=== PATIENT | male | born 1925 | race Caucasian/White ===

== ENCOUNTER 2016-05-28 12:19 | Inpatient (IN) | payer OTHER, MEDICARE ==
[2016-05-28] VITALS (9 sets, daily range): BP systolic 147–188; BP diastolic 68–93; PULSE 79–112; RESP 18; TEMP 97.7–100.2; O2SAT 94–98
[~2016-05-28] VITALS: Ht 180.3 cm; Wt 78.4 kg
[2016-05-28] MEDS ORDERED: AMLO5TAB2 PO (12:24)
[2016-05-28] MEDS ORDERED: KETO2AER3 (12:24)
[2016-05-28] MEDS ORDERED: LORA-392 PO (12:24)
[2016-05-28] MEDS ORDERED: ATOR20TA15 PO (12:24)
[2016-05-28] MEDS ORDERED: ARIC5TAB PO (12:24)
[2016-05-28] MEDS ORDERED: FLOR250C PO (12:24)
[2016-05-28] MEDS ORDERED: SODIUM CHLORIDE 0.9% FLUSH 5 ML FLUSH IVF PRN (12:30)
[2016-05-28 12:56] LABS: AUTOMATED NEUTROPHIL # 5.1 TH/MM3 (1.8-7.7); BASOPHIL # 0.1 TH/MM3 (0-0.2); BASOPHIL % 1.3 % (0.0-2.0); EOSINOPHIL # 0.7 TH/MM3 (0-0.4); EOSINOPHIL % 8.2 % (0.0-4.0); HEMATOCRIT 32.7 % (39.0-51.0); HEMO FLAGS DIFF FINAL; LYMPH % 17.6 % (9.0-44.0); LYMPHOCYTE # 1.5 TH/MM3 (1.0-4.8); MEAN CELL VOLUME 94.8 FL (80.0-100.0); MEAN CORPUSCULAR HEMOGLOBIN 32.4 PG (27.0-34.0); MEAN CORPUSCULAR HGB CONC 34.2 % (32.0-36.0); MONO % 11.1 % (0.0-8.0); NEUT % 61.8 % (16.0-70.0); PLATELET COUNT 210 TH/MM3 (150-450); RED BLOOD COUNT 3.44 MIL/MM3 (4.50-5.90); RED CELL DISTRIBUTION WIDTH 13.4 % (11.6-17.2); WHITE BLOOD COUNT 8.3 TH/MM3 (4.0-11.0)
[2016-05-28 13:06] LABS: CHLORIDE 101 MEQ/L (98-107); POTASSIUM 4.8 MEQ/L (3.5-5.1); SODIUM (NA) 135 MEQ/L (136-145)
[2016-05-28 13:09] LABS: ANION GAP 7 MEQ/L (5-15); BICARBONATE 26.6 MEQ/L (21.0-32.0)
[2016-05-28 13:10] LABS: APTT (PATIENT) 22.6 SEC (24.3-30.1); BLOOD UREA NITROGEN 30 MG/DL (7-18); PROTHROMBIN TIME - PATIENT 10.9 SEC (9.8-11.6)
[2016-05-28 13:12] LABS: ALT (GPT) 27 U/L (12-78)
[2016-05-28 13:13] LABS: AST (GOT) 31 U/L (15-37); GLOMERULAR FILTRATION RATE 38 ML/MIN (>89)
[2016-05-28 13:14] LABS: TOTAL BILIRUBIN ADULT 0.4 MG/DL (0.2-1.0)
[2016-05-28 13:15] LABS: ALKALINE PHOSPHATASE 85 U/L (45-117); CREATINE KINASE 112 U/L (39-308)
[2016-05-28 13:28] LABS: CKMB 2.6 NG/ML (0.5-3.6)
--- NOTE | 2016-05-28 13:35 | RADHPO ---
EXAM DATE/TIME: 05/28/2016 13:06 [facility] COMPARISON: No previous studies available for comparison. INDICATIONS : Short of breath MEDICAL HISTORY : None. SURGICAL HISTORY : None. ENCOUNTER: Initial ACUITY: 1 day PAIN SCORE: 0/10 LOCATION: Bilateral chest FINDINGS: A single view of the chest demonstrates the lungs to be symmetrically aerated without evidence of mas s, infiltrate or effusion. Atherosclerotic calcifications are present in the aorta. The cardiomediast inal contours are unremarkable. Osseous structures are intact. There are overlying electrocardiogram leads. CONCLUSION: No acute disease. Stan Arriaga MD on May 28, 2016 at 13:32 Board Certified Radiologist. This report was verified electronically.
--- NOTE | 2016-05-28 13:39 | PD ---
HPI Chief Complaint: Syncope/Near-Syncope Time Seen by Provider: 12:20 Travel History International Travel<30 days: No Contact w/Intl Traveler<30days: No Traveled to known affect area: No History of Present Illness HPI 89-year-old male who cannot provide history other than his right hip hurts presents by ambulance after he had a syncopal event and fell. Bystanders had said that he was out about 2 minutes. Patient does not recall any details about the event and history is significantly limited. PFSH Past Medical History High Cholesterol: Yes COPD: Yes Dementia: Yes Hypertension: Yes Tetanus Vaccination: < 5 Years Influenza Vaccination: Yes Past Surgical History Surgical History: Unable to Obtain Social History Alcohol Use: No Tobacco Use: No Substance Use: No Allergies-Medications (Allergen,Severity, Reaction): Coded Allergies: No Known Allergies (Unverified , 05/28/16) Reported Meds & Prescriptions Reported Meds & Active Scripts Active Reported Ketodan (Ketoconazole (Topical)) 2 % Aer Florastor (Saccharomyces Boulardii) 250 Mg Cap 250 Mg PO BID Atorvastatin (Atorvastatin Calcium) 20 Mg Tab 20 Mg PO HS Ativan (Lorazepam) 0.5 Mg Tab 0.5 Mg PO DAILY PRN Aricept (Donepezil) 5 Mg Tab 5 Mg PO HS Amlodipine (Amlodipine Besylate) 5 Mg Tab 5 Mg PO DAILY Review of Systems Except as stated in HPI: all other systems reviewed are Neg Physical Exam Narrative GENERAL: Well-nourished, well-developed patient. SKIN: Warm and dry. HEAD: Normocephalic and atraumatic. EYES: No injection or drainage. ENT: No nasal drainage noted. NECK: Supple, trachea midline. CARDIOVASCULAR: Regular rate and rhythm RESPIRATORY: No increased effort. No accessory muscle use. GASTROINTESTINAL: Abdomen soft, non-tender, nondistended. EXTREMITIES: Pain with palpation of right hip, no pain with other joints , neurovascularly intact, no lacerations over, compartments soft. NEUROLOGICAL: Awake, moves all extremities, clear speech Data Data Last Documented VS Vital Signs Date Time Temp Pulse Resp B/P Pulse Ox O2 Delivery O2 Flow Rate FiO2 05/28/16 12:40 Room Air 94 05/28/16 12:30 97.7 79 18 150/69 94 Orders Electrocardiogram (05/28/16 12:21) Complete Blood Count With Diff (05/28/16 12:21) Comprehensive Metabolic Panel (05/28/16 12:21) Magnesium (Mg) (05/28/16 12:21) Ckmb (Isoenzyme) Profile (05/28/16 12:21) Troponin I (05/28/16 12:21) Act Partial Throm Time (Ptt) (05/28/16 12:21) Prothrombin Time / Inr (Pt) (05/28/16 12:21) Urinalysis - C+S If Indicated (05/28/16 12:21) Chest, Single Ap (05/28/16 12:21) Ct Brain W/O Iv Contrast(Rout) (05/28/16 12:21) Ecg Monitoring (05/28/16 12:21) Iv Access Insert/Monitor (05/28/16 12:21) Oximetry (05/28/16 12:21) Sodium Chloride 0.9% Flush (Ns Flush) (05/28/16 12:30) Hip, Uni(Ap&Lat) W Ap Pelvis (05/28/16 ) CKMB (05/28/16 12:45) CKMB% (05/28/16 12:45) Sodium Chlor 0.9% 1000 Ml Inj (Ns 1000 M (05/28/16 15:00) Urinary Catheter Insert/Apply (05/28/16 14:53) Admit Order (Ed Use Only) (05/28/16 14:55) Labs Laboratory Tests Test 05/28/16 12:45 White Blood Count 8.3 TH/MM3 Red Blood Count 3.44 MIL/MM3 Hemoglobin 11.2 GM/DL Hematocrit 32.7 % Mean Corpuscular Volume 94.8 FL Mean Corpuscular Hemoglobin 32.4 PG Mean Corpuscular Hemoglobin 34.2 % Concent Red Cell Distribution Width 13.4 % Platelet Count 210 TH/MM3 Mean Platelet Volume 8.0 FL Neutrophils (%) (Auto) 61.8 % Lymphocytes (%) (Auto) 17.6 % Monocytes (%) (Auto) 11.1 % Eosinophils (%) (Auto) 8.2 % Basophils (%) (Auto) 1.3 % Neutrophils # (Auto) 5.1 TH/MM3 Lymphocytes # (Auto) 1.5 TH/MM3 Monocytes # (Auto) 0.9 TH/MM3 Eosinophils # (Auto) 0.7 TH/MM3 Basophils # (Auto) 0.1 TH/MM3 CBC Comment DIFF FINAL Differential Comment Prothrombin Time 10.9 SEC Prothromb Time International 1.0 RATIO Ratio Activated Partial 22.6 SEC Thromboplast Time Sodium Level 135 MEQ/L Potassium Level 4.8 MEQ/L Chloride Level 101 MEQ/L Carbon Dioxide Level 26.6 MEQ/L Anion Gap 7 MEQ/L Blood Urea Nitrogen 30 MG/DL Creatinine 1.70 MG/DL Estimat Glomerular Filtration 38 ML/MIN Rate Random Glucose 84 MG/DL Calcium Level 8.2 MG/DL Magnesium Level 2.0 MG/DL Total Bilirubin 0.4 MG/DL Aspartate Amino Transf 31 U/L (AST/SGOT) Alanine Aminotransferase 27 U/L (ALT/SGPT) Alkaline Phosphatase 85 U/L Total Creatine Kinase 112 U/L Creatine Kinase MB 2.6 NG/ML Troponin I LESS THAN 0.02 NG/ML Total Protein 7.3 GM/DL Albumin 3.3 GM/DL MDM Medical Decision Making Medical Screen Exam Complete: Yes Emergency Medical Condition: Yes Medical Record Reviewed: Yes (past history confirmed) Interpretation(s) EKG is sinus rhythm without STEMI criteria CBC & BMP Diagram 05/28/16 12:45 Last [address] 05/28/16 1221 Signed Impressions: Service Date/Time: Saturday, May 28, 2016 13:59 - CONCLUSION: No acute intracranial disease. Cerebral atrophy. Sander Galindo MD Chest X-Ray 05/28/16 1221 Signed Impressions: Service Date/Time: Saturday, May 28, 2016 13:06 - CONCLUSION: No acute disease. Satn Arriaga MD Hip and Pelvis X-Ray 05/28/16 0000 Signed Impressions: Service Date/Time: Saturday, May 28, 2016 13:10 - CONCLUSION: Mildly displaced intertrochanteric fracture of right hip. Sander Galindo MD Differential Diagnosis Fracture, strain, dislocation, SD, anemia, renal failure... Narrative Course Will check blood work, imaging and reevaluate ed workup with renal insufficiency and hip fracture. Lengthy discussion with the family that was updated bedside. They took notes and updated other family members. We'll discuss with admission hospital and orthopedic physician. Family initially requesting [facility] but then agreed to director organizational physician given he was part of that group Physician Communication Physician Communication dr redd agrees to admit dr los stacy agrees to consult, states needs to be at main for OR at 6 Diagnosis Primary Impression: Hip fracture, right Qualified Code: S72.001A - Hip fracture, right, closed, initial encounter Additional Impression: Renal insufficiency Admitting Information Admitting Physician Requests: Admit Kika Callejas MD May 28, 2016 13:39
--- NOTE | 2016-05-28 13:56 | RADHPO ---
EXAM DATE/TIME: 05/28/2016 13:10 [facility] COMPARISON: No previous studies available for comparison. INDICATIONS : Right hip pain after fall. MEDICAL HISTORY : None. SURGICAL HISTORY : None. ENCOUNTER: Initial ACUITY: 1 day PAIN SCORE: 3/10 LOCATION: Right anterior hip FINDINGS: Examination of the right hip was performed with AP Pelvis. Mild degenerative changes of the right hip . Mildly displaced intertrochanteric fracture. Femoral neck intact. Prosthetic seeds are seen. Right- sided iliac stent and coils. The acetabulum is grossly intact. CONCLUSION: Mildly displaced intertrochanteric fracture of right hip. Sander Galindo MD on May 28, 2016 at 13:54 Board Certified Radiologist. This report was verified electronically.
--- NOTE | 2016-05-28 14:43 | RADHPO ---
EXAM DATE/TIME: 05/28/2016 13:59 [facility] COMPARISON: No previous studies available for comparison. INDICATIONS : Syncopal episode and fell to the floor. RADIATION DOSE: 56.14 CTDIvol (mGy) MEDICAL HISTORY : Hypertension. Chronic obstructive pulmonary disease. SURGICAL HISTORY : None. ENCOUNTER: Initial ACUITY: 1 day PAIN SCALE: 0/10 LOCATION: cranial TECHNIQUE: Multiple contiguous axial images were obtained of the head. Using automated exposure control and adj ustment of the mA and/or kV according to patient size, radiation dose was kept as low as reasonably a chievable to obtain optimal diagnostic quality images. FINDINGS: CEREBRUM: Cerebral atrophy. The ventricles are normal for age. No evidence of midline shift, mass lesion, hemo rrhage or acute infarction. No extra-axial fluid collections are seen. POSTERIOR FOSSA: The cerebellum and brainstem are intact. The 4th ventricle is midline. The cerebellopontine angle i s unremarkable. EXTRACRANIAL: The visualized portion of the orbits is intact. SKULL: The calvaria is intact. No evidence of skull fracture. CONCLUSION: No acute intracranial disease. Cerebral atrophy. Sander Galindo MD on May 28, 2016 at 14:41 Board Certified Radiologist. This report was verified electronically.
[2016-05-28] MEDS ORDERED: SODIUM CHLOR 0.9% 1000 ML INJ 1,000 ML IV ONE (15:00)
[2016-05-28] MEDS ORDERED: ONDANSETRON HCL 4 MG/2 ML VIAL IV PUSH ONE (15:15)
[2016-05-28] MEDS ORDERED: MORPHINE SULFATE 4 MG/ML INJ IV PUSH ONE (15:15)
[2016-05-28 15:32] LABS: BLOOD, URINE SMALL (NEG); GLUCOSE,URINE NEG (NEG); KETONE, URINE NEG (NEG); NITRITE,URINE NEG (NEG)
[2016-05-28 15:52] LABS: METHOD OF COLLECTION CLEAN CATCH; URINE COLOR YELLOW (YELLW/STRAW)
[2016-05-28 15:53] LABS: COMMENT (UR) CULT NOT INDICATED; CULTURE IF INDICATED CULT NOT INDICATED; SQUAMOUS EPITHELIAL CELL URINE 0-5 /hpf (0-5)
[2016-05-28] MEDS ORDERED: LORazepam 0.5 MG TAB PO ONE (17:15)
[2016-05-28] MEDS ORDERED: ONDANSETRON HCL 4 MG/2 ML VIAL IVP PRN (17:30)
[2016-05-28] MEDS ORDERED: NALOXONE HCL 0.4 MG/ML AMP IV PRN (17:30)
[2016-05-28] MEDS ORDERED: ACETAMINOPHEN 325 MG TAB PO PRN (17:30)
[2016-05-28] MEDS ORDERED: SODIUM CHLORIDE 0.9% FLUSH 5 ML FLUSH FLUSH PRN (17:30)
[2016-05-28] MEDS ORDERED: SERO25TA PO (18:04)
[2016-05-28] MEDS ORDERED: NAME10TA PO (18:04)
[2016-05-28] MEDS ORDERED: LORA1TAB12 PO (18:04)
[2016-05-28] MEDS ORDERED: VALS1TAB70 PO (18:04)
[2016-05-28] MEDS: amLODIPine BESYLATE 5 MG TAB PO SCH (18:33)
[2016-05-28] MEDS: SODIUM CHLOR 0.9% 1000 ML INJ 1,000 ML IV SCH (18:33)
[2016-05-28] MEDS ORDERED: NON-FORMULARY DRUG (Saccharomyces Boulardii (Florastor) 250 MG) PO SCH (21:00)
[2016-05-28] MEDS ORDERED: SODIUM CHLORIDE 0.9% FLUSH 5 ML FLUSH FLUSH SCH (21:00)
[2016-05-28] MEDS: ATORVASTATIN 20 MG TAB PO SCH (22:24)
[2016-05-28] MEDS: DONEPEZIL HCL 5 MG TAB PO SCH (22:24)
[2016-05-29] VITALS (7 sets, daily range): BP systolic 144–155; BP diastolic 69–75; PULSE 98–105; RESP 17–20; TEMP 98.6–100; O2SAT 90–95
[2016-05-29] MEDS: SODIUM CHLOR 0.9% 1000 ML INJ 1,000 ML IV SCH ×3 (03:36→23:30)
--- NOTE | 2016-05-29 07:11 | PD.ORT.PN ---
Subjective Subjective Remarks Fall at assisted living facility [facility]. Right hip pain and unable to ambulate. Patient has significant dementia Objective Vitals Vital Signs Date Time Temp Pulse Resp B/P Pulse Ox O2 Delivery O2 Flow Rate FiO2 05/29/16 03:45 102 18 148/74 94 Room Air 05/29/16 02:55 105 18 155/69 95 Room Air 05/29/16 00:10 98.6 105 20 144/75 95 Room Air 05/28/16 20:20 99.8 107 18 149/74 94 Room Air 05/28/16 19:45 100.2 112 05/28/16 19:05 107 18 147/77 94 Room Air 05/28/16 18:20 108 18 188/93 94 Room Air 05/28/16 17:20 88 18 159/68 97 Room Air 05/28/16 16:20 80 18 149/78 97 Room Air 05/28/16 15:20 84 18 156/78 98 Room Air 05/28/16 14:20 84 18 155/74 96 Room Air 05/28/16 12:40 Room Air 94 05/28/16 12:30 97.7 79 18 150/69 94 Result Diagram: 05/28/16 1245 05/28/16 1245 Other Results Laboratory Tests Test 05/28/16 12:45 Prothrombin Time 10.9 SEC (9.8-11.6) Prothromb Time International 1.0 RATIO Ratio Imaging Last [address] 05/28/16 1221 Signed Impressions: Service Date/Time: Saturday, May 28, 2016 13:59 - CONCLUSION: No acute intracranial disease. Cerebral atrophy. Sander Galindo MD Chest X-Ray 05/28/16 1221 Signed Impressions: Service Date/Time: Saturday, May 28, 2016 13:06 - CONCLUSION: No acute disease. Stan Arriaga MD Objective Remarks Bilateral upper extremities: No pain with range of motion of shoulder elbow or wrist. Intact sensation distally Left lower extremity: Full range of motion neurovascular intact Right lower extremity: Pain with motion of hip. No pain with knee or ankle range of motion. Distally intact sensation good capillary refills Assessment & Plan Assessment and Plan Right intertrochanteric femur fracture Nothing by mouth Surgery this morning with Dr. Jarek HAINES,STAN Azar PA-C May 29, 2016 07:11
[2016-05-29] MEDS ORDERED: GENTAMICIN SULFATE 80 MG/2 ML VIAL ONE ×2 (07:20→09:39)
[2016-05-29] MEDS ORDERED: KETAMINE HCL 500 MG/5 ML VIAL ONE (07:24)
[2016-05-29] MEDS ORDERED: ceFAZolin 2 GM PREMIX 50 ML ONE (07:36)
[2016-05-29] MEDS ORDERED: ceFAZolin INJ 1,000 MG VIAL ONE (08:12)
[2016-05-29] MEDS ORDERED: VANCOMYCIN HCL 1000 MG VIAL ONE ×2 (08:12→10:00)
[2016-05-29 08:19] LABS: BASOPHIL % 0.2 % (0.0-2.0); EOSINOPHIL # 0.3 TH/MM3 (0-0.4); EOSINOPHIL % 2.6 % (0.0-4.0); HEMATOCRIT 31.9 % (39.0-51.0); HEMO FLAGS DIFF FINAL; LYMPH % 11.9 % (9.0-44.0); LYMPHOCYTE # 1.3 TH/MM3 (1.0-4.8); MEAN CELL VOLUME 95.1 FL (80.0-100.0); MEAN CORPUSCULAR HEMOGLOBIN 32.6 PG (27.0-34.0); MEAN CORPUSCULAR HGB CONC 34.3 % (32.0-36.0); MONO % 13.2 % (0.0-8.0); NEUT % 72.1 % (16.0-70.0); PLATELET COUNT 193 TH/MM3 (150-450); RED BLOOD COUNT 3.35 MIL/MM3 (4.50-5.90); RED CELL DISTRIBUTION WIDTH 13.6 % (11.6-17.2); WHITE BLOOD COUNT 11.1 TH/MM3 (4.0-11.0)
[2016-05-29 08:46] LABS: BICARBONATE 21.6 MEQ/L (21.0-32.0); POTASSIUM 4.2 MEQ/L (3.5-5.1)
[2016-05-29] MEDS: amLODIPine BESYLATE 5 MG TAB PO SCH (09:00)
[2016-05-29] MEDS ORDERED: BUPIVACAINE/EPINEPHRINE 0.25% PF 30 ML VIAL ONE (09:39)
[2016-05-29] MEDS ORDERED: fentaNYL CITRATE 250 MCG/5 ML AMP ONE (09:43)
[2016-05-29] MEDS ORDERED: ACETAMINOPHEN 1000 MG/100 ML VIAL IV ONE (09:43)
[2016-05-29] MEDS ORDERED: ERGOCALCIFEROL (VIT D2) 50,000 UNIT CAP PO ONE (10:00)
[2016-05-29] MEDS ORDERED: diphenhydrAMINE HCL 25 MG CAP PO PRN (10:00)
[2016-05-29] MEDS ORDERED: SODIUM CHLORIDE 0.9% FLUSH 5 ML FLUSH IVF PRN (10:00)
--- NOTE | 2016-05-29 10:13 | EC ---
Study Study Date:05/29/2016 STUDY CONCLUSIONS SUMMARY - Left ventricle: The cavity size was normal. Wall thickness was normal. Systolic function was normal. The estimated ejection fraction was in the range of 55% to 60%. Wall motion was normal; there were no regional wall motion abnormalities. - Aortic valve: Calcified annulus. Trileaflet; normal thickness, moderately calcified leaflets. Calcification. Cusp separation was moderately reduced. Valve mobility was restricted. Transvalvular velocity was increased more than expected, due to stenosis. There was severe stenosis. Valve area: 1.33cm^2(VTI). Valve area: 1.15cm^2 (Vmax). - Pulmonary arteries: PA peak pressure: 50mm Hg (S). If LV function is below 40, please consider prescribing an ACEI or ARB or document rationale for non-use. PROCEDURE DATA STUDY STATUS: Elective. Procedure: Transthoracic echocardiography. Image quality was good. Scanning was performed from the parasternal, apical, and subcostal acoustic windows. Study completion: The patient tolerated the procedure well. Transthoracic echocardiography. M-mode, complete 2D, complete spectral Doppler, and color Doppler. Patient status: Inpatient. CARDIAC ANATOMY LEFT VENTRICLE: The cavity size was normal. Wall thickness was normal. Systolic function was normal. The estimated ejection fraction was in the range of 55% to 60%. Wall motion was normal; there were no regional wall motion abnormalities. AORTIC VALVE: Calcified annulus. Trileaflet; normal thickness, moderately calcified leaflets. Calcification. Cusp separation was moderately reduced. Valve mobility was restricted. Doppler: Transvalvular velocity was increased more than expected, due to stenosis. There was severe stenosis. No regurgitation. Valve area: 1.33cm^2(VTI). Valve area: 1.15cm^2 (Vmax). Mean gradient: 46mm Hg (S). Peak gradient: 86mm Hg (S). AORTA: Aortic root: The aortic root was normal in size. MITRAL VALVE: Structurally normal valve. Doppler: Transvalvular velocity was within the normal range. There was no evidence for stenosis. No regurgitation. LEFT ATRIUM: The atrium was normal in size. RIGHT VENTRICLE: The cavity size was normal. Wall thickness was normal. PULMONIC VALVE: Doppler: Transvalvular velocity was within the normal range. There was no evidence for stenosis. No regurgitation. TRICUSPID VALVE: Structurally normal valve. Doppler: Transvalvular velocity was within the normal range. No regurgitation. PULMONARY ARTERY: The main pulmonary artery was normal-sized. Systolic pressure was within the normal range. RIGHT ATRIUM: The atrium was normal in size. PERICARDIUM: There was no pericardial effusion. SYSTEMIC VEINS: Inferior vena cava: The vessel was normal in size. BASIC MEASUREMENTS ADULT Normal Left ventricle LV internal dimension, ED, chordal level, *32.6 mm 43-52 PLAX LV internal dimension, ES, chordal level, 23.8 mm 23-38 PLAX Fractional shortening, chordal level, PLAX *27 % >29 LV posterior wall thickness, ED 10.8 mm IVS/LVPW ratio, ED *1.34 <1.3 Ventricular septum Septal thickness, ED 14.5 mm Aortic valve Leaflet separation *13 mm 15-26 Right ventricle RV internal dimension, ED, PLAX 25.5 mm 19-38 BASIC MEASUREMENTS ADULT Normal Aortic valve Leaflet separation *13 mm 15-26 Aorta Root diameter, ED 34 mm 20-37 Left atrium Anterior-posterior dimension, ES 29 mm 19-40 LA/aortic root ratio 0.85 DOPPLER MEASUREMENTS ADULT Normal Main pulmonary artery Pressure, S *50 mm Hg =30 Aortic valve Peak velocity, S 465 cm/s Mean velocity, S 314 cm/s VTI, S 91.8 cm Mean gradient, S 46 mm Hg Peak gradient, S 86 mm Hg Valve area, VTI 1.33 cm^2 Valve area, Vmax 1.15 cm^2 Tricuspid valve Regurgitant peak velocity 304 cm/s Peak RV-RA gradient, S 37 mm Hg Maximal regurgitant velocity 304 cm/s Systemic veins Estimated CVP 10 mm Hg Right ventricle RV pressure, S *50 mm Hg <30 LEGEND: Mean values are shown as u=mean value. Asterisk (*) manzano values outside specified normal range. Prepared and signed by Reza Carroll [id number]
[2016-05-29] MEDS ORDERED: SUGAMMADEX SODIUM 200 MG/2 ML VIAL IV PUSH ONE ×2 (10:25)
--- NOTE | 2016-05-29 10:27 | PD.OP ---
cc: Waqar Soler MD Operative Report Date of Surgery: May 29, 2016 Preoperative Diagnosis: Right hip intertrochanteric fracture Postoperative Diagnosis: Procedure: Right hip reduction and intramedullary nail fixation Anesthesia: Gen. Surgeon: Waqar Soler Echocardiography Technologist(s): ZION Matta PA-C The surgical procedure was assisted by my physician licensed physical therapy assistant. My P.A. presence was necessary throughout this case for the manipulation and positioning of the surgical extremity. My P.A. was assisting me throughout the duration of this procedure. The skill set of a physician licensed physical therapy assistant was medically necessary to complete this procedure. During the surgical case the surgical appliances salesperson was working at the back table and the physician licensed physical therapy assistant was directly assisting me. Operation and Findings: Implants used: [10]mm 130 Synthes TFNA short troch nail Plan of activity: Weight-bear as tolerated Patient was seen and evaluated preoperatively. The patient has significant hip pain from intertrochanteric hip fracture. The risk and benefits of surgery were discussed in depth with the patient to include bleeding infection nonunion malunion and need for hip replacement painful hardware as well as medical competitions including but not stroke heart attack and . Informed consent was obtained. Operative site was marked. Patient was brought to the operating room and placed on fracture table. IV sedation was administered by anesthesiologist. Timeout procedure was performed. Hip and leg were prepped with alcohol followed by DuraPrep and draped in the usual sterile fashion. IV antibiotics were given prior to incision. Procedure began with reduction of fracture. Traction was applied. The leg was manipulated to achieve reduction. Excellent reduction was achieved. Fluoroscopy was used to confirm reduction. A three inch incision was made proximal to the trochanter. Subcutaneous tissue was dissected bluntly. Guidepin was placed at the tip of the trochanter and advanced into the femoral canal. Fluoroscopy confirmed appropriate guidepin placement. A opening reamer was placed over the guidepin. The Synthes TFNA nail was attached to the insertion handle. Nail was now placed through the tip of the trochanter into the femoral canal. Fluoroscopy confirmed appropriate nail placement. A second incision was made over the lateral thigh. Cannulas were placed through the insertion handle down to the femur. Guidepin was now placed through the femoral nail into the center of the femoral head. Fluoroscopy confirmed appropriate guidepin placement. Screw length was measured. Cannulated drill was placed over the guidepin. Appropriate length lag screw was now placed. Traction was released and compression was applied. The set screw was now tightened in dynamic mode. Using the insertion handle as a guide a distal interlocking screw was drilled and placed. Final fluoroscopy revealed well aligned fracture with well-placed hardware. Incision was closed with 3-0 Vicryl and mayank. Sterile dressings were applied. Patient was awakened and transferred to recovery room. Waqar Soler MD May 29, 2016 10:27
--- NOTE | 2016-05-29 10:32 | MB ---
cc: ZAY CASTANEDA DATE OF CONSULTATION 05/29/2016 REASON FOR CONSULTATION Right hip intertrochanteric fracture. HISTORY Triston is an 89-year-old male with a severe dementia. He is unable to give any history. His is at bedside with him. He currently resides in an inpatient locked down unit for patients with dementia. He reportedly had a fall at his facility. He presented to [facility] where x-rays revealed a left hip intertrochanteric fracture. He is currently awake and relatively comfortable in the preop holding area. He is in no acute distress. He does not recall the fall. He may have had a syncopal episode. He complains of left hip pain with movement. He has minimal pain at rest. PAST MEDICAL HISTORY ILLNESSES: 1. Alzheimer's dementia 2. Hypertension 3. COPD 4. High cholesterol ALLERGIES NO KNOWN DRUG ALLERGIES. MEDICATIONS Medications include: 1. Ketoconazole 2. Florastor 3. Atorvastatin 4. Ativan 5. Aricept 6. Amlodipine SOCIAL HISTORY The patient current lives is an inpatient unit for dementia. He denies alcohol, tobacco or drug use. REVIEW OF SYSTEMS Unobtainable secondary to dementia. PHYSICAL EXAMINATION The patient is a well-developed, well-nourished 89-year-old male who is awake, but confused. VITAL SIGNS: Temperature 98.3, pulse 74, respirations 15, blood pressure 169/80, O2 sat 99% on room air. HEAD: The patient is normocephalic. EYES: Pupils are equal. NECK: Soft and nontender. Trachea is midline. ABDOMEN: Soft, nontender, nondistended. EXTREMITIES: Examination of bilateral upper extremities reveals no obvious pain or deformity with shoulder, elbow or wrist motion. Radial pulses are palpable bilaterally. Sensation is intact in the radial, ulnar and median nerve distributions bilaterally. Tower Equipment Installer strength is +5 bilaterally. Examination of right leg reveals no pain with hip, knee or ankle motion. Skin is intact. Dorsalis pedis pulse is palpable. Examination of the right leg reveals pain with any hip motion. He has no tenderness about his knee, tibia or ankle. Skin is intact. Dorsalis pedis pulses palpable. X-RAYS X-rays of left hip were reviewed. X-rays reveal a mildly displaced left hip intertrochanteric fracture. IMPRESSION 1. Dementia 2. Left hip intertrochanteric fracture. 3. Possible aortic stenosis 4. COPD 5. Hypertension. PLAN Treatment options were discussed with the patient and the family. At this point, I would recommend reduction and intramedullary nail fixation of the left hip. The risks of surgery include bleeding, infection, injury to arteries, nerves and blood vessels, nonunion, malunion, painful hardware, as well as medical complications including blood clot, stroke, heart attack and . All questions were answered. I will plan on surgery today. A mid-level provider in my office (nurse practitioner or physician oral surgery assistant) may see this patient on follow-up visits and continue to implement the objectives of this plan including: Starting or adjusting medications, injections , cast application, orthotics, brace application, physical therapy, radiological studies (including x-ray, MRI, CT, ultrasound, bone scan), vascular studies, neurologic studies, specialist consultation, and proceeding with surgical management, as appropriate. MD DI Fraire/BEATRICE /9:53 AM /10:23 AM SARA
[2016-05-29] MEDS ORDERED: XARE10TA PO (10:51)
[2016-05-29] MEDS ORDERED: NORC5TAB PO (10:51)
[2016-05-29] MEDS ORDERED: WALKER/ADULT/FO1 MIS (10:52)
[2016-05-29] MEDS ORDERED: *morphine SULFATE 8 MG/ML PERIprocedure ONLY ONE (11:05)
--- NOTE | 2016-05-29 11:23 | EKG ---
Date Performed: 05/28/2016 Time Performed: 12:34:08 PTAGE: 89 years EKG: Sinus rhythm with 1st degree A-V block Abnormal ECG NO PREVIOUS TRACING DOCTOR: Levy Arellano Interpretating Date/Time 05/29/2016 11:22:46
[2016-05-29] MEDS: CALCIUM/VITAMIN D 250 MG/125 U TAB PO SCH ×2 (13:00→18:18)
[2016-05-29] MEDS ORDERED: PROPOFOL 200 MG/20 ML AMP IV ONE (14:36)
[2016-05-29] MEDS ORDERED: LACTATED RINGER'S 1000 ML INJ 1,000 ML IV ONE (14:36)
[2016-05-29] MEDS ORDERED: ONDANSETRON HCL 4 MG/2 ML VIAL IV PUSH ONE (14:36)
[2016-05-29] MEDS: ACETAMINOPHEN/HYDROcodone 325 MG/5 MG TAB PO PRN ×2 (15:36→20:30)
--- NOTE | 2016-05-29 15:36 | RADRPT ---
EXAM DATE/TIME: 05/29/2016 10:24 [facility] COMPARISON: HIP RIGHT (AP&LAT 2/3VWS) W AP PELVIS, May 28, 2016, 13:10. INDICATIONS : ORIF right hip troch nail. MEDICAL HISTORY : None. SURGICAL HISTORY : None. ENCOUNTER: Subsequent ACUITY: 2 days PAIN SCORE: Non-responsive. LOCATION: Right hip FINDINGS: 4 images are centered over the hip joint and reveal an intramedullary adonis and femoral neck screw. The femoral neck screw is contained within the cortical confines of the femoral head. Good alignment at the fracture site is seen. CONCLUSION: Limited images as detailed above. Ever Stephen Jr., MD on May 29, 2016 at 15:04 Board Certified Radiologist. This report was verified electronically.
--- NOTE | 2016-05-29 16:18 | MB ---
cc: SHERRILL PFEIFFER MD DATE OF CONSULTATION: 05/29/2016 REASON FOR CONSULTATION: Medical management. TRAVEL IN THE LAST THIRTY DAYS? No. HISTORY OF PRESENT ILLNESS: This is a pleasant, demented white male who had a fall yesterday. He does not remember any details regarding the fall. He has been living in an inpatient locked unit since the end of January 2016 secondary to his Alzheimer's dementia. Currently his is present and in the room and has given some of the history and information. She does not know any other details as to the fall except for the fact that he did fall. When the staff attempted to get him up from the floor, he grabbed his right hip and complained of acute pain. He was brought to the [facility] Emergency Room and x-rays revealed a left hip intertrochanteric fracture. He was sent over today to be seen by Dr. Tilley, who has done a right hip arthroplasty. The patient is postop now in the room. He is sitting up in the chair. His eyes are open. He responds to simple verbal stimuli. He is a poor historian and cannot give any current or historical information. The information I have gathered is according to the record and his . PAST MEDICAL HISTORY: His medical history includes: 1. Alzheimer's dementia. 2. COPD. 3. Hyperlipidemia. 4. Hypertension. PAST SURGICAL HISTORY: He is status post right hip arthroplasty. ALLERGIES: NO KNOWN ALLERGIES. MEDICATIONS: 1. Valsartan. 2. Xarelto. 3. Florastor. 4. Ketodan topical cream. 5. Seroquel. 6. Ativan. 7. Namenda. 8. Amlodipine. 9. . 10. [place]. 11. Aricept. SOCIAL HISTORY: The patient is , currently lives in the inpatient locked unit. His lives in their home. Currently he does not smoke, drink any alcohol or use any drugs. FAMILY HISTORY: N/A. REVIEW OF SYSTEMS: A twelve-point assess was attempted but due to the patient's poor historian nature, was unable to gather most of the information. Currently the patient is alert. He has no facial grimace and is complaining of no pain. PHYSICAL EXAMINATION: VITAL SIGNS: Temperature is 99, pulse 98, respirations 18, blood pressure 150/73 and 136/77 is the low, O2 sat has averaged between 90 and 93. He currently has four liters nasal cannula 02 when needed. GENERAL: Mildly obese well-nourished white male who looks to be his stated age, sitting up in the chair, eyes open. No facial grimace. Can answer simple questions with "yes" or "no". SKIN: His skin is pink, warm and dry. HEAD, EYES, EARS, NOSE, THROAT: Atraumatic, normocephalic. Pupils equal, round and reactive to light. No scleral icterus. Tongue is pink, moist and midline. He has no drainage from his nasal cavity or his oral cavity. NECK: Neck is supple. Trachea is midline. CARDIOVASCULAR: Regular rate and rhythm. Systolic murmur grade 3/6 heard throughout the precordium predominantly at the left sternal border. No rubs or gallops. He has trace of edema and his pulses are intact. PULMONARY: Lungs are essentially clear anteriorly and posteriorly with no wheezes, rales or rhonchi. His work of effort to breathe is normal. ABDOMEN: Abdomen is round and taut, nontender. Active bowel sounds in all four quads. MUSCULOSKELETAL: He can move his hands with equal hand production control technologist. He can move both feet and legs on command with some guarding to the right extremity. NEUROLOGIC: He is alert, a poor historian and responds to verbal stimuli and tactile stimuli and follows you with his eyes. DIAGNOSTIC DATA: Chest x-ray shows no acute cardiopulmonary disease. Hip/pamela x-ray shows mildly displaced intertrochanteric fracture of the right hip. CT of the head shows no acute intracranial disease, cerebral atrophy. ASSESSMENT: 1. Alzheimer's dementia. 2. Renal insufficiency. 3. Leukocytosis, mild. 4. Anemia, probable secondary to chronic disease. 5. Status post right hip arthroplasty. PLAN: We have been consulted for our medical management. 1. We will monitor the patient's vital signs, which include any fever, any changes in heart rate, breathing or blood pressure. 2. His medications have been reconciled. 3. He currently is on Lovenox for DVT prophylaxis. 4. Vital signs are q. 4. 5. Neuro checks are q.4. 6. The patient is on an 1800 calorie ADA diet, although I see no knowledge of him being a diabetic. His glucoses on labs are 84-104 on his blood sugar. 7. He will receive gentle hydration. 8. Case management will work with discharge planning. 9. All pain management and orthopedic needs will be managed by Dr. Tilley. 10. To my knowledge, the patient is full code, full aggressive care. We will follow. Thank you very much for this consult. Dictated by ERNIE Walsh Sherrill Pfeiffer MD JP/RANJITH /3:13 PM /4:18 PM Pt was seen and examined on floor as above on day of admission face to face time spent with pt chart was reviewed in detail including meds labs and notes and rad data plan of care was dilip cherry pt's at bedside in detail including code status. she will talk to her family and let us know MTDD
[2016-05-29] MEDS: ATORVASTATIN 20 MG TAB PO SCH (20:30)
[2016-05-29] MEDS: SODIUM CHLORIDE 0.9% FLUSH 5 ML FLUSH IVF SCH (20:30)
[2016-05-29] MEDS: DONEPEZIL HCL 5 MG TAB PO SCH (20:30)
[2016-05-30] VITALS (9 sets, daily range): BP systolic 126–176; BP diastolic 58–73; PULSE 81–114; RESP 18–20; TEMP 96–100; O2SAT 83–94
--- NOTE | 2016-05-30 06:28 | PD.ORT.PN ---
Subjective Subjective Remarks Patient is awake and appears comfortable. Status post intramedullary nail fixation of intertrochanteric hip fracture. Patient confused with dementia. Objective Vitals Vital Signs Date Time Temp Pulse Resp B/P Pulse Ox O2 Delivery O2 Flow Rate FiO2 05/30/16 04:15 96.0 84 20 136/62 94 05/30/16 00:05 99.6 91 20 126/63 92 05/29/16 20:25 100.0 103 20 148/75 95 05/29/16 20:00 101 05/29/16 20:00 Nasal Cannula 4.00 05/29/16 18:36 90 Nasal Cannula 3.00 05/29/16 14:10 Nasal Cannula 2.00 05/29/16 14:08 98.9 98 17 150/73 93 05/29/16 13:16 93 18 136/77 93 Nasal Cannula 4 05/29/16 11:30 94 18 150/66 92 Nasal Cannula 4 05/29/16 11:15 96 18 153/89 91 Nasal Cannula 5 05/29/16 11:00 99 18 165/81 90 Nasal Cannula 5 05/29/16 10:50 97.8 95 16 155/87 90 Nasal Cannula 5 05/29/16 06:45 94 15 169/80 99 I/O 05/29/16 05/29/16 05/29/16 05/30/16 05/30/16 05/30/16 07:00 15:00 23:00 07:00 15:00 23:00 Intake Total 1000 ml 240 ml Output Total 550 ml 350 ml Balance 450 ml -110 ml Intake Oral 240 ml IV Total 200 ml Other 800 ml Output Urine Total 100 ml 350 ml Estimated Blood Loss 50 ml Other 400 ml # Bowel Movements 0 Result Diagram: 05/29/16 0754 05/29/16 0754 Imaging Last [address] 05/28/16 1221 Signed Impressions: Service Date/Time: Saturday, May 28, 2016 13:59 - CONCLUSION: No acute intracranial disease. Cerebral atrophy. Sander Galindo MD Chest X-Ray 05/28/16 1221 Signed Impressions: Service Date/Time: Saturday, May 28, 2016 13:06 - CONCLUSION: No acute disease. Stan Arriaga MD Objective Remarks Bilateral upper extremities: No pain with range of motion of shoulder elbow or wrist. Intact sensation distally Left lower extremity: Full range of motion neurovascular intact Right lower extremity: Clean dressing on right hip. Distally intact sensation good capillary refills Assessment & Plan Assessment and Plan Right intertrochanteric femur fracture--postop day #1 status post IMN Weight-bear as tolerated Lovenox/Xarelto SNF on Thursday if medically cleared Waqar Tilley MD May 30, 2016 06:28
[2016-05-30 07:01] LABS: HEMATOCRIT 28.8 % (39.0-51.0); REVIEW FLAG FINAL
[2016-05-30] MEDS: SODIUM CHLORIDE 0.9% FLUSH 5 ML FLUSH IVF SCH ×2 (09:00→21:36)
[2016-05-30] MEDS: CHOLECALCIFEROL (VIT D3) 5000 UNIT CAP PO SCH (09:47)
[2016-05-30] MEDS: CALCIUM/VITAMIN D 250 MG/125 U TAB PO SCH ×3 (09:47→18:20)
[2016-05-30] MEDS: ACETAMINOPHEN/HYDROcodone 325 MG/5 MG TAB PO PRN ×4 (09:48→21:37)
[2016-05-30] MEDS: amLODIPine BESYLATE 5 MG TAB PO SCH (09:48)
[2016-05-30] MEDS ORDERED: INFLUENZA VIRUS VACCINE (QUADRIVALENT) 0.5 ML SYR IM ONE (10:00)
[2016-05-30] MEDS ORDERED: PNEUMOCOCCAL POLYVALENT INJ 25 MCG/0.5 ML SYR IM ONE (10:00)
[2016-05-30] MEDS: ENOXAPARIN SODIUM 30 MG/0.3 ML SYRINGE SQ SCH (10:01)
--- NOTE | 2016-05-30 10:23 | HHI.PR ---
Subjective Subjective Remarks awake, oriented x 1-2 pleasant no complaints family at [facility] difficult to obtain ROS low grade fever last night, 99 today Review of Systems Constitutional Constitutional Remarks 12 point ROS completed, unreliable Vitals/Results Intake & Output 05/29/16 05/29/16 05/30/16 15:00 23:00 07:00 Intake Total 1000 ml 1004 ml 918 ml Output Total 550 ml 350 ml 300 ml Balance 450 ml 654 ml 618 ml Intake Oral 240 ml 120 ml IV Total 200 ml 764 ml 798 ml Other 800 ml Output Urine Total 100 ml 350 ml 300 ml Estimated Blood Loss 50 ml Other 400 ml # Bowel Movements 0 0 Vital Signs Vital Signs Date Time Temp Pulse Resp B/P Pulse Ox O2 Delivery O2 Flow Rate FiO2 05/30/16 08:00 99.0 81 19 176/73 93 05/30/16 07:30 93 05/30/16 07:29 Nasal Cannula 4.00 05/30/16 04:15 96.0 84 20 136/62 94 05/30/16 00:05 99.6 91 20 126/63 92 05/29/16 20:25 100.0 103 20 148/75 95 05/29/16 20:00 101 05/29/16 20:00 Nasal Cannula 4.00 05/29/16 18:36 90 Nasal Cannula 3.00 05/29/16 14:10 Nasal Cannula 2.00 05/29/16 14:08 98.9 98 17 150/73 93 05/29/16 13:16 93 18 136/77 93 Nasal Cannula 4 05/29/16 11:30 94 18 150/66 92 Nasal Cannula 4 05/29/16 11:15 96 18 153/89 91 Nasal Cannula 5 05/29/16 11:00 99 18 165/81 90 Nasal Cannula 5 05/29/16 10:50 97.8 95 16 155/87 90 Nasal Cannula 5 CBC/BMP: 05/30/16 0553 05/29/16 0754 Lab Results Laboratory Tests Test 05/29/16 05/30/16 11:13 05:53 25-Hydroxy Vitamin D Total 18.2 ng/ML Hemoglobin 9.8 GM/DL Hematocrit 28.8 % Physical Exam General General Appearance: Well Developed, Well Nourished, No Acute Distress, Comfortable Eyes Eye Exam: Pupils Equal, Pupils Reactive Ears & Nose Ears & Nose Exam: Nasal Mucosa [place] Extension Throat Throat Exam: Oral Mucosa [place] Extension & Moist Neck Neck Exam: Neck Supple, Trachea Midline Pulmonary Resp Exam: Clear Bilaterally, No Distress Cardiology CV Exam: Regular, Good Perfusion, Murmur Gastrointestinal/Abdomen GI Exam: Soft, Non-Tender, Bowel Sounds Present, Non-Distended Genitourinary Exam: Clear Urine Remarks yuki Musculoskeletal MS Remarks RIGHT HIP DRESSING D/I Integumentary Skin Exam: Warm, Dry Extremeties Extremities Exam: No Edema, Pedal Pulses Palpable Neurologic Neuro Exam: Alert, Awake, Speech Clear, Moving All Extremities, No Focal Deficits Psychiatric Psych Exam: Appropriate Responses VTE Prophylaxis VTE Prophylaxis Device: SCDs VTE Prophylaxis Meds: Lovenox Assessment/Plan Problem List: (1) Syncope (2) Hip fracture, right (3) Renal insufficiency (4) Aortic stenosis (5) Dementia (6) Status post intramedullary nail fixation of intertrochanteric hip fracture Assessment/Plan Status post intramedullary nail fixation of intertrochanteric hip fracture 05/29 Continue postop carepain management, physical therapy, Lovenox for DVT prophylaxis Echocardiogram results noted, EF 55-60% with aortic stenosis (severe) Continuous cardiac telemetry Home medications reviewed, initiated as indicated Resume Seroquel, Namenda, Aricept Blood pressure management Continue valsartan, amlodipine Neuro checks Labs reviewed, H&H stable Bowel regimen, add milk of mag when necessary Febrile overnight, encouraged to use ISS as needed ABEBA Truong today Repeat labs in the morning D/W RN D/W Dr. Pfeiffer D/W pt, family member This patient was seen by myself and Dr. Pfeiffer, this note is written on his behalf Problem Qualifiers (1) Syncope: (2) Hip fracture, right: Qualified Code: S72.001A - Hip fracture, right, closed, initial encounter (3) Aortic stenosis: Qualified Code: I35.0 - Aortic valve stenosis, unspecified etiology (4) Dementia: Savanah Carrillo May 30, 2016 10:23
[2016-05-30] MEDS ORDERED: MAGNESIUM HYDROXIDE SUSP 30 ML CUP PO PRN (10:30)
[2016-05-30] MEDS: QUEtiapine FUMARATE 25 MG TAB PO SCH ×2 (12:44→18:00)
[2016-05-30] MEDS: VALSARTAN 160 MG TAB PO SCH (12:45)
--- NOTE | 2016-05-30 15:24 | RADRPT ---
EXAM DATE/TIME: 05/30/2016 14:04 [facility] COMPARISON: No previous studies available for comparison. INDICATIONS : Syncope. MEDICAL HISTORY : Hypercholesterolemia. Hypertension. Chronic obstructive pulmonary disease. Dementia. SURGICAL HISTORY : Right hip surgery. ENCOUNTER: Initial ACUITY: 1 day PAIN SCORE: 0/10 LOCATION: Bilateral neck PEAK SYSTOLIC VELOCITIES (cm/sec): ICA/CCA RATIO: Right: 1.2 Left: 1.4 ICA: Right: 112 Left: 108 CCA: Right: 93 Left: 77 ECA: Right: 98 Left: 144 VERTEBRAL: Right: 47 antegrade Left: 58 antegrade Elevated flow velocities and ICA/CCA ratios have been found to correlate with increased degrees of vessel stenosis, calculated as percentage of diameter relative to a normal segment of distal ICA/CCA FINDINGS: RIGHT CAROTID: There is calcified atherosclerotic plaquing at the bifurcation. The waveforms are within normal limit s. LEFT CAROTID: There is calcified atherosclerotic plaquing of the bifurcation. The waveforms are within normal limit s. VERTEBRAL ARTERIES: Antegrade flow is seen in both vertebral arteries. MISCELLANEOUS: None. CONCLUSION: 1. There is calcified atherosclerotic plaquing at the carotid bifurcations. No hemodynamically signif icant stenosis is evident by velocity indices. Ashish Harrell MD on May 30, 2016 at 15:22 Board Certified Radiologist. This report was verified electronically.
[2016-05-30] MEDS: SODIUM CHLOR 0.9% 1000 ML INJ 1,000 ML IV SCH (18:22)
[2016-05-30] MEDS: MEMANTINE HCL 10 MG TAB PO SCH (21:36)
[2016-05-30] MEDS: DONEPEZIL HCL 5 MG TAB PO SCH (21:36)
[2016-05-30] MEDS: ATORVASTATIN 20 MG TAB PO SCH (21:36)
[2016-05-31] VITALS (8 sets, daily range): BP systolic 112–142; BP diastolic 57–64; PULSE 86–101; RESP 16–20; TEMP 95.5–99.5; O2SAT 90–97
[2016-05-31] MEDS: SODIUM CHLOR 0.9% 1000 ML INJ 1,000 ML IV SCH (04:33)
--- NOTE | 2016-05-31 06:49 | MB ---
cc: BHAVIK KUMAR DO DATE OF CONSULTATION: May 30, 2016 REASON FOR CONSULTATION Aortic stenosis. HISTORY OF PRESENT ILLNESS Triston Curran is a pleasantly demented 89-year-old male who presented to [place] emergency room on May 28, 2016, due to an apparent fall. The patient has known dementia and is unable to provide history. History is taken from the chart. He does not remember anything about this fall. He lives at any inpatient block unit secondary to his Alzheimer's dementia. The patient was found on the ground and when they attempted to get him off the ground he grabbed his right hip and complained of acute pain. When he was found to does not appear that he had lost consciousness. He was brought to the emergency room at [facility] and x-rays revealed a left hip intertrochanteric fracture. He was seen by Dr. Tilley and has undergone a right hip arthroplasty. An echocardiogram was done which was read as an ejection fraction of 55-60% and severe aortic stenosis with a valve area of 1.2. An a mean gradient of 46. I was consulted as the patient appears to have severe aortic stenosis and a question of a syncopal episode. PAST MEDICAL HISTORY 1. Alzheimer dimension 2. COPD 3. Hyperlipidemia 4. Hypertension 5. Aortic stenosis. PAST SURGICAL HISTORY Right hip arthroplasty (May 29, 2016). ALLERGIES NO KNOWN DRUG ALLERGIES. MEDICATIONS 1. Valsartan 320 mg daily 2. Florastor 250 mg b.i.d. 3. Seroquel 25 mg t.i.d. 4. Ativan 0.5 mg daily as needed for anxiety. 5. Namenda 10 mg b.i.d. 6. Norvasc 5 mg daily 7. Lipitor 20 mg every night. 8. Aricept 5 mg every night. SOCIAL HISTORY The patient currently lives in a dementia unit. He does not smoke, drink or use any drugs. FAMILY HISTORY Not available. REVIEW OF SYSTEMS 14 systems were attempted to be reviewed but the patient is an extremely poor historian. PHYSICAL EXAMINATION VITAL SIGNS: Temperature 99.6, heart rate 82, blood pressure 140/72, respirations 15, pulse ox 93% on 4 liters. IN GENERAL: The patient is pleasantly demented alert and awake. HEAD, EYES, EARS, NOSE, AND THROAT: Extraocular muscles intact. Mucous membranes moist. NECK: Supple. No JVD at 45 degrees. No carotid bruits heard bilaterally. Carotid upstroke is brisk in nature. HEART: Heart is regular rate and rhythm. Positive first and second heart sounds with a 3/6 crescendo-decrescendo murmur to the right sternal border. LUNGS: Lungs are clear to auscultation bilaterally. No wheezes, rales or rhonchi. ABDOMEN: Soft, nontender, nondistended. No organomegaly noted. EXTREMITIES: The extremities showed no clubbing, cyanosis or edema. NEUROLOGIC: Neurologically, no focal deficits. SKIN: Warm, dry and intact. Osteopathically, no kyphoscoliosis, lordosis or paraspinal tender points. LABORATORY FINDINGS Hemoglobin 9.8, hematocrit 28.80, potassium 4.2, BUN 25, creatinine 1.4, troponin less than 0.02. Electrocardiogram (May 28, 2016 at 12:34) sinus rhythm, first degree AV block. IMPRESSION 1. Recent fall breaking his right hip 2. Intramedullary nail fixation of intratrochanteric hip fracture (May 29, 2016) 3. Alzheimer's dementia. 4. Aortic stenosis, read as severe on echocardiogram. (May 29, 2016) with an aortic valve area of 1.2, mean gradient 46. 5. Hyperlipidemia. 6. Hypertension. 7. Chronic obstructive pulmonary disease. RECOMMENDATIONS 1. Triston Curran seems to be doing well postoperatively from his right hip arthroplasty. 2. As far as his echocardiogram goes he may have moderate to severe aortic stenosis. It is difficult to ascertain if he is truly symptomatic from this. 3. I will discuss with the family but most likely due to his age, comorbidities, including his dementia we will most likely attempt to treat this medically. 4. Further recommendations will be made after discussing with the family. Thank you for allowing me to see Triston curran if any questions please do not hesitate to call. Bhavik Kumar DO DANIELP/ /10:57 PM /6:36 AM
[2016-05-31 07:35] LABS: HEMATOCRIT 26.5 % (39.0-51.0); MEAN CELL VOLUME 96.7 FL (80.0-100.0); MEAN CORPUSCULAR HEMOGLOBIN 33.2 PG (27.0-34.0); MEAN CORPUSCULAR HGB CONC 34.4 % (32.0-36.0); PLATELET COUNT 157 TH/MM3 (150-450); RED BLOOD COUNT 2.74 MIL/MM3 (4.50-5.90); RED CELL DISTRIBUTION WIDTH 13.6 % (11.6-17.2); REVIEW FLAG FINAL
[2016-05-31 07:53] LABS: BICARBONATE 22.9 MEQ/L (21.0-32.0)
[2016-05-31 07:55] LABS: POTASSIUM 4.7 MEQ/L (3.5-5.1)
--- NOTE | 2016-05-31 08:09 | PD.ORT.PN ---
Subjective Post Op Day #: 2 Subjective Remarks doing ok Objective Vitals Vital Signs Date Time Temp Pulse Resp B/P Pulse Ox O2 Delivery O2 Flow Rate FiO2 05/31/16 04:01 97.2 89 20 120/57 90 05/31/16 00:00 99.1 95 16 117/63 91 05/30/16 20:00 110 05/30/16 20:00 100.0 114 20 130/62 88 05/30/16 20:00 Nasal Cannula 6.00 Humidified 05/30/16 19:08 93 Nasal Cannula 4.00 05/30/16 16:00 99.6 82 18 140/72 93 05/30/16 13:35 83 Nasal Cannula 4.00 05/30/16 12:00 99.5 99 18 127/58 93 I/O 05/30/16 05/30/16 05/30/16 05/31/16 05/31/16 05/31/16 07:00 15:00 23:00 07:00 15:00 23:00 Intake Total 918 ml 480 ml 907 ml 758 ml Output Total 300 ml 325 ml Balance 618 ml 155 ml 907 ml 758 ml Intake Oral 120 ml 480 ml 240 ml 120 ml IV Total 798 ml 667 ml 638 ml Output Urine Total 300 ml 325 ml # Voids 1 1 # Bowel Movements 0 Result Diagram: 05/31/16 0701 05/31/16 0701 Imaging Last [address] 05/28/16 1221 Signed Impressions: Service Date/Time: Saturday, May 28, 2016 13:59 - CONCLUSION: No acute intracranial disease. Cerebral atrophy. Sander Galindo MD Chest X-Ray 05/28/16 1221 Signed Impressions: Service Date/Time: Saturday, May 28, 2016 13:06 - CONCLUSION: No acute disease. Stan Arriaga MD Objective Remarks Bilateral upper extremities: No pain with range of motion of shoulder elbow or wrist. Intact sensation distally Left lower extremity: Full range of motion neurovascular intact Right lower extremity: Clean dressing on right hip. Distally intact sensation good capillary refills Assessment & Plan Ortho Post Op Day #: 2 Problem List: Assessment and Plan Right intertrochanteric femur fracture--postop day #2 status post IMN Weight-bear as tolerated Lovenox/Xarelto SNF on Thursday if medically cleared f/up dr. bennett 2 weeks Hal Wallace May 31, 2016 08:09
[2016-05-31] MEDS: ENOXAPARIN SODIUM 30 MG/0.3 ML SYRINGE SQ SCH (08:41)
[2016-05-31] MEDS: VALSARTAN 160 MG TAB PO SCH (08:41)
[2016-05-31] MEDS: ACETAMINOPHEN/HYDROcodone 325 MG/5 MG TAB PO PRN ×2 (08:42→14:02)
[2016-05-31] MEDS: amLODIPine BESYLATE 5 MG TAB PO SCH (08:43)
[2016-05-31] MEDS: MEMANTINE HCL 10 MG TAB PO SCH ×2 (08:43→20:53)
[2016-05-31] MEDS: CHOLECALCIFEROL (VIT D3) 5000 UNIT CAP PO SCH (08:43)
[2016-05-31] MEDS: QUEtiapine FUMARATE 25 MG TAB PO SCH ×3 (08:43→17:54)
[2016-05-31] MEDS: CALCIUM/VITAMIN D 250 MG/125 U TAB PO SCH ×3 (08:43→17:54)
[2016-05-31] MEDS: SODIUM CHLORIDE 0.9% FLUSH 5 ML FLUSH IVF SCH ×2 (09:00→20:53)
--- NOTE | 2016-05-31 09:47 | HHI.PR ---
Subjective Subjective Remarks awake, oriented x 1-2 pleasant fever last night 100.1 poor cough effort somnolent today appetite fair no bm yet voiding okay son at [facility], updated Review of Systems Constitutional Constitutional Remarks 12 point ROS completed, unreliable Vitals/Results Intake & Output 05/30/16 05/30/16 05/31/16 15:00 23:00 07:00 Intake Total 480 ml 907 ml 758 ml Output Total 325 ml Balance 155 ml 907 ml 758 ml Intake Oral 480 ml 240 ml 120 ml IV Total 667 ml 638 ml Output Urine Total 325 ml # Voids 1 1 Vital Signs Vital Signs Date Time Temp Pulse Resp B/P Pulse Ox O2 Delivery O2 Flow Rate FiO2 05/31/16 07:51 99.5 91 18 142/64 90 05/31/16 04:01 97.2 89 20 120/57 90 05/31/16 00:00 99.1 95 16 117/63 91 05/30/16 20:00 110 05/30/16 20:00 100.0 114 20 130/62 88 05/30/16 20:00 Nasal Cannula 6.00 Humidified 05/30/16 19:08 93 Nasal Cannula 4.00 05/30/16 16:00 99.6 82 18 140/72 93 05/30/16 13:35 83 Nasal Cannula 4.00 05/30/16 12:00 99.5 99 18 127/58 93 CBC/BMP: 05/31/16 0701 05/31/16 0701 Lab Results Laboratory Tests Test 05/31/16 07:01 White Blood Count 10.0 TH/MM3 Red Blood Count 2.74 MIL/MM3 Hemoglobin 9.1 GM/DL Hematocrit 26.5 % Mean Corpuscular Volume 96.7 FL Mean Corpuscular Hemoglobin 33.2 PG Mean Corpuscular Hemoglobin 34.4 % Concent Red Cell Distribution Width 13.6 % Platelet Count 157 TH/MM3 Mean Platelet Volume 8.3 FL Sodium Level 138 MEQ/L Potassium Level 4.7 MEQ/L Chloride Level 109 MEQ/L Carbon Dioxide Level 22.9 MEQ/L Anion Gap 6 MEQ/L Blood Urea Nitrogen 33 MG/DL Creatinine 1.63 MG/DL Estimat Glomerular Filtration 40 ML/MIN Rate Random Glucose 89 MG/DL Calcium Level 7.9 MG/DL Physical Exam General General Appearance: Well Developed, Well Nourished, No Acute Distress, Comfortable Eyes Eye Exam: Pupils Equal, Pupils Reactive Ears & Nose Ears & Nose Exam: Nasal Mucosa [place] Throat Throat Exam: Oral Mucosa [place] & Moist Neck Neck Exam: Neck Supple, Trachea Midline Pulmonary Resp Exam: No Distress, Decreased Bases Cardiology CV Exam: Regular, Good Perfusion, Murmur Gastrointestinal/Abdomen GI Exam: Soft, Non-Tender, Bowel Sounds Present, Non-Distended Musculoskeletal MS Remarks RIGHT HIP DRESSING D/I Integumentary Skin Exam: Warm, Dry Extremeties Extremities Exam: No Edema, Pedal Pulses Palpable Neurologic Neuro Exam: Speech Clear, Moving All Extremities, No Focal Deficits Psychiatric Psych Exam: Appropriate Responses VTE Prophylaxis VTE Prophylaxis Device: SCDs VTE Prophylaxis Meds: Lovenox Assessment/Plan Problem List: (1) Syncope (2) Hip fracture, right (3) Renal insufficiency (4) Aortic stenosis (5) Dementia (6) Status post intramedullary nail fixation of intertrochanteric hip fracture Assessment/Plan Status post intramedullary nail fixation of intertrochanteric hip fracture 05/29 Continue postop carepain management, physical therapy, Lovenox for DVT prophylaxis syncope, work up done Echocardiogram results noted, EF 55-60% with aortic stenosis (severe) Continuous cardiac telemetry CUS results no stenosis appreciate cardiology input, pt. with multiple comorbidities, adv. age, not a candidate for surgery. Cont. with med management D/W son at [facility], he's agreeable. Continue with Seroquel, Namenda, Aricept Blood pressure management Continue valsartan, amlodipine Bowel regimen Febrile overnight and tachy CXR now Needs out of bed Enc. IS q 2 wa Labs reviewed, stable Hopefully to SNF tomorrow D/W RN D/W Dr. Pfeiffer D/W pt, son This patient was seen by myself and Dr. Pfeiffer, this note is written on his behalf Problem Qualifiers (1) Syncope: (2) Hip fracture, right: Qualified Code: S72.001A - Hip fracture, right, closed, initial encounter (3) Aortic stenosis: Qualified Code: I35.0 - Aortic valve stenosis, unspecified etiology (4) Dementia: Savanah Carrillo May 31, 2016 09:47
[2016-05-31] MEDS ORDERED: RESP: ALBUTEROL 2.5 MG/IPRATROPIUM 0.5 MG NEB (PRN) NEB (11:00)
--- NOTE | 2016-05-31 11:29 | RADRPT ---
EXAM DATE/TIME: 05/31/2016 10:58 [facility] COMPARISON: CHEST SINGLE AP, May 28, 2016, 13:06. INDICATIONS : Cough. MEDICAL HISTORY : Hypercholesterolemia. Hypertension. Chronic obstructive pulmonary disease. SURGICAL HISTORY : None. ENCOUNTER: Initial ACUITY: 1 day PAIN SCORE: Non-responsive. LOCATION: Bilateral chest FINDINGS: There are mild perihilar infiltrates. No large or confluent consolidation. No pleural effusion or pne umothorax. Heart size stable, within normal limits. CONCLUSION: Mild perihilar opacities have developed differential including fluid overload and atypical pneumonia/ pneumonitis. Arpit Frias MD on May 31, 2016 at 11:27 Board Certified Radiologist. This report was verified electronically.
--- NOTE | 2016-05-31 11:50 | PD.CARD.PN ---
Subjective Subjective Remarks Pleasantly demented, no symptoms at this time Objective Medications Current Medications Medications (Trade) Dose Ordered Sig/Patsy Route Start Time Stop Time Status Last Admin (Tylenol) 650 mg Q4H PRN PO 05/28/16 17:30 (Zofran Inj) 4 mg Q6H PRN IVP 05/28/16 17:30 (Narcan Inj) 0.4 mg UNSCH PRN IV 05/28/16 17:30 (Norvasc) 5 mg DAILY PO 05/28/16 18:00 05/31/16 08:43 (Lipitor) 20 mg HS PO 05/28/16 21:00 05/30/16 21:36 (Aricept) 5 mg HS PO 05/28/16 21:00 05/30/16 21:36 (Ativan) 0.5 mg DAILY PRN PO 05/28/16 18:00 (NS Flush) 2 ml UNSCH PRN IVF 05/29/16 10:00 (NS Flush) 2 ml BID IVF 05/29/16 21:00 05/30/16 21:36 (Lovenox Inj) 30 mg Q24H SQ 05/30/16 10:00 05/31/16 08:41 ([place] 5-325 Mg) 1 tab Q4H PRN PO 05/29/16 10:00 05/31/16 08:42 (Oscal-D 250-125) 250 mg TID PO 05/29/16 13:00 05/31/16 08:43 (Benadryl) 25 mg Q6H PRN PO 05/29/16 10:00 (Morphine Inj) 3 mg Q3H PRN IV PUSH 05/29/16 10:00 (Vitamin D3) 5,000 units DAILY PO 05/30/16 09:00 05/31/16 08:43 (Milk Of Magnesia Liq) 30 ml DAILY PRN PO 05/30/16 10:30 05/30/16 12:44 (Namenda) 10 mg BID PO 05/30/16 21:00 05/31/16 08:43 (SEROquel) 25 mg TID PO 05/30/16 13:00 05/31/16 08:43 (Diovan) 320 mg DAILY PO 05/30/16 11:00 05/31/16 08:41 Vital Signs / I&O Vital Signs Date Time Temp Pulse Resp B/P Pulse Ox O2 Delivery O2 Flow Rate FiO2 05/31/16 07:51 99.5 91 18 142/64 90 05/31/16 04:01 97.2 89 20 120/57 90 05/31/16 00:00 99.1 95 16 117/63 91 05/30/16 20:00 110 05/30/16 20:00 100.0 114 20 130/62 88 05/30/16 20:00 Nasal Cannula 6.00 Humidified 05/30/16 19:08 93 Nasal Cannula 4.00 05/30/16 16:00 99.6 82 18 140/72 93 05/30/16 13:35 83 Nasal Cannula 4.00 05/30/16 12:00 99.5 99 18 127/58 93 I/O 05/30/16 05/30/16 05/30/16 05/31/16 05/31/16 05/31/16 07:00 15:00 23:00 07:00 15:00 23:00 Intake Total 918 ml 480 ml 907 ml 758 ml Output Total 300 ml 325 ml Balance 618 ml 155 ml 907 ml 758 ml Intake Oral 120 ml 480 ml 240 ml 120 ml IV Total 798 ml 667 ml 638 ml Output Urine Total 300 ml 325 ml # Voids 1 1 # Bowel Movements 0 Physical Exam GENERAL: NAD, awake and alert SKIN: Warm and dry. HEAD: Atraumatic. Normocephalic. EYES: Pupils equal and round. No scleral icterus. No injection or drainage. ENT: No nasal bleeding or discharge. Mucous membranes pink and moist. NECK: Trachea midline. No JVD. CARDIOVASCULAR: Regular rate and rhythm. 3/6 crescendo-decrescendo to the RSB RESPIRATORY: No accessory muscle use. Clear to auscultation. Breath sounds equal bilaterally. GASTROINTESTINAL: Abdomen soft, non-tender, nondistended. Hepatic and splenic margins not palpable. MUSCULOSKELETAL: Extremities without clubbing, cyanosis, or edema. No obvious deformities. NEUROLOGICAL: Awake and alert. No obvious focal defects Laboratory Laboratory Tests Test 05/31/16 07:01 White Blood Count 10.0 TH/MM3 Red Blood Count 2.74 MIL/MM3 Hemoglobin 9.1 GM/DL Hematocrit 26.5 % Mean Corpuscular Volume 96.7 FL Mean Corpuscular Hemoglobin 33.2 PG Mean Corpuscular Hemoglobin 34.4 % Concent Red Cell Distribution Width 13.6 % Platelet Count 157 TH/MM3 Mean Platelet Volume 8.3 FL Sodium Level 138 MEQ/L Potassium Level 4.7 MEQ/L Chloride Level 109 MEQ/L Carbon Dioxide Level 22.9 MEQ/L Anion Gap 6 MEQ/L Blood Urea Nitrogen 33 MG/DL Creatinine 1.63 MG/DL Estimat Glomerular Filtration 40 ML/MIN Rate Random Glucose 89 MG/DL Calcium Level 7.9 MG/DL Assessment and Plan Problem List: (1) Status post intramedullary nail fixation of intertrochanteric hip fracture (2) Hip fracture, right (3) Dementia (4) Aortic stenosis Assessment and Plan 1) ?Syncopal episode, but patient unable to provide history, was found on the ground awake and alert... more likely a fall than syncope, but unable to determine... unsure if truly symptomatic (No current CHF/angina, doubt syncope) 2) Spoke to the patient's son about aortic stenosis and how we go about treatment, agrees that his father is not a great candidate for AVR or TAVR, will continue with current management 3) Will see PRN, call with questions Problem Qualifiers (1) Hip fracture, right: Qualified Code: S72.001A - Hip fracture, right, closed, initial encounter (2) Dementia: (3) Aortic stenosis: Qualified Code: I35.0 - Aortic valve stenosis, unspecified etiology Bhavik Mahmood DO May 31, 2016 11:50
[2016-05-31] MEDS: ATORVASTATIN 20 MG TAB PO SCH (20:53)
[2016-05-31] MEDS: DONEPEZIL HCL 5 MG TAB PO SCH (20:53)
[2016-06-01] VITALS (8 sets, daily range): BP systolic 106–136; BP diastolic 51–66; PULSE 93–103; RESP 16–20; TEMP 96–98.3; O2SAT 92–97
--- NOTE | 2016-06-01 08:11 | PD.ORT.PN ---
Subjective Post Op Day #: 4 Subjective Remarks doing ok. denies pain in hip. Objective Vitals Vital Signs Date Time Temp Pulse Resp B/P Pulse Ox O2 Delivery O2 Flow Rate FiO2 06/01/16 04:23 97.7 99 20 120/61 97 06/01/16 00:00 98.2 100 16 124/66 96 05/31/16 19:51 97.9 101 16 117/59 97 05/31/16 18:17 93 Nasal Cannula 6.00 05/31/16 16:00 95.5 94 18 112/57 95 05/31/16 11:34 98.1 86 18 113/58 93 I/O 05/31/16 05/31/16 05/31/16 06/01/16 06/01/16 06/01/16 07:00 15:00 23:00 07:00 15:00 23:00 Intake Total 758 ml 640 ml 240 ml 240 ml Balance 758 ml 640 ml 240 ml 240 ml Intake Oral 120 ml 640 ml 240 ml 240 ml IV Total 638 ml # Voids 1 3 1 3 # Bowel Movements 0 Result Diagram: 05/31/16 0701 05/31/16 0701 Imaging Last [address] 05/28/16 1221 Signed Impressions: Service Date/Time: Saturday, May 28, 2016 13:59 - CONCLUSION: No acute intracranial disease. Cerebral atrophy. Sander Galindo MD Chest X-Ray 05/28/16 1221 Signed Impressions: Service Date/Time: Saturday, May 28, 2016 13:06 - CONCLUSION: No acute disease. Stan Arriaga MD Objective Remarks Bilateral upper extremities: No pain with range of motion of shoulder elbow or wrist. Intact sensation distally Left lower extremity: Full range of motion neurovascular intact Right lower extremity: Clean dressing on right hip. Distally intact sensation good capillary refills. neg homans. Assessment & Plan Ortho Post Op Day #: 4 Problem List: Assessment and Plan Right intertrochanteric femur fracture--postop day #4 status post IMN Weight-bear as tolerated Lovenox/Xarelto SNF on Thursday if medically cleared f/up dr. bennett 2 weeks Hla Wallace Jun 01, 2016 08:10
[2016-06-01] MEDS: SODIUM CHLORIDE 0.9% FLUSH 5 ML FLUSH IVF SCH ×2 (09:00→20:54)
[2016-06-01] MEDS: QUEtiapine FUMARATE 25 MG TAB PO SCH ×3 (09:03→17:24)
[2016-06-01] MEDS: CHOLECALCIFEROL (VIT D3) 5000 UNIT CAP PO SCH (09:03)
[2016-06-01] MEDS: ENOXAPARIN SODIUM 30 MG/0.3 ML SYRINGE SQ SCH (09:03)
[2016-06-01] MEDS: CALCIUM/VITAMIN D 250 MG/125 U TAB PO SCH ×3 (09:04→17:24)
[2016-06-01] MEDS: MEMANTINE HCL 10 MG TAB PO SCH ×2 (09:04→20:54)
[2016-06-01] MEDS: amLODIPine BESYLATE 5 MG TAB PO SCH (09:04)
[2016-06-01] MEDS: ACETAMINOPHEN/HYDROcodone 325 MG/5 MG TAB PO PRN ×2 (09:04→15:38)
[2016-06-01] MEDS: VALSARTAN 160 MG TAB PO SCH (09:04)
--- NOTE | 2016-06-01 11:59 | HHI.PR ---
Subjective Subjective Remarks No acute pain No shortness of breath Cough mild at random Up out of bed Alert Appetite good (Sabina Woodard) Review of Systems Constitutional Constitutional: Weakness (generalized, postop day 4 improving) (Sabina Woodard) Pulmonary Respiratory: Coughing (random mild) (Sabina Woodard) Musculoskeletal MS: Weakness (status post hip fracture) (Sabina Woodard) Neurologic Neurologic Remarks No episodes of syncope (Sabina Woodard) Psychiatric Psychiatric: Normal Mood (Sabina Woodard) Vitals/Results Intake & Output 05/31/16 05/31/16 06/01/16 15:00 23:00 07:00 Intake Total 640 ml 240 ml 240 ml Balance 640 ml 240 ml 240 ml Intake Oral 640 ml 240 ml 240 ml # Voids 3 1 3 # Bowel Movements 0 Vital Signs Vital Signs Date Time Temp Pulse Resp B/P Pulse Ox O2 Delivery O2 Flow Rate FiO2 06/01/16 07:46 98.3 96 19 136/66 95 06/01/16 04:23 97.7 99 20 120/61 97 06/01/16 00:00 98.2 100 16 124/66 96 05/31/16 19:51 97.9 101 16 117/59 97 05/31/16 18:17 93 Nasal Cannula 6.00 05/31/16 16:00 95.5 94 18 112/57 95 (Sabina Woodard) CBC/BMP: 05/31/16 0701 05/31/16 0701 Imaging Remarks Last Impressions Chest X-Ray 05/31/16 0000 Signed Impressions: Service Date/Time: Tuesday, May 31, 2016 10:58 - CONCLUSION: Mild perihilar opacities have developed differential including fluid overload and atypical pneumonia/pneumonitis. Arpit Frias MD Carotid Artery Ultrasound 05/30/16 0000 Signed Impressions: Service Date/Time: Monday, May 30, 2016 14:04 - CONCLUSION: 1. There is calcified atherosclerotic plaquing at the carotid bifurcations. No hemodynamically significant stenosis is evident by velocity indices. Ashish Harrell MD Hip X-Ray 05/29/16 0000 Signed Impressions: Service Date/Time: May 10:24 - CONCLUSION: Limited images as detailed above. Ever Stephen Jr., MD Head CT 05/28/16 1221 Signed Impressions: Service Date/Time: Saturday, May 28, 2016 13:59 - CONCLUSION: No acute intracranial disease. Cerebral atrophy. Sander Galindo MD Hip and Pelvis X-Ray 05/28/16 0000 Signed Impressions: Service Date/Time: Saturday, May 28, 2016 13:10 - CONCLUSION: Mildly displaced intertrochanteric fracture of right hip. Sander Galindo MD ([place],Sabina M. CLOTHING SALES ASSISTANT) Physical Exam General General Appearance: Well Developed, Well Nourished, No Acute Distress, Comfortable ([place],Sabina M. [employer]OTHING SALES ASSISTANT) Eyes Eye Exam: Pupils Equal, Pupils Reactive ([place],Sabina M. CLOTHING SALES ASSISTANT) Ears & Nose Ears & Nose Exam: Nasal Mucosa [place] ([place],Sabina M. CLOTHING SALES ASSISTANT) Throat Throat Exam: Oral Mucosa [place] & Moist ([place],Sabina M. CLOTHING SALES ASSISTANT) Neck Neck Exam: Neck Supple, Trachea Midline ([place],Sabina M. CLOTHING SALES ASSISTANT) Pulmonary Resp Exam: No Distress, Decreased Bases, Diminished Breath Sounds Resp Remarks Decreased breath sounds at bases, positive for upper airway congestion ([place], Sabina M. CLOTHING SALES ASSISTANT) Cardiology CV Exam: Regular, Good Perfusion, Murmur ([place],Sabina M. [employer]OTHING SALES ASSISTANT) Gastrointestinal/Abdomen GI Exam: Soft, Non-Tender, Bowel Sounds Present, Non-Distended ([place],Sabina M. [employer]OTHING SALES ASSISTANT) Musculoskeletal MS Exam: Normal Tone, Good Strength ([place],Sabina M. CLOTHING SALES ASSISTANT) Integumentary Skin Exam: Warm, Dry ([place],Sabina M. [employer]OTHING SALES ASSISTANT) Extremeties Extremities Exam: No Edema, Pedal Pulses Palpable ([place],Sabina M. [employer]OTHING SALES ASSISTANT) Neurologic Neuro Exam: Speech Clear, Moving All Extremities, No Focal Deficits ([place], Sabina M. CLOTHING SALES ASSISTANT) Psychiatric Psych Exam: Appropriate Responses ([place],Sabina M. [employer]OTHING SALES ASSISTANT) VTE Prophylaxis VTE Prophylaxis Device: SCDs VTE Prophylaxis Meds: Lovenox ([place],Sabina M. [employer]ING SALES ASSISTANT) Assessment/Plan Problem List: (1) Syncope (2) Hip fracture, right (3) Renal insufficiency (4) Aortic stenosis (5) Dementia (6) Status post intramedullary nail fixation of intertrochanteric hip fracture Assessment/Plan Status post intramedullary nail fixation of intertrochanteric hip fracture 05/29 Continue postop carepain management, physical therapy, Lovenox for DVT prophylaxis Status post surgical repair day 4 Hemoglobin stable at 9.1 leukopcytosis stable 10.0 syncope, work up done Echocardiogram results noted, EF 55-60% with aortic stenosis (severe) cardiac telemetry CUS results no stenosis appreciate cardiology input, pt. with multiple comorbidities, adv. age, not a candidate for surgery. Cont. with med management D/W son at [facility], he's agreeable. Continue with Seroquel, Namenda, Aricept Blood pressure management Continue valsartan, amlodipine Bowel regimen Febrile overnight and tachy CXR now Needs out of bed Enc. IS q 2 wa Labs reviewed, B UN 33, creatinine 1.63, monitor needs Possible discharge today, SNF Cough, with some upper airway congestion Dual nebs D/W RN D/W Dr. Pfeiffer, she seen on his behalf (Sabina Woodard) Assessment/Plan Patient seen and examined as above [id number] time spent with patient Labs and neurological data reviewed Medications reviewed Will start antibiotic for pneumonia Breathing treatments Plan of care discussed with family member at bedside Discussed with RN Discussed with CLOTHING SALES ASSISTANT about plan of care (Connie Pfeiffer MD) Problem Qualifiers (1) Syncope: (2) Hip fracture, right: Qualified Code: S72.001A - Hip fracture, right, closed, initial encounter (3) Aortic stenosis: Qualified Code: I35.0 - Aortic valve stenosis, unspecified etiology (4) Dementia: Sabina Woodard Jun 01, 2016 11:59 Connie Pfeiffer MD Jun 01, 2016 12:10
[2016-06-01] MEDS: AZITHROMYCIN INJ 500 MG in SODIUM CHLOR 0.9% 250 ML INJ 250 ML IV SCH (12:46)
[2016-06-01] MEDS: CEFEPIME INJ 1,000 MG in SODIUM CHLORIDE 0.9% INJ 100 ML IV SCH ×2 (12:46→20:53)
[2016-06-01] MEDS ORDERED: AZITHROMYCIN INJ 500 MG in SODIUM CHLOR 0.9% 250 ML INJ 250 ML IV SCH (13:00)
[2016-06-01] MEDS: RESP: ALBUTEROL 2.5 MG/IPRATROPIUM 0.5 MG NEB (SCH) NEB ×2 (17:15→20:43)
[2016-06-01] MEDS: DONEPEZIL HCL 5 MG TAB PO SCH (20:54)
[2016-06-01] MEDS: ATORVASTATIN 20 MG TAB PO SCH (20:54)
[2016-06-02] VITALS (13 sets, daily range): BP systolic 95–129; BP diastolic 50–69; PULSE 90–154; RESP 17–28; TEMP 97–98.7; O2SAT 70–94
[2016-06-02] MEDS: RESP: ALBUTEROL 2.5 MG/IPRATROPIUM 0.5 MG NEB (SCH) NEB ×5 (04:21→20:25)
[2016-06-02] MEDS: ACETAMINOPHEN/HYDROcodone 325 MG/5 MG TAB PO PRN ×4 (05:09→21:18)
[2016-06-02] MEDS: CEFEPIME INJ 1,000 MG in SODIUM CHLORIDE 0.9% INJ 100 ML IV SCH ×3 (05:09→21:18)
--- NOTE | 2016-06-02 06:28 | PD.ORT.PN ---
Subjective Subjective Remarks POD 4 s/p IMN right hip doing well. pain controlled. confused. Objective Vitals Vital Signs Date Time Temp Pulse Resp B/P Pulse Ox O2 Delivery O2 Flow Rate FiO2 06/02/16 04:36 97.8 91 21 116/50 90 06/02/16 00:52 98.3 96 20 129/66 93 06/01/16 22:00 95 Nasal Cannula 3.00 06/01/16 20:46 98.2 103 20 106/51 94 06/01/16 16:00 98.0 93 19 115/64 95 06/01/16 15:02 94 Nasal Cannula 4.00 06/01/16 11:28 96.0 94 19 120/60 92 06/01/16 11:20 92 4.00 06/01/16 07:46 98.3 96 19 136/66 95 I/O 06/01/16 06/01/16 06/01/16 06/02/16 06/02/16 06/02/16 07:00 15:00 23:00 07:00 15:00 23:00 Intake Total 240 ml Balance 240 ml Intake Oral 240 ml # Voids 3 1 2 # Bowel Movements 1 Result Diagram: 05/31/16 0701 05/31/16 0701 Imaging Last [address] 05/28/16 1221 Signed Impressions: Service Date/Time: Saturday, May 28, 2016 13:59 - CONCLUSION: No acute intracranial disease. Cerebral atrophy. Sander Galindo MD Chest X-Ray 05/28/16 1221 Signed Impressions: Service Date/Time: Saturday, May 28, 2016 13:06 - CONCLUSION: No acute disease. Stan Arriaga MD Objective Remarks Bilateral upper extremities: No pain with range of motion of shoulder elbow or wrist. Intact sensation distally Left lower extremity: Full range of motion neurovascular intact Right lower extremity: Clean dressing on right hip. Distally intact sensation good capillary refills. neg homans. Assessment & Plan Assessment and Plan Right intertrochanteric femur fracture--postop day #5 status post IMN Weight-bear as tolerated Lovenox/Xarelto SNF on Thursday if medically cleared f/up dr. bennett 2 weeks Nash Arndt Jun 02, 2016 06:28
[2016-06-02 07:15] LABS: HEMATOCRIT 24.6 % (39.0-51.0); MEAN CELL VOLUME 95.2 FL (80.0-100.0); MEAN CORPUSCULAR HEMOGLOBIN 33.5 PG (27.0-34.0); MEAN CORPUSCULAR HGB CONC 35.1 % (32.0-36.0); PLATELET COUNT 203 TH/MM3 (150-450); RED BLOOD COUNT 2.58 MIL/MM3 (4.50-5.90); RED CELL DISTRIBUTION WIDTH 13.1 % (11.6-17.2); REVIEW FLAG FINAL; WHITE BLOOD COUNT 7.2 TH/MM3 (4.0-11.0)
[2016-06-02 07:42] LABS: BICARBONATE 23.2 MEQ/L (21.0-32.0); POTASSIUM 4.5 MEQ/L (3.5-5.1)
[2016-06-02] MEDS: QUEtiapine FUMARATE 25 MG TAB PO SCH ×3 (09:00→18:00)
[2016-06-02] MEDS: VALSARTAN 160 MG TAB PO SCH (09:00)
[2016-06-02] MEDS: amLODIPine BESYLATE 5 MG TAB PO SCH (09:00)
[2016-06-02] MEDS ORDERED: RESP: ALBUTEROL 2.5 MG/IPRATROPIUM 0.5 MG NEB (PRN) NEB (10:00)
--- NOTE | 2016-06-02 10:07 | HHI.PR ---
Subjective Subjective Remarks No acute pain at rest Mild dyspnea Cough mild, occasional choking sensation on secretions Alert Appetite fair Son in room (Sabina Woodard) Review of Systems Constitutional Constitutional: Fatigue, Weakness (generalized, postop day 4 improving) Constitutional Remarks 10 point ROS done. Positives noted generalized weakness, fatigue, cough at random when he lightly drifts off to sleep, and with food especially towards the end of the meal per son. Wheezing, . Other systems essentially unremarkable (Sabina Woodard) Pulmonary Respiratory: Coughing (random mild), Shortness of Breath, Wheezing (Sabina Woodard) Musculoskeletal MS: Weakness (status post hip fracture) (Sabina Woodard) Neurologic Neurologic Remarks No episodes of syncope (Sabina Woodard) Psychiatric Psychiatric: Normal Mood Psychiatric Remarks Dementia (Sabina Woodard) Vitals/Results Intake & Output 06/01/16 06/01/16 06/02/16 15:00 23:00 07:00 # Voids 1 2 # Bowel Movements 1 Vital Signs Vital Signs Date Time Temp Pulse Resp B/P Pulse Ox O2 Delivery O2 Flow Rate FiO2 06/02/16 08:22 90 Nasal Cannula 4.00 06/02/16 08:00 98.5 90 17 95/58 90 06/02/16 07:55 90 Nasal Cannula 3.00 Humidified 06/02/16 04:36 97.8 91 21 116/50 90 06/02/16 00:52 98.3 96 20 129/66 93 06/01/16 22:00 95 Nasal Cannula 3.00 06/01/16 20:46 98.2 103 20 106/51 94 06/01/16 16:00 98.0 93 19 115/64 95 06/01/16 15:02 94 Nasal Cannula 4.00 06/01/16 11:28 96.0 94 19 120/60 92 06/01/16 11:20 92 4.00 (Sabina Woodard) CBC/BMP: 06/02/16 0612 06/02/16 0612 Lab Results Laboratory Tests Test 06/02/16 06:12 White Blood Count 7.2 TH/MM3 Red Blood Count 2.58 MIL/MM3 Hemoglobin 8.6 GM/DL Hematocrit 24.6 % Mean Corpuscular Volume 95.2 FL Mean Corpuscular Hemoglobin 33.5 PG Mean Corpuscular Hemoglobin 35.1 % Concent Red Cell Distribution Width 13.1 % Platelet Count 203 TH/MM3 Mean Platelet Volume 8.2 FL Sodium Level 136 MEQ/L Potassium Level 4.5 MEQ/L Chloride Level 105 MEQ/L Carbon Dioxide Level 23.2 MEQ/L Anion Gap 8 MEQ/L Blood Urea Nitrogen 36 MG/DL Creatinine 1.63 MG/DL Estimat Glomerular Filtration 40 ML/MIN Rate Random Glucose 93 MG/DL Calcium Level 8.4 MG/DL Current Medications Active Medications Azithromycin 500 mg/Sodium Chloride 250 ml @ 250 mls/hr Q24H IV; Start at 13:00; Stop 06/01/16 at 13:00; Status DC Azithromycin/ Sodium Chloride (Zithromax Inj/ NS 250 ml Inj) 250 ml @ 250 mls/ hr Q24H IV Last administered on 06/01/16 12:46; Admin Dose 250 MLS/HR; Start at 14:00 Cefepime HCl 1000 mg/Sodium Chloride 100 ml @ 200 mls/hr Q8H IV Last administered on 06/02/16 05:09; Admin Dose 200 MLS/HR; Start 06/01/16 at 13:00 (Sabina Woodard) Physical Exam General General Appearance: Well Developed, Well Nourished, No Acute Distress, Comfortable, Pale (Sabina Woodard) Eyes Eye Exam: Pupils Equal, Pupils Reactive (Sabina Woodard) Ears & Nose Ears & Nose Exam: Nasal Mucosa [place] (Sabina WoodardP) Throat Throat Exam: Oral Mucosa [place] & Moist Throat Remarks Dry mucous membranes (Sabina Woodard) Neck Neck Exam: Neck Supple, Trachea Midline (Sabina WoodardP) Pulmonary Resp Exam: No Distress, Rhonchi, Decreased Bases, Diminished Breath Sounds, Poor Inspiratory Effort Resp Remarks Decreased breath sounds at bases, positive for upper airway congestion, mild expiratory wheezing (Sabina Woodard) Cardiology CV Exam: Regular, Good Perfusion, Murmur ([place],Sabina M. BANANA HANDLER) Gastrointestinal/Abdomen GI Exam: Soft, Non-Tender, Bowel Sounds Present, Non-Distended (Sabina Woodard BANANA HANDLER) Musculoskeletal MS Exam: Normal Tone, Good Strength MS Remarks Status post hip fracture (Sabina Woodard BANANA HANDLER) Integumentary Skin Exam: Warm, Dry (Sabina Woodard. BANANA HANDLER) Extremeties Extremities Exam: No Edema, Pedal Pulses Palpable (Sabina Woodard. BANANA HANDLER) Neurologic Neuro Exam: Speech Clear (occasional nod or one-word spoken), Moving All Extremities, No Focal Deficits (Sabina Woodard. BANANA HANDLER) Psychiatric Psych Exam: Appropriate Responses (Sabina WoodardP) VTE Prophylaxis VTE Prophylaxis Device: SCDs VTE Prophylaxis Meds: Lovenox (Sabina Woodard. BANANA HANDLER) Assessment/Plan Problem List: (1) Syncope (2) Hip fracture, right (3) Renal insufficiency (4) Aortic stenosis (5) Dementia (6) Status post intramedullary nail fixation of intertrochanteric hip fracture Assessment/Plan (1) Syncope (2) Hip fracture, right (3) Renal insufficiency (4) Aortic stenosis (5) Dementia (6) Status post intramedullary nail fixation of intertrochanteric hip fracture 7. pna, possible aspiration 8. acute kidney injury, possible chronic Assessment/Plan Status post intramedullary nail fixation of intertrochanteric hip fracture 05/29 Continue postop carepain management, physical therapy, Lovenox for DVT prophylaxis Status post surgical repair day 4 Hemoglobin stable at 8.6 leukopcytosis stable 7.2 syncope, work up done Echocardiogram results noted, EF 55-60% with aortic stenosis (severe) cardiac telemetry CUS results no stenosis appreciate cardiology input, pt. with multiple comorbidities, adv. age, not a candidate for surgery. Cont. with med management D/W son at [facility], he's agreeable. Continue with Seroquel, Namenda, Aricept Blood pressure management Continue valsartan, amlodipine Bowel regimen Febrile overnight and tachy CXR now Needs out of bed Enc. IS q 2 wa Labs reviewed, monitor needs, hemoglobin stable ,no leukocytosis, acute kidney injury which is possible chronic, no acute changes Cough, with some upper airway congestion, increased wheezing today, mild low volume dyspnea at rest Dual nebs increased to every 4 [id number], and every 2 when necessary for shortness of breath wheezing. New onset pneumonia. IV antibiotics started on 06-01. Son present in room. Occasional cough, and clearing throat when lightly dozing. Questionable whether patient is controlling secretions or not. Son also states patient does begin to cough towards the mid to end of his meal and with liquid. Speech eval and treat ordered. Will eval possible aspiration pneumonia. D/W RN D/W Dr. Pfeiffer, she seen on his behalf (Sabina Woodard) (Sabina Woodard) Assessment/Plan Patient seen and examined as above Labs reviewed X-ray report reviewed Discussed with patient's son at bedside Plan of care discussed with RN (Connie Pfeiffer MD) Problem Qualifiers (1) Syncope: (2) Hip fracture, right: Qualified Code: S72.001A - Hip fracture, right, closed, initial encounter (3) Aortic stenosis: Qualified Code: I35.0 - Aortic valve stenosis, unspecified etiology (4) Dementia: Sabina Woodard Jun 02, 2016 10:07 Connie Pfeiffer MD Jun 02, 2016 16:03 (1) Syncope: (2) Hip fracture, right: Qualified Code: S72.001A - Hip fracture, right, closed, initial encounter (3) Aortic stenosis: Qualified Code: I35.0 - Aortic valve stenosis, unspecified etiology (4) Dementia: Sabina Woodard Jun 02, 2016 10:07
[2016-06-02] MEDS: CHOLECALCIFEROL (VIT D3) 5000 UNIT CAP PO SCH (10:53)
[2016-06-02] MEDS: CALCIUM/VITAMIN D 250 MG/125 U TAB PO SCH ×3 (10:53→18:00)
[2016-06-02] MEDS: LORazepam 0.5 MG TAB PO PRN (10:53)
[2016-06-02] MEDS: MEMANTINE HCL 10 MG TAB PO SCH ×3 (10:54→21:18)
[2016-06-02] MEDS: ENOXAPARIN SODIUM 30 MG/0.3 ML SYRINGE SQ SCH (10:55)
[2016-06-02] MEDS: SODIUM CHLORIDE 0.9% FLUSH 5 ML FLUSH IVF SCH ×2 (11:00→21:19)
[2016-06-02] MEDS: AZITHROMYCIN INJ 500 MG in SODIUM CHLOR 0.9% 250 ML INJ 250 ML IV SCH (16:01)
[2016-06-02] MEDS: ATORVASTATIN 20 MG TAB PO SCH ×2 (21:00→21:18)
[2016-06-02] MEDS: DONEPEZIL HCL 5 MG TAB PO SCH ×2 (21:00→21:18)
--- NOTE | 2016-06-02 21:53 | HHI.FPPN ---
Addendum to progress note ADDENDUM Reason for addendum: Additonal documentation Additional information HALICAT NOTE Subjective: Halicat page heard overhead by FP team- not paged through the [facility]. When team arrived at [facility], charge nurse and floor nurse present, working to stabilize pt, appreciate their sign-out. Epifaniodanni called for respiratory distress. Pt 89y/o male, POD4 R hip repair, with COPD, PNA, aortic stenosis, and dementia. Told nursing staff "couldn't breathe", now AMS/combative, hypoxic to 70%, hypotensive to 100/70, tachycardic to 130-140. Pt does have poor respiratory function and was trending at 78% O2 earlier today on 5L NC- was attributed to known PNA- on abx. Pt was not combative at that time. DVT ppx with Lovenox 30mg daily. Pt appears confused. Does not respond to direct questioning. Objective: GEN: Obese male in moderate respiratory distress HEENT: PERRL. Gross EOMI. Tracking around the room. Yellow secretions from nares. CV: Distant heart sounds. Tachycardic to 140. No murmur. RESP: lung sounds equal and bilateral. Coarse expiratory sounds bilaterally per anterior lung exam. Increased work of breathing with heaving chest. Non- rebreather in place. no wheezing. GI: Abd soft, non-tender, non-distended. MSK: In four point restraints. Combative. Growling to nasotracheal suction. NEURO: No facial droop. Moves all four limbs against restraints. PSYCH: Appears confused/disoriented. Tracks people around room. Groans/grunted , but not clear verbalization. Assessment/Plan 89 year-old male, POD4 fixation of intertrochanteric fracture R femur , with aortic stenosis, COPD, pneumonia, and dementia, with Epifaniodanni called for respiratory distress. Hypoxic to 70% O2, tachycardia 130-140, b/p 100/70, diaphoretic, combative. After increased oxygen support, from 4L NC to non re-breather, saturations improved 70 -> 90% O2. Remained tachycardic at 130. CXR 05/31 showed bibasilar opacities. Carotid artery U/S showed plaques with no significant stenosis. Electrolytes this AM wnl. No leukocytosis. Currently on cefepime, azithromycin for presumed PNA. Blood glucose 200. Full code. Differential: COPD exacerbation vs persistent PNA with secretions vs sepsis vs PE vs arrhythmia vs delirium vs metabolic abnormality Plan -[place] order from floor [place] [facility] [place]Suction performed at bedside- pt w significant wet cough and nasal secretions -BIPAP order placed -Ordered CBC no diff, BMP, D-dimer, ABG, EKG, CT pulmonary angiogram, Trop, CKMB -Attending was contacted, primary team to follow-up labs and management -Residents left floor after pt left floor during transfer to [facility] [place] SDW: Tamia Chandra MD R1 Jun 02, 2016 21:53
[2016-06-02] MEDS ORDERED: CHLORHEXIDINE GLUCONATE 2 % 1 PACK (2 CLOTHS)(extra cloths) TOP PRN (22:30)
[2016-06-02 22:44] LABS: HEMATOCRIT 25.3 % (39.0-51.0); MEAN CELL VOLUME 97.1 FL (80.0-100.0); MEAN CORPUSCULAR HEMOGLOBIN 32.7 PG (27.0-34.0); MEAN CORPUSCULAR HGB CONC 33.7 % (32.0-36.0); PLATELET COUNT 220 TH/MM3 (150-450); RED CELL DISTRIBUTION WIDTH 13.6 % (11.6-17.2); REVIEW FLAG FINAL; WHITE BLOOD COUNT 9.7 TH/MM3 (4.0-11.0)
[2016-06-02 23:00] LABS: BLOOD GAS BASE EXCESS -5.1 mmol/L (-2-2); BLOOD GAS CARBOXYHEMOGLOBIN 1.6 % (0-4); BLOOD GAS HCO3 19 mmol/L (22-26); BLOOD GAS METHEMOGLOBIN 1.3 % (0-2); BLOOD GAS O2 HGB SATURATION 93 % (90-100); BLOOD GAS OXYGEN CONTENT 10.8 Vol % (12.0-20.0); BLOOD GAS PCO2 35 mmHg (38-42); BLOOD GAS PO2 90 mmHg (61-120); BLOOD GAS TOTAL HGB 8.2 G/DL (12.0-16.0); TEMP CORR TO 98.6
[2016-06-02 23:01] LABS: CRITICAL VALUE NO; DRAW SITE RT BRACHIAL; FIO2 70 %; NUMBER OF ARTERIAL PUNCTURES 1; STAT YES; ULNAR PULSE PRESENT
[2016-06-02 23:03] LABS: ANION GAP 10 MEQ/L (5-15); BICARBONATE 23.1 MEQ/L (21.0-32.0); BLOOD UREA NITROGEN 39 MG/DL (7-18); CHLORIDE 103 MEQ/L (98-107); GLOMERULAR FILTRATION RATE 35 ML/MIN (>89); SODIUM (NA) 136 MEQ/L (136-145)
[2016-06-02 23:06] LABS: CREATINE KINASE 235 U/L (39-308)
[2016-06-02 23:24] LABS: CKMB 7.9 NG/ML (0.5-3.6)
[2016-06-02] MEDS: SODIUM CHLOR 0.9% 1000 ML INJ 1,000 ML IV SCH (23:45)
[2016-06-02] MEDS ORDERED: SODIUM CHLOR 0.9% 250 ML INJ 250 ML IV SCH (23:45)
[2016-06-03] VITALS (21 sets, daily range): BP systolic 104–138; BP diastolic 58–81; PULSE 98–137; RESP 20–27; TEMP 97.6–99; O2SAT 88–99
[2016-06-03] MEDS: RESP: ALBUTEROL 2.5 MG/IPRATROPIUM 0.5 MG NEB (SCH) NEB ×7 (00:16→23:09)
[2016-06-03] MEDS ORDERED: IODIXANOL 320 MG/ML 10 ML VIAL (for RAD SPEC) IV ONE (01:42)
--- NOTE | 2016-06-03 02:01 | RADRPT ---
EXAM DATE/TIME: 06/03/2016 01:23 [facility] COMPARISON: No previous studies available for comparison. INDICATIONS : Respiratory distress IV CONTRAST: 50 cc Visipaque (iodixanol) IV RADIATION DOSE: 13.54 CTDIvol (mGy) MEDICAL HISTORY : Chronic obstructive pulmonary disease. Hypertension. SURGICAL HISTORY : None. ENCOUNTER: Initial ACUITY: 1 day PAIN SCALE: 0/10 LOCATION: Bilateral chest TECHNIQUE: Volumetric scanning of the chest was performed using a pulmonary embolism protocol MIP images were re constructed. Using automated exposure control and adjustment of the mA and/or kV according to patien t size, radiation dose was kept as low as reasonably achievable to obtain optimal diagnostic quality images. FINDINGS: PULMONARY ARTERIES: No filling defects are seen in the pulmonary arteries through the segmental level. LUNGS: There are areas of consolidation or atelectasis of the posterior lower lobes bilaterally. PLEURAE: There are mild bilateral pleural effusions being greater on the left. MEDIASTINUM: There is good visualization of the great vessels of the middle mediastinum. No evidence of mediastin al or hilar adenopathy/mass. Coronary artery calcifications are present.MUSCULOSKELETAL: Within normal limits for patient age. MISCELLANEOUS: The visualized upper abdominal organs demonstrate no acute abnormality. CONCLUSION: 1. No pulmonary embolus. 2. Mild bilateral pleural effusions being greater on the left. 3. Bibasilar areas of consolidation or atelectasis. Arpit Chappell MD on June 03, 2016 at 1:54 Board Certified Radiologist. This report was verified electronically.
[2016-06-03] MEDS: methylPREDNISolone SOD SUCC 40 MG/1 ML VIAL IV PUSH SCH ×4 (02:24→18:02)
[2016-06-03] MEDS: ATORVASTATIN 20 MG TAB PO SCH ×2 (02:33→21:00)
[2016-06-03] MEDS: MEMANTINE HCL 10 MG TAB PO SCH ×3 (02:34→21:00)
[2016-06-03] MEDS: DONEPEZIL HCL 5 MG TAB PO SCH ×2 (02:34→21:00)
[2016-06-03] MEDS: CHLORHEXIDINE GLUCONATE 2 % 1 PACK (2 CLOTHS)(taper/protocol) TOP SCH (04:00)
[2016-06-03] MEDS: CEFEPIME INJ 1,000 MG in SODIUM CHLORIDE 0.9% INJ 100 ML IV SCH ×3 (04:35→19:55)
[2016-06-03] MEDS: SODIUM CHLORIDE 0.9% FLUSH 5 ML FLUSH IVF SCH ×2 (09:00→19:55)
[2016-06-03] MEDS: QUEtiapine FUMARATE 25 MG TAB PO SCH ×3 (09:00→18:00)
[2016-06-03] MEDS: CALCIUM/VITAMIN D 250 MG/125 U TAB PO SCH ×3 (09:32→18:00)
[2016-06-03] MEDS: amLODIPine BESYLATE 5 MG TAB PO SCH (09:32)
[2016-06-03] MEDS: VALSARTAN 160 MG TAB PO SCH (09:32)
[2016-06-03] MEDS: ENOXAPARIN SODIUM 30 MG/0.3 ML SYRINGE SQ SCH (09:32)
[2016-06-03] MEDS: CHOLECALCIFEROL (VIT D3) 5000 UNIT CAP PO SCH (09:32)
[2016-06-03] MEDS: MORPHINE SULFATE 4 MG/ML INJ IV PUSH PRN ×2 (11:39→19:57)
[2016-06-03] MEDS: SODIUM CHLOR 0.9% 1000 ML INJ 1,000 ML IV SCH (13:05)
[2016-06-03] MEDS ORDERED: LABETALOL HCL 100 MG/20 ML VIAL IV PRN (13:15)
[2016-06-03] MEDS ORDERED: hydrALAZINE HCL 20 MG/ML VIAL IV PRN (13:15)
[2016-06-03] MEDS: AZITHROMYCIN INJ 500 MG in SODIUM CHLOR 0.9% 250 ML INJ 250 ML IV SCH (14:00)
--- NOTE | 2016-06-03 14:45 | HHI.PR ---
Subjective Interval History Patient is on BiPAP Feeling better Not short of breath No chest pain Abdominal pain No nausea vomiting Confused but pleasant As per RN patient was agitated when tried to put in NG tube. Patient was transferred because of the respiratory failure to ICU. Review of system for 12 point system as unremarkable. Review of Systems Constitutional Constitutional: Fatigue, Weakness (generalized, postop day 4 improving) Musculoskeletal MS: Weakness (status post hip fracture) Psychiatric Psychiatric: Normal Mood Vitals/Results Intake & Output 06/02/16 06/02/16 06/03/16 15:00 23:00 07:00 Intake Total 600 ml 1013 ml Balance 600 ml 1013 ml Intake Oral 600 ml 0 ml IV Total 1013 ml # Voids 6 2 # Bowel Movements 4 Vital Signs Vital Signs Date Time Temp Pulse Resp B/P Pulse Ox O2 Delivery O2 Flow Rate FiO2 06/03/16 13:05 93 55 06/03/16 12:00 119 06/03/16 12:00 98.5 115 20 123/58 93 06/03/16 10:00 104 06/03/16 09:48 95 55 06/03/16 08:00 98.7 103 20 130/59 97 06/03/16 08:00 103 06/03/16 07:21 98 60 06/03/16 07:00 96 Bi-Pap 70 06/03/16 06:00 98 06/03/16 04:03 94 70 06/03/16 04:00 100 06/03/16 04:00 98.1 103 27 138/81 98 06/03/16 02:00 98 06/03/16 01:20 99 60 06/03/16 00:30 98 100 06/03/16 00:00 97.6 108 22 104/65 93 06/02/16 21:55 132 91 06/02/16 21:55 Non-Rebreather 06/02/16 21:45 129 28 89 06/02/16 21:45 Non-Rebreather 06/02/16 21:36 Non-Rebreather 06/02/16 21:36 136 28 80 06/02/16 21:35 141 28 98/69 70 06/02/16 21:35 Simple Mask 4.00 06/02/16 21:34 Nasal Cannula 4.00 Humidified 06/02/16 21:34 154 28 75 06/02/16 21:15 Nasal Cannula 4.00 06/02/16 20:25 93 Nasal Cannula 4.00 06/02/16 20:00 98.4 95 18 110/55 93 06/02/16 16:00 98.7 98 17 120/61 93 CBC/BMP: 06/02/16 2236 06/02/16 2236 Lab Results Laboratory Tests Test 06/02/16 06/02/16 06/02/16 06/03/16 22:36 22:40 22:44 03:39 White Blood Count 9.7 TH/MM3 Red Blood Count 2.60 MIL/MM3 Hemoglobin 8.5 GM/DL Hematocrit 25.3 % Mean Corpuscular Volume 97.1 FL Mean Corpuscular Hemoglobin 32.7 PG Mean Corpuscular Hemoglobin 33.7 % Concent Red Cell Distribution Width 13.6 % Platelet Count 220 TH/MM3 Mean Platelet Volume 7.5 FL D-Dimer Quantitative (PE/DVT) 9.33 MG/L FEU Sodium Level 136 MEQ/L Potassium Level 5.0 MEQ/L Chloride Level 103 MEQ/L Carbon Dioxide Level 23.1 MEQ/L Anion Gap 10 MEQ/L Blood Urea Nitrogen 39 MG/DL Creatinine 1.84 MG/DL Estimat Glomerular Filtration 35 ML/MIN Rate Random Glucose 134 MG/DL Calcium Level 8.3 MG/DL Total Creatine Kinase 235 U/L Creatine Kinase MB 7.9 NG/ML Troponin I 0.47 NG/ML 0.80 NG/ML Nasal Screen MRSA (PCR) NEGATIVE Blood Gas Puncture Site RT BRACHIAL Blood Gas Patient Temperature 98.6 Blood Gas HCO3 19 mmol/L Blood Gas Base Excess -5.1 mmol/L Blood Gas Oxygen Saturation 93 % Arterial Blood pH 7.36 Arterial Blood Partial 35 mmHg Pressure CO2 Arterial Blood Partial 90 mmHg Pressure O2 Arterial Blood Oxygen Content 10.8 Vol % Arterial Blood 1.6 % Carboxyhemoglobin Arterial Blood Methemoglobin 1.3 % Blood Gas Hemoglobin 8.2 G/DL Oxygen Delivery Device BIPAP 09/22 Blood Gas Inspired Oxygen 70 % Test 06/03/16 10:01 Troponin I 1.02 NG/ML Physical Exam General General Appearance: Well Developed, Well Nourished, No Acute Distress, Comfortable, Pale Eyes Eye Exam: Pupils Equal, Pupils Reactive Ears & Nose Ears & Nose Exam: Nasal Mucosa [place] Neck Neck Exam: Neck Supple, Trachea Midline Pulmonary Resp Exam: No Distress, Rhonchi, Decreased Bases, Diminished Breath Sounds Resp Remarks On BiPAP Cardiology CV Exam: Regular, Good Perfusion, Murmur Gastrointestinal/Abdomen GI Exam: Soft, Non-Tender, Bowel Sounds Present, Non-Distended Musculoskeletal MS Exam: Normal Tone, Good Strength Integumentary Skin Exam: Warm, Dry Extremeties Extremities Exam: No Edema, Pedal Pulses Palpable Neurologic Neuro Exam: Speech Clear (occasional nod or one-word spoken), Moving All Extremities, No Focal Deficits Psychiatric Psych Exam: Appropriate Responses VTE Prophylaxis VTE Prophylaxis Device: SCDs VTE Prophylaxis Meds: Lovenox Assessment/Plan Problem List: (1) Syncope (2) Hip fracture, right (3) Renal insufficiency (4) Aortic stenosis (5) Dementia (6) Status post intramedullary nail fixation of intertrochanteric hip fracture Assessment/Plan (1) Syncope (2) Hip fracture, right (3) Renal insufficiency (4) Aortic stenosis (5) Dementia (6) Status post intramedullary nail fixation of intertrochanteric hip fracture 7. pna, possible aspiration 8. acute kidney injury, possible chronic 9. Acute respiratory failure Plan Seen in ICU On BiPAP Cautious hydration Plan for NG tube patient was very agitated. Discussed with RN may try the above. Agitation will use Ativan on a when necessary basis as patient was using before Pulmonary consult Labs reviewed CT report reviewed no PE Status post intramedullary nail fixation of intertrochanteric hip fracture 05/29 Continue postop carepain management, physical therapy, Lovenox for DVT prophylaxis Status post surgical repair day 4 Hemoglobin stable at 8. 5 leukopcytosis stable 9.7 syncope, work up done Echocardiogram results noted, EF 55-60% with aortic stenosis (severe) cardiac telemetry CUS results no stenosis appreciate cardiology input, pt. with multiple comorbidities, adv. age, not a candidate for surgery. Cont. with med management D/W son at [facility], he's agreeable. Increased troponin and ST elevation [place] Will reconsult cardiology Likely medical management Aspirin Nitropaste Continue with Seroquel, Namenda, Aricept for dementia Blood pressure management Continue valsartan, amlodipine When necessary meds for high blood pressure Bowel regimen Labs reviewed, monitor needs, hemoglobin stable ,no leukocytosis, acute kidney injury which is possible chronic, no acute changes Cough, with some upper airway congestion, increased wheezing today, mild low volume dyspnea at rest Dual nebs increased to every 4 [id number], and every 2 when necessary for shortness of breath wheezing. New onset pneumonia. IV antibiotics started on 06-01. Family present in room. Speech eval and treat ordered. Will eval possible aspiration pneumonia. D/W RN in detail Condition critical prognosis guarded Total time in the management of this critical patient is approximately 35 minutes Problem Qualifiers (1) Syncope: (2) Hip fracture, right: Qualified Code: S72.001A - Hip fracture, right, closed, initial encounter (3) Aortic stenosis: Qualified Code: I35.0 - Aortic valve stenosis, unspecified etiology (4) Dementia: Connie Pfeiffer MD Jun 03, 2016 14:45
[2016-06-03] MEDS: LORazepam 0.5 MG TAB PO PRN (15:07)
--- NOTE | 2016-06-03 16:43 | EKG ---
Date Performed: 06/02/2016 Time Performed: 22:32:05 PTAGE: 89 years EKG: SINUS TACHYCARDIA ABNORMAL ECG PREVIOUS TRACING : 05/28/2016 12.34 DOCTOR: Aj Rose Interpretating Date/Time 06/03/2016 16:42:20
[2016-06-03] MEDS: LORazepam 2 MG/ML VIAL IM PRN (17:55)
--- NOTE | 2016-06-03 18:28 | PD.CARD.PN ---
Subjective Subjective Remarks Pt without CP on bipap Objective Medications Current Medications Medications (Trade) Dose Ordered Sig/Patsy Route Start Time Stop Time Status Last Admin (Tylenol) 650 mg Q4H PRN PO 05/28/16 17:30 (Zofran Inj) 4 mg Q6H PRN IVP 05/28/16 17:30 (Narcan Inj) 0.4 mg UNSCH PRN IV 05/28/16 17:30 (Norvasc) 5 mg DAILY PO 05/28/16 18:00 06/03/16 09:32 (Lipitor) 20 mg HS PO 05/28/16 21:00 06/03/16 02:33 (Aricept) 5 mg HS PO 05/28/16 21:00 06/03/16 02:34 (Ativan) 0.5 mg DAILY PRN PO 05/28/16 18:00 06/03/16 15:07 (NS Flush) 2 ml UNSCH PRN IVF 05/29/16 10:00 (NS Flush) 2 ml BID IVF 05/29/16 21:00 06/03/16 09:00 (Lovenox Inj) 30 mg Q24H SQ 05/30/16 10:00 06/03/16 09:32 ([place] 5-325 Mg) 1 tab Q4H PRN PO 05/29/16 10:00 06/02/16 16:07 (Oscal-D 250-125) 250 mg TID PO 05/29/16 13:00 06/03/16 09:32 (Benadryl) 25 mg Q6H PRN PO 05/29/16 10:00 06/03/16 15:07 (Morphine Inj) 3 mg Q3H PRN IV PUSH 05/29/16 10:00 06/03/16 11:39 (Vitamin D3) 5,000 units DAILY PO 05/30/16 09:00 06/03/16 09:32 (Milk Of Magnesia Liq) 30 ml DAILY PRN PO 05/30/16 10:30 05/30/16 12:44 (Namenda) 10 mg BID PO 05/30/16 21:00 06/03/16 09:31 (SEROquel) 25 mg TID PO 05/30/16 13:00 06/03/16 09:00 Valsartan 320 mg 320 mg DAILY PO 05/30/16 11:00 06/03/16 09:32 Cefepime HCl 1000 mg/Sodium Chloride 100 ml @ 200 mls/hr Q8H IV 06/01/16 13:00 06/03/16 04:35 (Zithromax Inj/ NS 250 ml Inj) 250 ml @ 250 mls/hr Q24H IV 06/01/16 14:00 06/02/16 16:01 Miscellaneous Information Patient in critical care unit? Ass... Q361D XX 06/02/16 22:30 (Chlorhexidine 2% Cloth) 3 pack DAILY@04 TOP 06/03/16 04:00 06/07/16 04:01 06/03/16 04:00 (Chlorhexidine 2% Cloth) 3 pack UNSCH PRN TOP 06/02/16 22:30 06/07/16 22:29 Methylprednisolone Sodium Succinate 40 mg 40 mg Q6HR IV PUSH 06/03/16 00:00 06/03/16 18:02 (NS 1000 ml Inj) 1,000 ml @ 75 mls/hr [id number] IV 06/02/16 23:45 06/02/16 23:45 (Trandate Inj) 10 mg Q6H PRN IV 06/03/16 13:15 (Apresoline Inj) 10 mg Q6H PRN IV 06/03/16 13:15 (Ativan Inj) 0.5 mg Q6H PRN IM 06/03/16 13:15 06/03/16 17:55 Vital Signs / I&O Vital Signs Date Time Temp Pulse Resp B/P Pulse Ox O2 Delivery O2 Flow Rate FiO2 06/03/16 16:29 90 55 06/03/16 16:00 98.7 106 20 112/58 94 06/03/16 16:00 106 06/03/16 14:00 107 06/03/16 13:05 93 55 06/03/16 12:00 119 06/03/16 12:00 98.5 115 20 123/58 93 06/03/16 10:00 104 06/03/16 09:48 95 55 06/03/16 08:00 98.7 103 20 130/59 97 06/03/16 08:00 103 06/03/16 07:21 98 60 06/03/16 07:00 96 Bi-Pap 70 06/03/16 06:00 98 06/03/16 04:03 94 70 06/03/16 04:00 100 06/03/16 04:00 98.1 103 27 138/81 98 06/03/16 02:00 98 06/03/16 01:20 99 60 06/03/16 00:30 98 100 06/03/16 00:00 97.6 108 22 104/65 93 06/02/16 21:55 132 91 06/02/16 21:55 Non-Rebreather 06/02/16 21:45 129 28 89 06/02/16 21:45 Non-Rebreather 06/02/16 21:36 Non-Rebreather 06/02/16 21:36 136 28 80 06/02/16 21:35 141 28 98/69 70 06/02/16 21:35 Simple Mask 4.00 06/02/16 21:34 Nasal Cannula 4.00 Humidified 06/02/16 21:34 154 28 75 06/02/16 21:15 Nasal Cannula 4.00 06/02/16 20:25 93 Nasal Cannula 4.00 06/02/16 20:00 98.4 95 18 110/55 93 I/O 06/02/16 06/02/16 06/02/16 06/03/16 06/03/16 06/03/16 07:00 15:00 23:00 07:00 15:00 23:00 Intake Total 600 ml 1013 ml 630 ml Balance 600 ml 1013 ml 630 ml Intake Oral 600 ml 0 ml 0 ml IV Total 1013 ml 630 ml # Voids 2 6 2 1 # Bowel Movements 1 4 1 Physical Exam GENERAL: Well developed, well nourished. No acute distress. HEENT: Jugular venous pressure is normal. CHEST: Lungs clear and decreased to auscultation bilaterally. CARDIAC: tachy rate and rhythm, MEMO. ABDOMEN: Soft, nontender, no hepatosplenomegaly. Bowel sounds present. EXTREMITIES: No clubbing, cyanosis, or edema. Laboratory Laboratory Tests Test 06/02/16 06/02/16 06/02/16 06/03/16 22:36 22:40 22:44 03:39 White Blood Count 9.7 TH/MM3 Red Blood Count 2.60 MIL/MM3 Hemoglobin 8.5 GM/DL Hematocrit 25.3 % Mean Corpuscular Volume 97.1 FL Mean Corpuscular Hemoglobin 32.7 PG Mean Corpuscular Hemoglobin 33.7 % Concent Red Cell Distribution Width 13.6 % Platelet Count 220 TH/MM3 Mean Platelet Volume 7.5 FL D-Dimer Quantitative (PE/DVT) 9.33 MG/L FEU Sodium Level 136 MEQ/L Potassium Level 5.0 MEQ/L Chloride Level 103 MEQ/L Carbon Dioxide Level 23.1 MEQ/L Anion Gap 10 MEQ/L Blood Urea Nitrogen 39 MG/DL Creatinine 1.84 MG/DL Estimat Glomerular Filtration 35 ML/MIN Rate Random Glucose 134 MG/DL Calcium Level 8.3 MG/DL Total Creatine Kinase 235 U/L Creatine Kinase MB 7.9 NG/ML Troponin I 0.47 NG/ML 0.80 NG/ML Nasal Screen MRSA (PCR) NEGATIVE Blood Gas Puncture Site RT BRACHIAL Blood Gas Patient Temperature 98.6 Blood Gas HCO3 19 mmol/L Blood Gas Base Excess -5.1 mmol/L Blood Gas Oxygen Saturation 93 % Arterial Blood pH 7.36 Arterial Blood Partial 35 mmHg Pressure CO2 Arterial Blood Partial 90 mmHg Pressure O2 Arterial Blood Oxygen Content 10.8 Vol % Arterial Blood 1.6 % Carboxyhemoglobin Arterial Blood Methemoglobin 1.3 % Blood Gas Hemoglobin 8.2 G/DL Oxygen Delivery Device BIPAP 09/22 Blood Gas Inspired Oxygen 70 % Test 06/03/16 10:01 Troponin I 1.02 NG/ML Imaging Last [address] Angiography 06/03/16 0000 Signed Impressions: Service Date/Time: Friday, June 03, 2016 01:23 - CONCLUSION: 1. No pulmonary embolus. 2. Mild bilateral pleural effusions being greater on the left. 3. Bibasilar areas of consolidation or atelectasis. Arpit Chappell MD Assessment and Plan Problem List: (1) NSTEMI (non-ST elevated myocardial infarction) Assessment and Plan: likely demand ischemia, secondary to resp insufficiency, anemia and CKD -medical management per family request (2) Aortic stenosis Assessment and Plan: severe that will be medically managed per family (3) Renal insufficiency (4) Tachycardia (5) Status post intramedullary nail fixation of intertrochanteric hip fracture (6) Hip fracture, right (7) Dementia Problem Qualifiers (1) Aortic stenosis: Qualified Code: I35.0 - Aortic valve stenosis, unspecified etiology (2) Hip fracture, right: Qualified Code: S72.001A - Hip fracture, right, closed, initial encounter (3) Dementia: Rhonda Armando MD Jun 03, 2016 18:28
[2016-06-03] MEDS ORDERED: HALOPERIDOL LACTATE 5 MG/ML AMP IV SCH (21:05)
[2016-06-04] VITALS (18 sets, daily range): BP systolic 81–111; BP diastolic 53–64; PULSE 101–131; RESP 16–28; TEMP 98.5–99.4; O2SAT 89–98
--- NOTE | 2016-06-04 00:59 | RADRPT ---
EXAM DATE/TIME: 06/03/2016 23:51 [facility] COMPARISON: CHEST SINGLE AP, May 31, 2016, 10:58. INDICATIONS : Dobhoff tube placement. MEDICAL HISTORY : None. SURGICAL HISTORY : None. ENCOUNTER: Subsequent ACUITY: 3 days PAIN SCORE: Non-responsive. LOCATION: Bilateral lower chest FINDINGS: There is a Dobbhoff tube seen in the right lower lung. The heart size is normal. There is hazy densit y throughout the lungs. CONCLUSION: Dobbhoff tube in the right lung. Arpit Chappell MD on June 04, 2016 at 0:55 Board Certified Radiologist. This report was verified electronically.
[2016-06-04] MEDS: methylPREDNISolone SOD SUCC 40 MG/1 ML VIAL IV PUSH SCH ×5 (01:17→22:51)
[2016-06-04] MEDS: SODIUM CHLOR 0.9% 1000 ML INJ 1,000 ML IV SCH ×3 (01:18→19:02)
[2016-06-04] MEDS: RESP: ALBUTEROL 2.5 MG/IPRATROPIUM 0.5 MG NEB (SCH) NEB ×6 (03:17→23:40)
[2016-06-04] MEDS: LORazepam 2 MG/ML VIAL IM PRN ×3 (03:24→22:51)
[2016-06-04] MEDS: CHLORHEXIDINE GLUCONATE 2 % 1 PACK (2 CLOTHS)(taper/protocol) TOP SCH (04:00)
[2016-06-04] MEDS: CEFEPIME INJ 1,000 MG in SODIUM CHLORIDE 0.9% INJ 100 ML IV SCH ×3 (04:44→20:01)
[2016-06-04 06:17] LABS: HEMATOCRIT 25.5 % (39.0-51.0); MEAN CELL VOLUME 98.1 FL (80.0-100.0); MEAN CORPUSCULAR HEMOGLOBIN 32.8 PG (27.0-34.0); MEAN CORPUSCULAR HGB CONC 33.4 % (32.0-36.0); PLATELET COUNT 311 TH/MM3 (150-450); RED CELL DISTRIBUTION WIDTH 13.5 % (11.6-17.2); REVIEW FLAG FINAL; WHITE BLOOD COUNT 16.9 TH/MM3 (4.0-11.0)
[2016-06-04 07:10] LABS: BICARBONATE 15.5 MEQ/L (21.0-32.0); POTASSIUM 5.5 MEQ/L (3.5-5.1)
[2016-06-04] MEDS: QUEtiapine FUMARATE 25 MG TAB PO SCH ×3 (07:23→14:39)
[2016-06-04] MEDS: VALSARTAN 160 MG TAB PO SCH (07:23)
[2016-06-04] MEDS: MEMANTINE HCL 10 MG TAB PO SCH ×2 (07:23→20:02)
[2016-06-04] MEDS: CHOLECALCIFEROL (VIT D3) 5000 UNIT CAP PO SCH (07:23)
[2016-06-04] MEDS: CALCIUM/VITAMIN D 250 MG/125 U TAB PO SCH ×3 (07:23→14:39)
[2016-06-04] MEDS: amLODIPine BESYLATE 5 MG TAB PO SCH (07:23)
[2016-06-04] MEDS: ENOXAPARIN SODIUM 30 MG/0.3 ML SYRINGE SQ SCH (08:19)
[2016-06-04] MEDS: MORPHINE SULFATE 4 MG/ML INJ IV PUSH PRN ×2 (08:20→18:20)
[2016-06-04] MEDS: SODIUM CHLORIDE 0.9% FLUSH 5 ML FLUSH IVF SCH ×2 (08:29→20:01)
--- NOTE | 2016-06-04 08:35 | PD.CARD.PN ---
Subjective Subjective Remarks Currently on Bipap, comfortable but on 100% Objective Medications Current Medications Medications (Trade) Dose Ordered Sig/Patsy Route Start Time Stop Time Status Last Admin (Tylenol) 650 mg Q4H PRN PO 05/28/16 17:30 (Zofran Inj) 4 mg Q6H PRN IVP 05/28/16 17:30 (Narcan Inj) 0.4 mg UNSCH PRN IV 05/28/16 17:30 (Norvasc) 5 mg DAILY PO 05/28/16 18:00 06/03/16 09:32 (Lipitor) 20 mg HS PO 05/28/16 21:00 06/03/16 02:33 (Aricept) 5 mg HS PO 05/28/16 21:00 06/03/16 02:34 (Ativan) 0.5 mg DAILY PRN PO 05/28/16 18:00 06/03/16 15:07 (NS Flush) 2 ml UNSCH PRN IVF 05/29/16 10:00 (NS Flush) 2 ml BID IVF 05/29/16 21:00 06/03/16 19:55 (Lovenox Inj) 30 mg Q24H SQ 05/30/16 10:00 06/04/16 08:19 ([place] 5-325 Mg) 1 tab Q4H PRN PO 05/29/16 10:00 06/02/16 16:07 (Oscal-D 250-125) 250 mg TID PO 05/29/16 13:00 06/03/16 09:32 (Benadryl) 25 mg Q6H PRN PO 05/29/16 10:00 06/03/16 15:07 (Morphine Inj) 3 mg Q3H PRN IV PUSH 05/29/16 10:00 06/04/16 08:20 (Vitamin D3) 5,000 units DAILY PO 05/30/16 09:00 06/03/16 09:32 (Milk Of Magnesia Liq) 30 ml DAILY PRN PO 05/30/16 10:30 05/30/16 12:44 (Namenda) 10 mg BID PO 05/30/16 21:00 06/03/16 09:31 (SEROquel) 25 mg TID PO 05/30/16 13:00 06/03/16 09:00 Valsartan 320 mg 320 mg DAILY PO 05/30/16 11:00 06/03/16 09:32 Cefepime HCl 1000 mg/Sodium Chloride 100 ml @ 200 mls/hr Q8H IV 06/01/16 13:00 06/04/16 04:44 (Zithromax Inj/ NS 250 ml Inj) 250 ml @ 250 mls/hr Q24H IV 06/01/16 14:00 06/02/16 16:01 Miscellaneous Information Patient in critical care unit? Ass... Q361D XX 06/02/16 22:30 (Chlorhexidine 2% Cloth) 3 pack DAILY@04 TOP 06/03/16 04:00 06/07/16 04:01 06/04/16 04:00 (Chlorhexidine 2% Cloth) 3 pack UNSCH PRN TOP 06/02/16 22:30 06/07/16 22:29 Methylprednisolone Sodium Succinate 40 mg 40 mg Q6HR IV PUSH 06/03/16 00:00 06/04/16 06:00 (NS 1000 ml Inj) 1,000 ml @ 75 mls/hr [id number] IV 06/02/16 23:45 06/04/16 01:18 (Trandate Inj) 10 mg Q6H PRN IV 06/03/16 13:15 (Apresoline Inj) 10 mg Q6H PRN IV 06/03/16 13:15 (Ativan Inj) 0.5 mg Q6H PRN IM 06/03/16 13:15 06/04/16 03:24 Vital Signs / I&O Vital Signs Date Time Temp Pulse Resp B/P Pulse Ox O2 Delivery O2 Flow Rate FiO2 06/04/16 07:26 98 100 06/04/16 06:00 116 06/04/16 04:03 93 100 06/04/16 04:00 131 06/04/16 04:00 98.5 131 28 99/64 90 06/04/16 02:00 122 06/04/16 01:03 92 65 06/04/16 00:00 119 06/04/16 00:00 119 28 81/53 89 06/03/16 22:50 91 65 06/03/16 22:00 124 06/03/16 20:02 28 06/03/16 20:00 137 06/03/16 20:00 99.0 106 24 115/65 89 06/03/16 19:15 88 BiPAP 55 06/03/16 19:15 88 55 06/03/16 19:00 89 Bi-Pap 60 06/03/16 18:00 102 06/03/16 16:29 90 55 06/03/16 16:00 98.7 106 20 112/58 94 06/03/16 16:00 106 06/03/16 14:00 107 06/03/16 13:05 93 55 06/03/16 12:00 119 06/03/16 12:00 98.5 115 20 123/58 93 06/03/16 10:00 104 06/03/16 09:48 95 55 I/O 06/03/16 06/03/16 06/03/16 06/04/16 06/04/16 06/04/16 07:00 15:00 23:00 07:00 15:00 23:00 Intake Total 1013 ml 630 ml 388 ml 340 ml Balance 1013 ml 630 ml 388 ml 340 ml Intake Oral 0 ml 0 ml IV Total 1013 ml 630 ml 388 ml 340 ml # Voids 2 1 3 2 # Bowel Movements 1 1 1 Physical Exam GENERAL: On Bipap HEAD: Atraumatic. Normocephalic. EYES: Pupils equal and round. No scleral icterus. No injection or drainage. ENT: No nasal bleeding or discharge. Mucous membranes pink and moist. NECK: Trachea midline. No JVD. CARDIOVASCULAR: Tachycardic, 3/6 crescendo-decrescendo to the RSB RESPIRATORY: Decreased breath sounds bilaterally with rhonchi GASTROINTESTINAL: Abdomen soft, non-tender, nondistended. Hepatic and splenic margins not palpable. MUSCULOSKELETAL: Extremities without clubbing, cyanosis, or edema. No obvious deformities. NEUROLOGICAL: Awake and alert. No obvious focal defects Laboratory Laboratory Tests Test 06/03/16 06/04/16 10:01 04:16 Troponin I 1.02 NG/ML White Blood Count 16.9 TH/MM3 Red Blood Count 2.60 MIL/MM3 Hemoglobin 8.5 GM/DL Hematocrit 25.5 % Mean Corpuscular Volume 98.1 FL Mean Corpuscular Hemoglobin 32.8 PG Mean Corpuscular Hemoglobin 33.4 % Concent Red Cell Distribution Width 13.5 % Platelet Count 311 TH/MM3 Mean Platelet Volume 8.5 FL Sodium Level 136 MEQ/L Potassium Level 5.5 MEQ/L Chloride Level 105 MEQ/L Carbon Dioxide Level 15.5 MEQ/L Anion Gap 16 MEQ/L Blood Urea Nitrogen 60 MG/DL Creatinine 2.92 MG/DL Estimat Glomerular Filtration 20 ML/MIN Rate Random Glucose 123 MG/DL Calcium Level 8.7 MG/DL Assessment and Plan Problem List: (1) NSTEMI (non-ST elevated myocardial infarction) (2) Aortic stenosis (3) Renal insufficiency (4) Tachycardia (5) Status post intramedullary nail fixation of intertrochanteric hip fracture (6) Hip fracture, right (7) Dementia (8) PNA (pneumonia) Assessment and Plan 1) Events noted, probably demand ischemia with respiratory insufficiency, tachycardia, and hypoxia 2) Would continue with medical management at this time 3) Possible PNA, will await pulmonary consultation, antibiotics started 4) Hold Valsartan Problem Qualifiers (1) Aortic stenosis: Qualified Code: I35.0 - Aortic valve stenosis, unspecified etiology (2) Hip fracture, right: Qualified Code: S72.001A - Hip fracture, right, closed, initial encounter (3) Dementia: Bhavik Mahmood DO Jun 04, 2016 08:35
--- NOTE | 2016-06-04 09:02 | MB ---
cc: RENEE FAUSTIN DATE OF CONSULTATION 06/03/[address] Pfeiffer REASON FOR CONSULTATION Respiratory failure. PRESENT ILLNESS Mr. Curran is a 83 year old male with history of Alzheimer's dementia. He was in a lock down unit because of dementia. He had a fall and had a hip fracture. The patient underwent right knee arthroplasty. He is hypoxic and on BiPAP. He was on 90% FIO2, now FIO2 decreased to 55%. The patient is not able to give history. Information obtained the chart. As per nurse, his troponin started rising. It was first 0.47, 0.80, 1.02. CBC showed WBC count 9.7, hemoglobin 8.5, hematocrit 25.3, MCV 97, platelet count 320. Sodium 136, potassium 5.0, chloride 103, BUN 39, creatinine 1.84. Blood gas 7.36, pCO2 35, pO2 91 and 70% BiPAP. CT of the chest shows no pulmonary embolism, shows a mild pleural effusion with atelectasis. PAST MEDICAL HISTORY 1. History of advanced dementia. 2. Arthritis. 3. Status post hip arthroplasty. 4. Hypertension. 5. Hyperlipidemia. 6. Chronic obstructive pulmonary disease. MEDICATIONS Currently taking 1. Albuterol as needed abuse. 2. Solu-Medrol 40 mg q. 6-hour. 3. Atrovent Nebulizer treatment 4. Zithromax 500 mg a day. 5. Cefepime 1 gram q 8 hr. 6. Amantadine 10 mg twice a day 7. Seroquel 25 mg three times a day. 8. Diovan 320 mg a day 9. Lovenox 30 mg q 24 hour. 10. [place] p.r.n. ALLERGIES NO KNOWN DRUG ALLERGIES. SOCIAL HISTORY He is . Lives in the dementia unit. FAMILY HISTORY Noncontributory REVIEW OF SYSTEMS Cannot assess. PHYSICAL EXAMINATION GENERAL: A well built, well-nourished elderly male on BiPAP, awake, moves extremity but not oriented to place or person. VITAL SIGNS: Blood pressure 112/58, heart rate 106, respirations 20, temperature 98.7 HEENT: Pupils react to light. NECK: Supple. JVP not raised. CHEST: No rhonchi. CARDIOVASCULAR: S1, S2 normal. ABDOMEN: Benign. EXTREMITIES: No edema. IMPRESSION 1. Respiratory failure. 2. COPD 3. Increased troponin 4. No pulmonary embolism. 5. Status post hip fracture and arthroplasty PLAN The patient is a DNR. We will keep him on BiPAP. Wean his oxygen. Continue aerosol treatment with IV Solu-Medrol. Continue antibiotic. Cardiology is evaluating the patient. Further treatment will depend on the course in the hospital. Thank you, Dr. Pfeiffer, for this consultation. MD LOPEZ Corrales/ /6:55 PM /8:46 AM [id number]
[2016-06-04] MEDS ORDERED: SODIUM POLYSTYRENE SULFONATE SUSP 15 GM/60 ML CUP PO ONE (11:00)
--- NOTE | 2016-06-04 11:49 | HHI.PR ---
Subjective Interval History remains on BIPAP non responsive unable to put Ng tube minimal urine output son at bed side Review of Systems Constitutional Constitutional: Fatigue, Weakness (generalized, postop day 4 improving) Musculoskeletal MS: Weakness (status post hip fracture) Psychiatric Psychiatric: Normal Mood Vitals/Results Intake & Output 06/03/16 06/03/16 06/04/16 15:00 23:00 07:00 Intake Total 630 ml 388 ml 340 ml Balance 630 ml 388 ml 340 ml Intake Oral 0 ml IV Total 630 ml 388 ml 340 ml # Voids 1 3 2 # Bowel Movements 1 1 1 Vital Signs Vital Signs Date Time Temp Pulse Resp B/P Pulse Ox O2 Delivery O2 Flow Rate FiO2 06/04/16 11:20 93 80 06/04/16 10:00 104 06/04/16 08:00 110 06/04/16 08:00 99.4 110 20 109/64 98 06/04/16 07:26 98 100 06/04/16 07:00 92 Bi-Pap 100 06/04/16 06:00 116 06/04/16 04:03 93 100 06/04/16 04:00 131 06/04/16 04:00 98.5 131 28 99/64 90 06/04/16 02:00 122 06/04/16 01:03 92 65 06/04/16 00:00 119 06/04/16 00:00 119 28 81/53 89 06/03/16 22:50 91 65 06/03/16 22:00 124 06/03/16 20:02 28 06/03/16 20:00 137 06/03/16 20:00 99.0 106 24 115/65 89 06/03/16 19:15 88 BiPAP 55 06/03/16 19:15 88 55 06/03/16 19:00 89 Bi-Pap 60 06/03/16 18:00 102 06/03/16 16:29 90 55 06/03/16 16:00 98.7 106 20 112/58 94 06/03/16 16:00 106 06/03/16 14:00 107 06/03/16 13:05 93 55 06/03/16 12:00 119 06/03/16 12:00 98.5 115 20 123/58 93 CBC/BMP: 06/04/16 0416 06/04/16 0416 Lab Results Laboratory Tests Test 06/04/16 04:16 White Blood Count 16.9 TH/MM3 Red Blood Count 2.60 MIL/MM3 Hemoglobin 8.5 GM/DL Hematocrit 25.5 % Mean Corpuscular Volume 98.1 FL Mean Corpuscular Hemoglobin 32.8 PG Mean Corpuscular Hemoglobin 33.4 % Concent Red Cell Distribution Width 13.5 % Platelet Count 311 TH/MM3 Mean Platelet Volume 8.5 FL Sodium Level 136 MEQ/L Potassium Level 5.5 MEQ/L Chloride Level 105 MEQ/L Carbon Dioxide Level 15.5 MEQ/L Anion Gap 16 MEQ/L Blood Urea Nitrogen 60 MG/DL Creatinine 2.92 MG/DL Estimat Glomerular Filtration 20 ML/MIN Rate Random Glucose 123 MG/DL Calcium Level 8.7 MG/DL Physical Exam General General Appearance: Well Developed, Well Nourished, Pale Eyes Eye Exam: Pupils Equal, Pupils Reactive Ears & Nose Ears & Nose Exam: Nasal Mucosa [place] Neck Neck Exam: Neck Supple, Trachea Midline Pulmonary Resp Exam: No Distress, Rhonchi, Decreased Bases, Diminished Breath Sounds Cardiology CV Exam: Regular, Good Perfusion, Tachycardia, Murmur Gastrointestinal/Abdomen GI Exam: Soft, Non-Tender, Bowel Sounds Present, Non-Distended Musculoskeletal MS Exam: Normal Tone, Good Strength Integumentary Skin Exam: Warm, Dry Extremeties Extremities Exam: No Edema, Pedal Pulses Palpable VTE Prophylaxis VTE Prophylaxis Device: SCDs VTE Prophylaxis Meds: Lovenox Assessment/Plan Problem List: (1) Syncope (2) Hip fracture, right (3) Renal insufficiency (4) Aortic stenosis (5) Dementia (6) Status post intramedullary nail fixation of intertrochanteric hip fracture Assessment/Plan (1) Syncope (2) Hip fracture, right (3) Renal insufficiency (4) Aortic stenosis (5) Dementia (6) Status post intramedullary nail fixation of intertrochanteric hip fracture 7. pna, possible aspiration 8. acute kidney injury, possible chronic 9. Acute respiratory failure Plan Seen in ICU On BiPAP 85% unable to pass dobhoff/ NG tube sec to agitation worsening renal function, minimal urine out put mirza inserted pulm input appreciated CT report reviewed no PE Status post intramedullary nail fixation of intertrochanteric hip fracture 05/29 Continue postop carepain management, physical therapy, Lovenox for DVT prophylaxis Status post surgical repair day 5 syncope, work up done Echocardiogram results noted, EF 55-60% with aortic stenosis (severe) cardiac telemetry appreciate cardiology input, pt. with multiple comorbidities, adv. age, not a candidate for surgery. Cont. with med management Increased troponin and ST elevation ND discussed with cardiology, medical management Aspirin Nitropaste Continue with Seroquel, Namenda, Aricept for dementia Blood pressure management Continue amlodipine valsartan held sec to worsened renal function insulin /d50 for hyperkalemia Bowel regimen Labs reviewed, monitor needs, hemoglobin stable ,no leukocytosis, acute kidney injury which is possible chronic, no acute changes Dual nebs increased to every 4 [id number], and every 2 when necessary for shortness of breath wheezing. New onset pneumonia. IV antibiotics D/W RN in detail Condition critical prognosis guarded discussed with son in detail advanced age with dementia, s/p fall, hip surgery with NSTEMI, severe aortic stenosis, resp insuffieciency, pNa and now worsenig renal function, prognosis appears extremely guarded and poor. d/w son in detail palliative care consult Total time in the management of this critical patient is approximately 35 minutes Problem Qualifiers (1) Syncope: (2) Hip fracture, right: Qualified Code: S72.001A - Hip fracture, right, closed, initial encounter (3) Aortic stenosis: Qualified Code: I35.0 - Aortic valve stenosis, unspecified etiology (4) Dementia: Veronica Krause MD Jun 04, 2016 11:49
[2016-06-04] MEDS ORDERED: INSULIN HUMAN REGULAR 1,000 UNITS/10 ML VIAL IV PUSH ONE (12:00)
[2016-06-04] MEDS ORDERED: DEXTROSE 50% IN WATER 50 ML SYRINGE IV ONE (12:00)
[2016-06-04] MEDS: AZITHROMYCIN INJ 500 MG in SODIUM CHLOR 0.9% 250 ML INJ 250 ML IV SCH (12:13)
--- NOTE | 2016-06-04 12:55 | PD.CONS ---
HPI Service Nephrology Consult Requested By Dr. Krause Reason for Consult Acute renal failure/chronic kidney disease Primary Care Physician Ari Barfield M.D. History of Present Illness Patient is a 89-year-old white male with history of dementia who had a fall and the had the fracture of the right hip he underwent the internal fixation on May 29, his hospital course is complicated by pneumonia increasing shortness of breath and 02 of June he decompensated and has respiratory distress requiring transfer to intensive care unit a CT angiogram was also done to rule out pulmonary embolism, since then his creatinine has increased from 1.8 -2.92. Oliguric acute renal failure associated with hyperkalemia as well as, he was given insulin D50 and Kayexalate. A Truong catheter is in place. Review of Systems ROS Limitations: Clinical Condition Constitutional: COMPLAINS OF: Fatigue Respiratory: COMPLAINS OF: Shortness of breath Past Family Social History Allergies: Coded Allergies: No Known Allergies (Unverified , 05/28/16) Past Medical History Dementia Hypertension Hyperlipidemia Osteoarthritis Congestive heart failure Aortic Stenosis COPD Past Surgical History Right hip surgery Reported Medications Reported Meds & Active Scripts Active Xarelto (Rivaroxaban) 10 Mg Tab 10 Mg PO DAILY [place] (Hydrocodone-Acetaminophen) 5-325 mg Tab 1 Tab PO Q4H PRN Reported Valsartan 320 Mg Tab 320 Mg PO DAILY Seroquel (Quetiapine Fumarate) 25 Mg Tab 25 Mg PO TID Namenda (Memantine) 10 Mg Tab 10 Mg PO BID Lorazepam 1 Mg Tab 1 Mg PO Q8H PRN Ketodan (Ketoconazole (Topical)) 2 % Aer Florastor (Saccharomyces Boulardii) 250 Mg Cap 250 Mg PO BID Atorvastatin (Atorvastatin Calcium) 20 Mg Tab 20 Mg PO HS Ativan (Lorazepam) 0.5 Mg Tab 0.5 Mg PO DAILY PRN Aricept (Donepezil) 5 Mg Tab 5 Mg PO HS Amlodipine (Amlodipine Besylate) 5 Mg Tab 5 Mg PO DAILY Active Ordered Medications Current Medications Medications (Trade) Dose Ordered Sig/Patsy Route Start Time Stop Time Status Last Admin (Tylenol) 650 mg Q4H PRN PO 05/28/16 17:30 (Zofran Inj) 4 mg Q6H PRN IVP 05/28/16 17:30 (Narcan Inj) 0.4 mg UNSCH PRN IV 05/28/16 17:30 (Norvasc) 5 mg DAILY PO 05/28/16 18:00 06/03/16 09:32 (Lipitor) 20 mg HS PO 05/28/16 21:00 06/03/16 02:33 (Aricept) 5 mg HS PO 05/28/16 21:00 06/03/16 02:34 (Ativan) 0.5 mg DAILY PRN PO 05/28/16 18:00 06/03/16 15:07 (NS Flush) 2 ml UNSCH PRN IVF 05/29/16 10:00 (NS Flush) 2 ml BID IVF 05/29/16 21:00 06/04/16 08:29 (Lovenox Inj) 30 mg Q24H SQ 05/30/16 10:00 06/04/16 08:19 ([place] 5-325 Mg) 1 tab Q4H PRN PO 05/29/16 10:00 06/02/16 16:07 (Oscal-D 250-125) 250 mg TID PO 05/29/16 13:00 06/03/16 09:32 (Benadryl) 25 mg Q6H PRN PO 05/29/16 10:00 06/03/16 15:07 (Morphine Inj) 3 mg Q3H PRN IV PUSH 05/29/16 10:00 06/04/16 08:20 (Vitamin D3) 5,000 units DAILY PO 05/30/16 09:00 06/03/16 09:32 (Milk Of Magnesia Liq) 30 ml DAILY PRN PO 05/30/16 10:30 05/30/16 12:44 (Namenda) 10 mg BID PO 05/30/16 21:00 06/03/16 09:31 (SEROquel) 25 mg TID PO 05/30/16 13:00 06/03/16 09:00 Valsartan 320 mg 320 mg DAILY PO 05/30/16 11:00 Hold 06/03/16 09:32 Cefepime HCl 1000 mg/Sodium Chloride 100 ml @ 200 mls/hr Q8H IV 06/01/16 13:00 06/04/16 12:14 (Zithromax Inj/ NS 250 ml Inj) 250 ml @ 250 mls/hr Q24H IV 06/01/16 14:00 06/04/16 12:13 Miscellaneous Information Patient in critical care unit? Ass... [id number] XX 06/02/16 22:30 (Chlorhexidine 2% Cloth) 3 pack DAILY@04 TOP 06/03/16 04:00 06/07/16 04:01 06/04/16 04:00 (Chlorhexidine 2% Cloth) 3 pack UNSCH PRN TOP 06/02/16 22:30 06/07/16 22:29 Methylprednisolone Sodium Succinate 40 mg 40 mg Q6HR IV PUSH 06/03/16 00:00 06/04/16 11:13 (NS 1000 ml Inj) 1,000 ml @ 75 mls/hr [id number] IV 06/02/16 23:45 06/04/16 01:18 (Trandate Inj) 10 mg Q6H PRN IV 06/03/16 13:15 (Apresoline Inj) 10 mg Q6H PRN IV 06/03/16 13:15 (Ativan Inj) 0.5 mg Q6H PRN IM 06/03/16 13:15 06/04/16 03:24 Family History Noncontributory Social History Resident of care home Physical Exam Vital Signs Vital Signs Date Time Temp Pulse Resp B/P Pulse Ox O2 Delivery O2 Flow Rate FiO2 06/04/16 11:20 93 80 06/04/16 10:00 104 06/04/16 08:00 110 06/04/16 08:00 99.4 110 20 109/64 98 06/04/16 07:26 98 100 06/04/16 07:00 92 Bi-Pap 100 06/04/16 06:00 116 06/04/16 04:03 93 100 06/04/16 04:00 131 06/04/16 04:00 98.5 131 28 99/64 90 06/04/16 02:00 122 06/04/16 01:03 92 65 06/04/16 00:00 119 06/04/16 00:00 119 28 81/53 89 06/03/16 22:50 91 65 06/03/16 22:00 124 06/03/16 20:02 28 06/03/16 20:00 137 06/03/16 20:00 99.0 106 24 115/65 89 06/03/16 19:15 88 BiPAP 55 06/03/16 19:15 88 55 06/03/16 19:00 89 Bi-Pap 60 06/03/16 18:00 102 06/03/16 16:29 90 55 06/03/16 16:00 98.7 106 20 112/58 94 06/03/16 16:00 106 06/03/16 14:00 107 06/03/16 13:05 93 55 Physical Exam GENERAL: Well-nourished, well-developed patient. Appears to be confused on BiPAP SKIN: Warm and dry. HEAD: Normocephalic. EYES: No scleral icterus. No injection or drainage. NECK: Supple, trachea midline. No JVD or lymphadenopathy. CARDIOVASCULAR: Tachycardia RESPIRATORY: Breath sounds coarse Rales throughout the chest GASTROINTESTINAL: Abdomen soft, non-tender, nondistended. EXTREMITIES: No cyanosis, or edema. NEUROLOGICAL: Awake, alert, Laboratory Laboratory Tests Test 06/04/16 06/04/16 04:16 11:25 White Blood Count 16.9 Red Blood Count 2.60 Hemoglobin 8.5 Hematocrit 25.5 Mean Corpuscular Volume 98.1 Mean Corpuscular Hemoglobin 32.8 Mean Corpuscular Hemoglobin 33.4 Concent Red Cell Distribution Width 13.5 Platelet Count 311 Mean Platelet Volume 8.5 Sodium Level 136 Potassium Level 5.5 Chloride Level 105 Carbon Dioxide Level 15.5 Anion Gap 16 Blood Urea Nitrogen 60 Creatinine 2.92 Estimat Glomerular Filtration 20 Rate Random Glucose 123 Calcium Level 8.7 Lactic Acid Level 2.3 Result Diagram: 06/04/16 0416 06/04/16 0416 Imaging Last Impressions Chest X-Ray 06/03/16 0000 Signed Impressions: Service Date/Time: Friday, June 03, 2016 23:51 - CONCLUSION: Dobbhoff tube in the right lung. Arpit Chappell MD CT Angiography 06/03/16 0000 Signed Impressions: Service Date/Time: Friday, June 03, 2016 01:23 - CONCLUSION: 1. No pulmonary embolus. 2. Mild bilateral pleural effusions being greater on the left. 3. Bibasilar areas of consolidation or atelectasis. Arpit Chappell MD Carotid Artery Ultrasound 05/30/16 0000 Signed Impressions: Service Date/Time: Monday, May 30, 2016 14:04 - CONCLUSION: 1. There is calcified atherosclerotic plaquing at the carotid bifurcations. No hemodynamically significant stenosis is evident by velocity indices. Ashish Harrell MD Hip X-Ray 05/29/16 0000 Signed Impressions: Service Date/Time: May 10:24 - CONCLUSION: Limited images as detailed above. Ever Stephen Jr., MD Head CT 05/28/16 1221 Signed Impressions: Service Date/Time: Saturday, May 28, 2016 13:59 - CONCLUSION: No acute intracranial disease. Cerebral atrophy. Sander Galindo MD Hip and Pelvis X-Ray 05/28/16 0000 Signed Impressions: Service Date/Time: Saturday, May 28, 2016 13:10 - CONCLUSION: Mildly displaced intertrochanteric fracture of right hip. Sander Galindo MD Assessment and Plan Problem List: (1) Acute renal failure Plan: Patient appears to have acute tubular necrosis from underlying medical condition and the he did receive contrast study recently, he had an output it is low I will plan to place him on Bumex drip order a kidney ultrasound Avoid nephrotoxins, I spoke to the son and he is going to meet with palliative care he has multiple medical issues and advanced dementia and is leaning towards comfort measures I did spoke to him briefly about possibility of dialysis and he will address this after the meeting with palliative care team. (2) Hyperkalemia Plan: Treated medically (3) Acidosis, metabolic Plan: Ordered sodium bicarbonate (4) CHF (congestive heart failure) Plan: Bumex drip (5) CKD (chronic kidney disease) stage 3, GFR 30-59 ml/min Plan: Multiple medical issues (6) PNA (pneumonia) Plan: Was treated with Zithromax and cefepime (7) NSTEMI (non-ST elevated myocardial infarction) Plan: Cardiology following he has severe aortic stenosis (8) Hip fracture, right Plan: He has surgeries recently Problem Qualifiers (1) Hip fracture, right: Qualified Code: S72.001A - Hip fracture, right, closed, initial encounter Nia Hwang MD Jun 04, 2016 12:55
[2016-06-04] MEDS ORDERED: SODIUM BICARBONATE 8.4% INJ 50 MEQ/50 ML SYR IV PUSH ONE (13:00)
--- NOTE | 2016-06-04 13:26 | PD.CONS ---
Consult Service Palliative Care Consult Requested By MD Jimi - reason for consult: Advanced age, dementia, status post fall, hip surgery, NSTEMI, respiratory insufficiency, COPD, VERO Primary Care Physician Ari Barfield M.D. Reason for Consultation a. To assist with evaluation and management of symptoms including: Pain, dyspnea, anxiety b. To assist medical decision maker(s) with: better understanding of current medical conditions; weighing benefits/burdens of medical treatment options; making medical treatment decisions. HPI History of Present Illness Mr. Curran is an 89-year-old male with history of Alzheimer's dementia, a resident at [facility], who presented to the emergency room on 05/28/16 after a fall with complaints of hip pain. He has no recollection of the fall. Initial x-ray identified a mildly displaced intertrochanteric trochanteric fracture of the right hip. Initial labs identified. Some mild anemia with a hemoglobin of 11, as well as elevated creatinine with a GFR of 38. On 05/29/16 he underwent Right hip reduction and intramedullary nail fixation. He was placed on DVT prophylaxis with Lovenox 30 mg daily. An echocardiogram was completed pre-operatively which identified an ejection fraction of 55-60% with severe aortic stenosis with a valve area of 1.2 and a mean gradient of 46. In light of his advanced age and general debility further intervention was not considered. Patient's son agreed that his father is not a great candidate for AVR or TAVR, will continue with current management. Postoperatively, his pulmonary status declined, as evidenced by decreasing pulse oximetry and increase need for supplemental oxygen. On 05/31/16 Chest x- ray identified mild lori-perihilar infiltrates consistent with fluid overload and atypical pneumonia. He was started on antibiotics. On 06/02/16, He was advanced to a nonrebreather and on 06/03/16. He was placed on BiPAP with 100% FiO2 and a pulse ox of 92 . He also complained of chest pain at this time. EKG was completed. Serial troponins were elevated. Cardiology was consult to evaluate and it was determined he had incurred a NSTEMI , probably demand ischemia in light of respiratory insufficiency, tachycardia. The recommendation was for medical management only. On 06/04/16. He was also noted to have declining renal function appearing to have an acute on chronic renal injury. Since admission, his GFR has been 38-40 and this morning it was at 20. He was also noted to be hyperkalemic with a potassium of 5.5, CO2 had dropped to 15.5 and lactic acid is now above normal limits A swallow eval was completed on 06/02/16. He was found to be able to manage chemical soft diet with thin liquids without overt symptoms of aspiration. Repeat study was done on 221 at which time he exhibited severe oral phase dysfunction due to cognition. He was unable to manage any consistency and was evaluated to be at high risk for aspiration. He was recommended for NPO. Staff was unable to pass a feeding tube due to agitation. At the time of my visit, the patient's Arlene and his son Samuel were present. He was awake and alert, responding to his , with eye contact and some words. He would respond to some commands. Unable to determine level of cognition. He states he is without pain and he appears reasonably comfortable despite the BiPAP mask. I was able to attend family history and talk about goals of care. He has been 69 years, there are 5 children, most of whom are local, he is Episcopalian and she requests a electric tripper machine operator to visit him. He is a [employer] War [employer] served in the [employer]. Function/Cognitive Trajectory Mr. Curran presents with advanced dementia. His cognitive state,at this point is compromised by his clinical condition. He is unable to provide any reliable information. Review of Systems ROS Limitations: Clinical Condition, Altered Mental Status, Poor Historian Constitutional: COMPLAINS OF: Generalized weakness Ears, nose, mouth, throat: COMPLAINS OF: Hearing loss Respiratory: COMPLAINS OF: Shortness of breath Cardiovascular: COMPLAINS OF: Chest pain, Dyspnea on Exertion Gastrointestinal: COMPLAINS OF: Difficulty Swallowing Genitourinary: COMPLAINS OF: Urinary incontinence Musculoskeletal: COMPLAINS OF: Joint pain (recent fractured hip) Neurologic: COMPLAINS OF: Poor Balance Psychiatric: COMPLAINS OF: Anxiety, Confusion, Agitation Other ROS: Unable to adequately obtain a full review of systems due to his cognitive status , dyspnea, Additional information is obtained from review of records or family Past Family Social History Coded Allergies: No Known Allergies (Unverified , 05/28/16) Past Medical History * Alzheimer's dementia * COPD * Hyperlipidemia * Hypertension * Aortic stenosis Past Surgical History * Status post right hip arthroplasty Reported Medications Ketodan (Ketoconazole (Topical)) 2 % Aer Florastor (Saccharomyces Boulardii) 250 Mg Cap 250 Mg PO BID Atorvastatin (Atorvastatin Calcium) 20 Mg Tab 20 Mg PO HS Ativan (Lorazepam) 0.5 Mg Tab 0.5 Mg PO DAILY PRN Aricept (Donepezil) 5 Mg Tab 5 Mg PO HS Namenda 10 mg twice a day Seroquel 25 mg 3 times a day Valsartan 320 mg daily Amlodipine (Amlodipine Besylate) 5 Mg Tab 5 Mg PO DAILY Xarelto ? Current Medications Medications (Trade) Dose Ordered Sig/Patsy Route Start Time Stop Time Status Last Admin (Tylenol) 650 mg Q4H PRN PO 05/28/16 17:30 (Zofran Inj) 4 mg Q6H PRN IVP 05/28/16 17:30 (Narcan Inj) 0.4 mg UNSCH PRN IV 05/28/16 17:30 (Norvasc) 5 mg DAILY PO 05/28/16 18:00 06/03/16 09:32 (Lipitor) 20 mg HS PO 05/28/16 21:00 06/03/16 02:33 (Aricept) 5 mg HS PO 05/28/16 21:00 06/03/16 02:34 (Ativan) 0.5 mg DAILY PRN PO 05/28/16 18:00 06/03/16 15:07 (NS Flush) 2 ml UNSCH PRN IVF 05/29/16 10:00 (NS Flush) 2 ml BID IVF 05/29/16 21:00 06/04/16 08:29 (Lovenox Inj) 30 mg Q24H SQ 05/30/16 10:00 06/04/16 08:19 ([place] 5-325 Mg) 1 tab Q4H PRN PO 05/29/16 10:00 06/02/16 16:07 (Oscal-D 250-125) 250 mg TID PO 05/29/16 13:00 06/03/16 09:32 (Benadryl) 25 mg Q6H PRN PO 05/29/16 10:00 06/03/16 15:07 (Morphine Inj) 3 mg Q3H PRN IV PUSH 05/29/16 10:00 06/04/16 08:20 (Vitamin D3) 5,000 units DAILY PO 05/30/16 09:00 06/03/16 09:32 (Milk Of Magnesia Liq) 30 ml DAILY PRN PO 05/30/16 10:30 05/30/16 12:44 (Namenda) 10 mg BID PO 05/30/16 21:00 06/03/16 09:31 (SEROquel) 25 mg TID PO 05/30/16 13:00 06/03/16 09:00 Valsartan 320 mg 320 mg DAILY PO 05/30/16 11:00 Hold 06/03/16 09:32 Cefepime HCl 1000 mg/Sodium Chloride 100 ml @ 200 mls/hr Q8H IV 06/01/16 13:00 06/04/16 12:14 (Zithromax Inj/ NS 250 ml Inj) 250 ml @ 250 mls/hr Q24H IV 06/01/16 14:00 06/04/16 12:13 Miscellaneous Information Patient in critical care unit? Ass... [id number] XX 06/02/16 22:30 (Chlorhexidine 2% Cloth) 3 pack DAILY@04 TOP 06/03/16 04:00 06/07/16 04:01 06/04/16 04:00 (Chlorhexidine 2% Cloth) 3 pack UNSCH PRN TOP 06/02/16 22:30 06/07/16 22:29 Methylprednisolone Sodium Succinate 40 mg 40 mg Q6HR IV PUSH 06/03/16 00:00 06/04/16 11:13 (NS 1000 ml Inj) 1,000 ml @ 75 mls/hr [id number] IV 06/02/16 23:45 06/04/16 01:18 (Trandate Inj) 10 mg Q6H PRN IV 06/03/16 13:15 (Apresoline Inj) 10 mg Q6H PRN IV 06/03/16 13:15 Lorazepam 0.5 mg 0.5 mg Q6H PRN IM 06/03/16 13:15 06/04/16 03:24 (Bumex Inj) 100 ml @ 4 mls/hr CONTINUOUS IV 06/04/16 15:00 (Sodium Bicarbonate 8.4% Inj) 50 meq ONCE ONCE IV PUSH 06/04/16 13:00 06/04/16 13:01 UNV Family History Father from heart disease 84 / [place]; Mother from old age 92 There are 5 children in total: Nicole lives in [place], Sameul lives and was constant, Yusef lives in [place], he lives in [facility] and Kathy lives in [place] Substance Use Tobacco: No reported history Alcohol: No reported history Prescription med abuse: No reported history Illicits: No reported history Psychosocial History He and his came from the [place] area,he is a [employer] [place] [employer] [place] , did not se active service; 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 Patient is currently living in a locked unit for dementia patients at [facility]. His lives in [facility] in their home; . Spiritual/Cultural Factors He is Episcopalian. They attend jain regularly in [facility]. His has asked for a training program assistant to visit him Living Will: Copy in medical record Health Care Surrogate: Copy in medical record Durable Power of Exceptional Children Teacher: Copy in medical record Health Care Surrogate(s): Arlene and son Samuel share responsibility Documented care wishes: Family indicates that they would want comfort measures in the event cure is not possible and are considering hospice. They also appreciate his advanced age and his dementia. Today's verbally stated goals: Samuel will speak with his mom privately as well as the rest of his family to discuss transitioning to hospice care Ethical and Legal Issues None identified Physical Exam Vital Signs Date Time Temp Pulse Resp B/P Pulse Ox O2 Delivery O2 Flow Rate FiO2 06/04/16 12:00 105 06/04/16 12:00 99.2 105 26 111/64 97 06/04/16 11:20 93 80 06/04/16 10:00 104 06/04/16 08:00 110 06/04/16 08:00 99.4 110 20 109/64 98 06/04/16 07:26 98 100 06/04/16 07:00 92 Bi-Pap 100 06/04/16 06:00 116 06/04/16 04:03 93 100 06/04/16 04:00 131 06/04/16 04:00 98.5 131 28 99/64 90 06/04/16 02:00 122 06/04/16 01:03 92 65 06/04/16 00:00 119 06/04/16 00:00 119 28 81/53 89 06/03/16 22:50 91 65 06/03/16 22:00 124 06/03/16 20:02 28 06/03/16 20:00 137 06/03/16 20:00 99.0 106 24 115/65 89 06/03/16 19:15 88 BiPAP 55 06/03/16 19:15 88 55 06/03/16 19:00 89 Bi-Pap 60 06/03/16 18:00 102 06/03/16 16:29 90 55 06/03/16 16:00 98.7 106 20 112/58 94 06/03/16 16:00 106 06/03/16 14:00 107 06/03/16 13:05 93 55 06/03/16 06/04/16 19:00 07:00 Intake Total 630 ml 728 ml Balance 630 ml 728 ml Intake Oral 0 ml IV Total 630 ml 728 ml # Voids 1 5 # Bowel Movements 1 2 Exam CONSTITUTIONAL/GENERAL: This is an adequately nourished patient, in no apparent distress. TUBES/LINES/DRAINS: BiPAP mask, Truong catheter, multiple IV lines SKIN: No jaundice, rashes, or lesions. Ecchymoses on upper extremities. No wounds seen anteriorly. Skin temperature appropriate. Not diaphoretic. HEAD: Atraumatic. Normocephalic. EYES: Pupils equal and round and reactive. Extraocular motions intact. No scleral icterus. No injection or drainage. Fundi not examined. ENT: Hearing appears to be normal normal. Mouth is dry with mask on. Unable to assess. Throat NECK: Trachea midline. Supple, nontender.. CARDIOVASCULAR: Irregular rate and rhythm without murmurs. Tachycardic, Peripheral pulses symmetric. RESPIRATORY/CHEST: Symmetric, unlabored respirations. Diminished posterior bilateral. Breath sounds equal bilaterally. No wheezes, rales, or rhonchi. GASTROINTESTINAL: Abdomen soft, non-tender, nondistended. No hepato-splenomegaly , or palpable masses. No guarding. Bowel sounds present. GENITOURINARY: Without palpable bladder distension. Truong catheter in place. MUSCULOSKELETAL: Extremities without clubbing, cyanosis, or edema. No joint tenderness or effusion noted. No calf tenderness. No mottling or clubbing. LYMPHATICS: No palpable cervical or supraclavicular adenopathy. NEUROLOGICAL: Awake and alert to self and . Follows some commands Cognitively limited and unable to effectively assess. Currently in arm restraints. PSYCHIATRIC: Unable to effectively assess. He has been agitated and irritated. Secondary to Dementia Diagnostic Tests Laboratory Laboratory Tests Test 06/02/16 06/02/16 06/02/16 06/02/16 06:12 22:36 22:40 22:44 White Blood Count 7.2 TH/MM3 9.7 TH/MM3 (4.0-11.0) (4.0-11.0) Red Blood Count 2.58 MIL/MM3 2.60 MIL/MM3 (4.50-5.90) (4.50-5.90) Hemoglobin 8.6 GM/DL 8.5 GM/DL (13.0-17.0) (13.0-17.0) Hematocrit 24.6 % 25.3 % (39.0-51.0) (39.0-51.0) Mean Corpuscular Volume 95.2 FL 97.1 FL (80.0-100.0) (80.0-100.0) Mean Corpuscular Hemoglobin 33.5 PG 32.7 PG (27.0-34.0) (27.0-34.0) Mean Corpuscular Hemoglobin 35.1 % 33.7 % Concent (32.0-36.0) (32.0-36.0) Red Cell Distribution Width 13.1 % 13.6 % (11.6-17.2) (11.6-17.2) Platelet Count 203 TH/MM3 220 TH/MM3 (150-450) (150-450) Mean Platelet Volume 8.2 FL 7.5 FL (7.0-11.0) (7.0-11.0) Sodium Level 136 MEQ/L 136 MEQ/L (136-145) (136-145) Potassium Level 4.5 MEQ/L 5.0 MEQ/L (3.5-5.1) (3.5-5.1) Chloride Level 105 MEQ/L 103 MEQ/L (98-107) (98-107) Carbon Dioxide Level 23.2 MEQ/L 23.1 MEQ/L (21.0-32.0) (21.0-32.0) Anion Gap 8 MEQ/L (5-15) 10 MEQ/L (5-15) Blood Urea Nitrogen 36 MG/DL (7-18) 39 MG/DL (7-18) Creatinine 1.63 MG/DL 1.84 MG/DL (0.60-1.30) (0.60-1.30) Estimat Glomerular Filtration 40 ML/MIN (>89) 35 ML/MIN (>89) Rate Random Glucose 93 MG/DL 134 MG/DL (74-106) (74-106) Calcium Level 8.4 MG/DL 8.3 MG/DL (8.5-10.1) (8.5-10.1) D-Dimer Quantitative (PE/DVT) 9.33 MG/L FEU (0.00-0.50) Total Creatine Kinase 235 U/L (39-308) Creatine Kinase MB 7.9 NG/ML (0.5-3.6) Troponin I 0.47 NG/ML (0.02-0.05) Nasal Screen MRSA (PCR) NEGATIVE (NEGATIVE) Blood Gas Puncture Site RT BRACHIAL Blood Gas Patient Temperature 98.6 Blood Gas HCO3 19 mmol/L (22-26) Blood Gas Base Excess -5.1 mmol/L (-2-2) Blood Gas Oxygen Saturation 93 % (90-100) Arterial Blood pH 7.36 (7.380-7.420) Arterial Blood Partial 35 mmHg (38-42) Pressure CO2 Arterial Blood Partial 90 mmHg Pressure O2 (61-120) Arterial Blood Oxygen Content 10.8 Vol % (12.0-20.0) Arterial Blood 1.6 % (0-4) Carboxyhemoglobin Arterial Blood Methemoglobin 1.3 % (0-2) Blood Gas Hemoglobin 8.2 G/DL (12.0-16.0) Oxygen Delivery Device BIPAP 09/22 Blood Gas Inspired Oxygen 70 % Test 06/03/16 06/03/16 06/04/16 06/04/16 03:39 10:01 04:16 11:25 Troponin I 0.80 NG/ML 1.02 NG/ML (0.02-0.05) (0.02-0.05) White Blood Count 16.9 TH/MM3 (4.0-11.0) Red Blood Count 2.60 MIL/MM3 (4.50-5.90) Hemoglobin 8.5 GM/DL (13.0-17.0) Hematocrit 25.5 % (39.0-51.0) Mean Corpuscular Volume 98.1 FL (80.0-100.0) Mean Corpuscular Hemoglobin 32.8 PG (27.0-34.0) Mean Corpuscular Hemoglobin 33.4 % Concent (32.0-36.0) Red Cell Distribution Width 13.5 % (11.6-17.2) Platelet Count 311 TH/MM3 (150-450) Mean Platelet Volume 8.5 FL (7.0-11.0) Sodium Level 136 MEQ/L (136-145) Potassium Level 5.5 MEQ/L (3.5-5.1) Chloride Level 105 MEQ/L (98-107) Carbon Dioxide Level 15.5 MEQ/L (21.0-32.0) Anion Gap 16 MEQ/L (5-15) Blood Urea Nitrogen 60 MG/DL (7-18) Creatinine 2.92 MG/DL (0.60-1.30) Estimat Glomerular Filtration 20 ML/MIN (>89) Rate Random Glucose 123 MG/DL (74-106) Calcium Level 8.7 MG/DL (8.5-10.1) Lactic Acid Level 2.3 mmol/L (0.4-2.0) Result Diagram: 06/04/16 0416 06/04/16 0416 Imaging Last 48 hours Impressions Chest X-Ray 06/03/16 0000 Signed Impressions: Service Date/Time: Friday, June 03, 2016 23:51 - CONCLUSION: Dobbhoff tube in the right lung. Arpit Chappell MD CT Angiography 06/03/16 0000 Signed Impressions: Service Date/Time: Friday, June 03, 2016 01:23 - CONCLUSION: 1. No pulmonary embolus. 2. Mild bilateral pleural effusions being greater on the left. 3. Bibasilar areas of consolidation or atelectasis. Arpit Chappell MD Patient/Family Conference Present at Family Conference: Arlene and son, Samuel. Discussed the role of palliative care and the patient's management. Reviewed and correlated clinical information and the family's understanding. Reviewed the patient's stated wishes and DNR status. of 69 years is hopeful that he could recover. Spoke with the son, Samuel, who is more realistic to the clinical issues and concerns. He has spoken with other members of the family who are in agreement that comfort measures are more appropriate at this time. He agrees that hospice may be an appropriate transition. He will speak with his mother privately later today regarding transitioning to a hospice care center with withdrawal of BiPAP. Family Conference Location: Bedside Issues Discussed: * Palliative care role, purpose, approach * Additional medical, psychosocial, and spiritual history * Patients general health, functional status, and cognitive changes in the months leading up to the current hospitalization * Patient/family understanding of the current medical problems * Patient/family understanding of prognosis * Patients goals of care as best understood from advance directives and/or conversations and/or values * Current medical treatment options and benefits/burdens of those options * Likely scenarios comparing ongoing aggressive care with a transition to comfort measures only * Questions answered to the best of my ability * Palliative care contact information provided Assessment and Plan Disease Oriented Problem List: (1) Dementia (2) Status post intramedullary nail fixation of intertrochanteric hip fracture (3) Acute renal failure (4) CKD (chronic kidney disease) stage 3, GFR 30-59 ml/min (5) NSTEMI (non-ST elevated myocardial infarction) (6) PNA (pneumonia) (7) Hyperkalemia (8) CHF (congestive heart failure) Symptom Scale: (1) Pain 0-10 Scale: Unable to quantify Comment: Status post left hip repair (2) Dyspnea 0-10 Scale: Unable to quantify Comment: History of COPD with compromised respiratory status, pneumonia (3) Agitation 0-10 Scale: Unable to quantify Comment: Patient has advanced Alzheimer's disease. He has been given Haldol and Ativan (4) Debility, unspecified 0-10 Scale: Unable to quantify Pertinent Non-Medical Issues Psychosocial: Spiritual: Legal: Ethical issues impacting care: Important Contacts Arlene Curran, home phone number [phone]/cell phone [phone] Son, Samuel Curran, cell phone number [phone] Prognosis Extremely poor in light of NSTEMI, VERO, pneumonia, advanced age and dementia Code Status: No Code Plan Decision Maker: Shared between Arlene and Son Samuel Code Status: No code DNR Family Discussion: Discussed prognosis in light of patient's age and multiple current acute issues. Family cordero comfort measures are more appropriate and are considering hospice. Samuel will talk with his mother later today and the family. Hospice consult Symptoms: Pain, dyspnea, agitation/anxiety Palliative care phone number provided - will follow during hospital stay. Thank you for the opportunity to participate in the care of Mr. Curran. Attestation To help prompt me to consider important information that might be impacting today's encounter and assessment, information from prior notes written by myself or my colleagues may have been "brought forward" into today's note. My signature on this note, however, is an attestation that I personally performed the exam, history, and/or decision-making noted today, and, unless otherwise indicated, the interactions with patient, family, and staff as well as the review of records all occurred today. I also attest that the listed assessment and stated plan reflect my best clinical judgment today based on the combination of historical information, prior notes, and today's exam/ interactions. When time spent is documented, it refers only to time spent today by the signer, or if indicated, combined time spent today by collaborating physician/nurse practitioner. Estefany Hutson Jun 04, 2016 13:26
[2016-06-04] MEDS: BUMETANIDE INJ 100 ML IV SCH (14:11)
--- NOTE | 2016-06-04 16:41 | HHI.PR ---
Subjective Remarks 89 YOWM with advanced Dementia,RF, on BIPAP Has worsening of renal functions and son at Palliative care consulted. Objective Vital Signs Vital Signs Date Time Temp Pulse Resp B/P Pulse Ox O2 Delivery O2 Flow Rate FiO2 06/04/16 16:05 95 85 06/04/16 16:00 106 06/04/16 16:00 98.7 106 21 107/59 94 06/04/16 14:00 110 06/04/16 12:00 105 06/04/16 12:00 99.2 105 26 111/64 97 06/04/16 11:20 93 80 06/04/16 10:00 104 06/04/16 08:00 110 06/04/16 08:00 99.4 110 20 109/64 98 06/04/16 07:26 98 100 06/04/16 07:00 92 Bi-Pap 100 06/04/16 06:00 116 06/04/16 04:03 93 100 06/04/16 04:00 131 06/04/16 04:00 98.5 131 28 99/64 90 06/04/16 02:00 122 06/04/16 01:03 92 65 06/04/16 00:00 119 06/04/16 00:00 119 28 81/53 89 06/03/16 22:50 91 65 06/03/16 22:00 124 06/03/16 20:02 28 06/03/16 20:00 137 06/03/16 20:00 99.0 106 24 115/65 89 06/03/16 19:15 88 BiPAP 55 06/03/16 19:15 88 55 06/03/16 19:00 89 Bi-Pap 60 06/03/16 18:00 102 I/O 06/03/16 06/03/16 06/03/16 06/04/16 06/04/16 06/04/16 07:00 15:00 23:00 07:00 15:00 23:00 Intake Total 1013 ml 630 ml 388 ml 340 ml 273 ml Output Total 150 ml Balance 1013 ml 630 ml 388 ml 340 ml 123 ml Intake Oral 0 ml 0 ml IV Total 1013 ml 630 ml 388 ml 340 ml 273 ml Output Urine Total 150 ml # Voids 2 1 3 2 # Bowel Movements 1 1 1 0 Result Diagram: 06/04/16 0416 06/04/16 0416 Objective Remarks GENERAL: Elderly male on BIPAP SKIN: Warm and dry. HEAD: Normocephalic. EYES: No scleral icterus. No injection or drainage. NECK: Supple, trachea midline. No JVD or lymphadenopathy. CARDIOVASCULAR: Regular rate and rhythm without murmurs, gallops, or rubs. RESPIRATORY: Breath sounds equal bilaterally. No accessory muscle use. GASTROINTESTINAL: Abdomen soft, non-tender, nondistended. MUSCULOSKELETAL: No cyanosis, or edema. BACK: Nontender without obvious deformity. No CVA tenderness. A/P Assessment and Plan Resp failure COPD Renal insuff Increased troponoin Advanced dementia DNR PLAN: Cont BIPAP Aerosol nebs IV Solumedrol Cont Abx Palliative care evaluating pt DW Family at BS. Yoandy Guzmán MD Jun 04, 2016 16:41
--- NOTE | 2016-06-04 16:47 | RADRPT ---
EXAM DATE/TIME: 06/04/2016 15:43 [facility] COMPARISON: CT PULMONARY ANGIOGRAM, June 03, 2016, 1:23. INDICATIONS : Increased BUN/Creatinine. MEDICAL HISTORY : Hypercholesterolemia. Hypertension. Chronic obstructive pulmonary disease. Dementia. Dyspnea. SURGICAL HISTORY : Right hip surgery. ENCOUNTER: Initial ACUITY: 1 day PAIN SCORE: Nonresponsive. LOCATION: Bilateral flank MEASUREMENTS: RIGHT KIDNEY: 9.9 x 4.1 x 4.5 cm LEFT KIDNEY: 10.2 x 4.2 x 4.4 cm FINDINGS: Kidneys reveal no evidence of hydronephrosis with a few small subcentimeter cysts the cortex of the r ight kidney. Parenchyma is mildly echogenic with well-maintained cortical medullary junctions. Urinar y bladder decompressed with Truong catheter in place. CONCLUSION: No evidence of hydronephrosis or obstructive uropathy. Mild increased echogenicity of the renal jaz x with well-maintained cortical medullary junction suggesting mild renal parenchymal disease Ramirez Gipson MD on June 04, 2016 at 16:44 Board Certified Radiologist. This report was verified electronically.
[2016-06-04] MEDS ORDERED: HALOPERIDOL LACTATE 5 MG/ML AMP IV PRN (19:30)
[2016-06-04] MEDS: ATORVASTATIN 20 MG TAB PO SCH (20:01)
[2016-06-04] MEDS: DONEPEZIL HCL 5 MG TAB PO SCH (20:01)
--- NOTE | 2016-06-04 22:49 | EKG ---
Date Performed: 06/03/2016 Time Performed: 06:50:04 PTAGE: 89 years EKG: Sinus tachycardia Inferior ST changes are nonspecific Borderline ECG PREVIOUS TRACING : 06/02/2016 22.32 Compared to prior tracing no significant change DOCTOR: Danielle Tyler Interpretating Date/Time 06/04/2016 22:47:28
[2016-06-05] VITALS (11 sets, daily range): BP systolic 91–109; BP diastolic 52–58; PULSE 95–103; RESP 15–27; TEMP 98–98.9; O2SAT 91–97
[2016-06-05] MEDS: RESP: ALBUTEROL 2.5 MG/IPRATROPIUM 0.5 MG NEB (SCH) NEB ×3 (03:35→11:27)
[2016-06-05] MEDS: CHLORHEXIDINE GLUCONATE 2 % 1 PACK (2 CLOTHS)(taper/protocol) TOP SCH (04:00)
[2016-06-05] MEDS: methylPREDNISolone SOD SUCC 40 MG/1 ML VIAL IV PUSH SCH ×2 (04:42→10:58)
[2016-06-05] MEDS: CEFEPIME INJ 1,000 MG in SODIUM CHLORIDE 0.9% INJ 100 ML IV SCH ×2 (04:42→12:50)
[2016-06-05] MEDS: BUMETANIDE INJ 100 ML IV SCH (04:44)
[2016-06-05] MEDS: LORazepam 2 MG/ML VIAL IM PRN ×3 (05:08→14:30)
[2016-06-05] MEDS: QUEtiapine FUMARATE 25 MG TAB PO SCH ×2 (07:13→11:06)
[2016-06-05] MEDS: MEMANTINE HCL 10 MG TAB PO SCH (07:13)
[2016-06-05] MEDS: CHOLECALCIFEROL (VIT D3) 5000 UNIT CAP PO SCH (07:13)
[2016-06-05] MEDS: CALCIUM/VITAMIN D 250 MG/125 U TAB PO SCH ×2 (07:13→11:05)
[2016-06-05] MEDS: amLODIPine BESYLATE 5 MG TAB PO SCH (07:13)
--- NOTE | 2016-06-05 07:51 | PD.CARD.PN ---
Subjective Subjective Remarks Agitation over night Considering hospice, awaiting meeting Objective Medications Current Medications Medications (Trade) Dose Ordered Sig/Patsy Route Start Time Stop Time Status Last Admin (Tylenol) 650 mg Q4H PRN PO 05/28/16 17:30 (Zofran Inj) 4 mg Q6H PRN IVP 05/28/16 17:30 (Narcan Inj) 0.4 mg UNSCH PRN IV 05/28/16 17:30 (Norvasc) 5 mg DAILY PO 05/28/16 18:00 06/03/16 09:32 (Lipitor) 20 mg HS PO 05/28/16 21:00 06/03/16 02:33 (Aricept) 5 mg HS PO 05/28/16 21:00 06/03/16 02:34 (Ativan) 0.5 mg DAILY PRN PO 05/28/16 18:00 06/03/16 15:07 (NS Flush) 2 ml UNSCH PRN IVF 05/29/16 10:00 (NS Flush) 2 ml BID IVF 05/29/16 21:00 06/04/16 08:29 (Lovenox Inj) 30 mg Q24H SQ 05/30/16 10:00 06/04/16 08:19 (Rocky 5-325 Mg) 1 tab Q4H PRN PO 05/29/16 10:00 06/02/16 16:07 (Oscal-D 250-125) 250 mg TID PO 05/29/16 13:00 06/03/16 09:32 (Benadryl) 25 mg Q6H PRN PO 05/29/16 10:00 06/03/16 15:07 (Morphine Inj) 3 mg Q3H PRN IV PUSH 05/29/16 10:00 06/04/16 18:20 (Vitamin D3) 5,000 units DAILY PO 05/30/16 09:00 06/03/16 09:32 (Milk Of Magnesia Liq) 30 ml DAILY PRN PO 05/30/16 10:30 05/30/16 12:44 (Namenda) 10 mg BID PO 05/30/16 21:00 06/03/16 09:31 (SEROquel) 25 mg TID PO 05/30/16 13:00 06/03/16 09:00 Valsartan 320 mg 320 mg DAILY PO 05/30/16 11:00 Hold 06/03/16 09:32 Cefepime HCl 1000 mg/Sodium Chloride 100 ml @ 200 mls/hr Q8H IV 06/01/16 13:00 06/05/16 04:42 (Zithromax Inj/ NS 250 ml Inj) 250 ml @ 250 mls/hr Q24H IV 06/01/16 14:00 06/04/16 12:13 Miscellaneous Information Patient in critical care unit? Ass... [id number] 06/02/16 22:30 (Chlorhexidine 2% Cloth) 3 pack DAILY@04 TOP 06/03/16 04:00 06/07/16 04:01 06/05/16 04:00 (Chlorhexidine 2% Cloth) 3 pack UNSCH PRN TOP 06/02/16 22:30 06/07/16 22:29 Methylprednisolone Sodium Succinate 40 mg 40 mg Q6HR IV PUSH 06/03/16 00:00 06/05/16 04:42 (NS 1000 ml Inj) 1,000 ml @ 75 mls/hr [id number] IV 06/02/16 23:45 06/04/16 01:18 (Trandate Inj) 10 mg Q6H PRN IV 06/03/16 13:15 (Apresoline Inj) 10 mg Q6H PRN IV 06/03/16 13:15 Lorazepam 0.5 mg 0.5 mg Q6H PRN IM 06/03/16 13:15 06/05/16 05:08 (Bumex Inj) 100 ml @ 4 mls/hr CONTINUOUS IV 06/04/16 15:00 06/05/16 04:44 (Haldol Inj) 2 mg Q8H PRN IV 06/04/16 19:30 06/05/16 04:42 Vital Signs / I&O Vital Signs Date Time Temp Pulse Resp B/P Pulse Ox O2 Delivery O2 Flow Rate FiO2 06/05/16 07:17 94 70 06/05/16 07:00 96 Bi-Pap 85 06/05/16 06:00 100 06/05/16 04:16 97 80 06/05/16 04:00 98.0 98 19 91/52 96 06/05/16 04:00 98 06/05/16 02:00 103 06/05/16 01:04 94 85 06/05/16 00:00 98.2 99 27 95/55 94 06/05/16 00:00 99 06/04/16 22:00 101 06/04/16 20:00 98.6 104 16 103/61 96 06/04/16 20:00 104 06/04/16 19:14 95 85 06/04/16 19:00 96 Bi-Pap 85 06/04/16 18:00 125 06/04/16 16:05 95 85 06/04/16 16:00 106 06/04/16 16:00 98.7 106 21 107/59 94 06/04/16 14:00 110 06/04/16 12:00 105 06/04/16 12:00 99.2 105 26 111/64 97 06/04/16 11:20 93 80 06/04/16 10:00 104 06/04/16 08:00 110 06/04/16 08:00 99.4 110 20 109/64 98 I/O 06/04/16 06/04/16 06/04/16 06/05/16 06/05/16 06/05/16 07:00 15:00 23:00 07:00 15:00 23:00 Intake Total 340 ml 273 ml 554 ml 236 ml Output Total 150 ml 350 ml 650 ml Balance 340 ml 123 ml 204 ml -414 ml Intake Oral 0 ml 0 ml IV Total 340 ml 273 ml 554 ml 236 ml Output Urine Total 150 ml 350 ml 650 ml # Voids 2 # Bowel Movements 1 0 0 0 Physical Exam GENERAL: On Bipap HEAD: Atraumatic. Normocephalic. EYES: Pupils equal and round. No scleral icterus. No injection or drainage. ENT: No nasal bleeding or discharge. Mucous membranes pink and moist. NECK: Trachea midline. No JVD. CARDIOVASCULAR: Tachycardic, 3/6 crescendo-decrescendo to the RSB RESPIRATORY: Decreased breath sounds bilaterally with rhonchi GASTROINTESTINAL: Abdomen soft, non-tender, nondistended. Hepatic and splenic margins not palpable. MUSCULOSKELETAL: Extremities without clubbing, cyanosis, or edema. No obvious deformities. NEUROLOGICAL: Awake and alert. No obvious focal defects Laboratory Laboratory Tests Test 06/04/16 06/04/16 11:25 18:47 Lactic Acid Level 2.3 mmol/L Urine Random Creatinine 44.2 MG/DL Urine Random Sodium 93 MEQ/L Assessment and Plan Problem List: (1) NSTEMI (non-ST elevated myocardial infarction) (2) Aortic stenosis (3) Renal insufficiency (4) Tachycardia (5) Status post intramedullary nail fixation of intertrochanteric hip fracture (6) Hip fracture, right (7) Dementia (8) PNA (pneumonia) Assessment and Plan 1) Elevated troponin, probably demand ischemia with respiratory insufficiency, tachycardia, and hypoxia 2) Continue with medical management at this time 3) Considering hospice, agree with decision, will see PRN call with questions Problem Qualifiers (1) Aortic stenosis: Qualified Code: I35.0 - Aortic valve stenosis, unspecified etiology (2) Hip fracture, right: Qualified Code: S72.001A - Hip fracture, right, closed, initial encounter (3) Dementia: Bhavik Mahmood DO Jun 05, 2016 07:50 Bhavik Mahmood DO Jun 05, 2016 07:50
[2016-06-05] MEDS: SODIUM CHLORIDE 0.9% FLUSH 5 ML FLUSH IVF SCH (07:54)
[2016-06-05 07:57] LABS: AUTOMATED NEUTROPHIL # 11.3 TH/MM3 (1.8-7.7); BASOPHIL % 0.1 % (0.0-2.0); HEMATOCRIT 22.7 % (39.0-51.0); HEMO FLAGS DIFF FINAL; LYMPH % 3.7 % (9.0-44.0); LYMPHOCYTE # 0.5 TH/MM3 (1.0-4.8); MEAN CELL VOLUME 96.7 FL (80.0-100.0); MEAN CORPUSCULAR HEMOGLOBIN 32.3 PG (27.0-34.0); MEAN CORPUSCULAR HGB CONC 33.4 % (32.0-36.0); MONO % 6.8 % (0.0-8.0); NEUT % 89.4 % (16.0-70.0); PLATELET COUNT 259 TH/MM3 (150-450); RED BLOOD COUNT 2.35 MIL/MM3 (4.50-5.90); RED CELL DISTRIBUTION WIDTH 13.5 % (11.6-17.2); WHITE BLOOD COUNT 12.6 TH/MM3 (4.0-11.0)
[2016-06-05 08:49] LABS: INDIRECT BILIRUBIN 0.3 MG/DL (0.0-0.8); POTASSIUM 4.6 MEQ/L (3.5-5.1); TOTAL BILIRUBIN ADULT 0.5 MG/DL (0.2-1.0)
[2016-06-05] MEDS: ENOXAPARIN SODIUM 30 MG/0.3 ML SYRINGE SQ SCH (09:16)
[2016-06-05] MEDS: MORPHINE SULFATE 4 MG/ML INJ IV PUSH PRN ×2 (09:16→14:26)
--- NOTE | 2016-06-05 10:00 | HHI.NPPN ---
Subjective History of Present Illness 89 year old with chf, arf/ckd Review of Systems General Constitutional: Fatigue Objective Data Data 06/04/16 06/05/16 19:00 07:00 Intake Total 273 ml 790 ml Output Total 150 ml 1000 ml Balance 123 ml -210 ml Intake Oral 0 ml IV Total 273 ml 790 ml Output Urine Total 150 ml 1000 ml # Bowel Movements 0 0 Vital Signs Date Time Temp Pulse Resp B/P Pulse Ox O2 Delivery O2 Flow Rate FiO2 06/05/16 08:00 100 06/05/16 08:00 98.4 98 20 109/58 91 06/05/16 07:17 94 70 06/05/16 07:00 96 Bi-Pap 85 06/05/16 06:00 100 06/05/16 04:16 97 80 06/05/16 04:00 98.0 98 19 91/52 96 06/05/16 04:00 98 06/05/16 02:00 103 06/05/16 01:04 94 85 06/05/16 00:00 98.2 99 27 95/55 94 06/05/16 00:00 99 06/04/16 22:00 101 06/04/16 20:00 98.6 104 16 103/61 96 06/04/16 20:00 104 06/04/16 19:14 95 85 06/04/16 19:00 96 Bi-Pap 85 06/04/16 18:00 125 06/04/16 16:05 95 85 06/04/16 16:00 106 06/04/16 16:00 98.7 106 21 107/59 94 06/04/16 14:00 110 06/04/16 12:00 105 06/04/16 12:00 99.2 105 26 111/64 97 06/04/16 11:20 93 80 06/04/16 10:00 104 -: 06/05/16 0635 06/05/16 0635 Physical Exam General Appearance: Well Developed, Well Nourished Eyes Eye Exam: Pupils Equal, Pupils Reactive Ears & Nose Ears & Nose Exam: Nasal Mucosa [place] Neck Neck Exam: Neck Supple, Trachea Midline Pulmonary Resp Exam: No Distress, Rhonchi, Decreased Bases, Diminished Breath Sounds Cardiology CV Exam: Tachycardia, Murmur Gastrointestinal/Abdomen GI Exam: Soft, Non-Tender, Bowel Sounds Present, Non-Distended Musculoskeletal MS Exam: Normal Tone, Good Strength Integumentary Skin Exam: Warm, Dry Extremeties Extremities Exam: No Edema, Pedal Pulses Palpable VTE Prophylaxis Device: SCDs Assessment/Plan Problem List: (1) Acute renal failure Plan: Patient appears to have acute tubular necrosis from underlying medical condition and the he did receive contrast study recently, He is diuresing well on Bumex drip UOP improved creatinine higher family discussing Hospice care as Troponin 24 advanced age continue supportive care (2) Hyperkalemia Plan: Treated medically (3) Acidosis, metabolic Plan: Ordered sodium bicarbonate (4) CHF (congestive heart failure) Plan: Bumex drip (5) CKD (chronic kidney disease) stage 3, GFR 30-59 ml/min Plan: Multiple medical issues (6) PNA (pneumonia) Plan: Was treated with Zithromax and cefepime (7) NSTEMI (non-ST elevated myocardial infarction) Plan: Cardiology following he has severe aortic stenosis (8) Hip fracture, right Plan: He has surgeries recently Problem Qualifiers (1) Hip fracture, right: Qualified Code: S72.001A - Hip fracture, right, closed, initial encounter Nia Hwang MD Jun 05, 2016 09:59
--- NOTE | 2016-06-05 10:41 | HHI.DCPOC ---
Discharge Care Plan Diagnosis: (1) Status post intramedullary nail fixation of intertrochanteric hip fracture (2) CHF (congestive heart failure) Your Health Problems Are: Anxiety Difficulty with ADL Chest Pain Shortness of Breath Goals to Promote Your Health * To prevent worsening of your condition and complications * To maintain your health at the optimal level Directions to Meet Your Goals Take your medications as prescribed Follow your dietary instruction Follow activity as directed Keep your appointments as scheduled Take your immunizations and boosters as scheduled If your symptoms worsen call your PCP, if no PCP go to Urgent Care Center or Emergency Room Smoking is Dangerous to Your Health. Avoid second hand smoke Call the 24-hour hour crisis hotline for domestic abuse at Savanah Carrillo Jun 05, 2016 10:41
--- NOTE | 2016-06-05 11:24 | HHI.PR ---
Subjective Interval History appears comfortable still on BIPAP and son at bed side intermittent agitation controlled with medications worsening renal function family met sheryl palliative care: plan to go to hospice care center today in [place] Review of Systems Constitutional Constitutional: Fatigue, Weakness (generalized, postop day 4 improving) Musculoskeletal MS: Weakness (status post hip fracture) Psychiatric Psychiatric: Normal Mood Vitals/Results Intake & Output 06/04/16 06/04/16 06/05/16 15:00 23:00 07:00 Intake Total 273 ml 554 ml 236 ml Output Total 150 ml 350 ml 650 ml Balance 123 ml 204 ml -414 ml Intake Oral 0 ml 0 ml IV Total 273 ml 554 ml 236 ml Output Urine Total 150 ml 350 ml 650 ml # Bowel Movements 0 0 0 Vital Signs Vital Signs Date Time Temp Pulse Resp B/P Pulse Ox O2 Delivery O2 Flow Rate FiO2 06/05/16 10:00 97 06/05/16 08:00 100 06/05/16 08:00 98.4 98 20 109/58 91 06/05/16 07:17 94 70 06/05/16 07:00 96 Bi-Pap 85 06/05/16 06:00 100 06/05/16 04:16 97 80 06/05/16 04:00 98.0 98 19 91/52 96 06/05/16 04:00 98 06/05/16 02:00 103 06/05/16 01:04 94 85 06/05/16 00:00 98.2 99 27 95/55 94 06/05/16 00:00 99 06/04/16 22:00 101 06/04/16 20:00 98.6 104 16 103/61 96 06/04/16 20:00 104 06/04/16 19:14 95 85 06/04/16 19:00 96 Bi-Pap 85 06/04/16 18:00 125 06/04/16 16:05 95 85 06/04/16 16:00 106 06/04/16 16:00 98.7 106 21 107/59 94 06/04/16 14:00 110 06/04/16 12:00 105 06/04/16 12:00 99.2 105 26 111/64 97 CBC/BMP: 06/05/16 0635 06/05/16 0635 Lab Results Laboratory Tests Test 06/04/16 06/04/16 06/05/16 11:25 18:47 06:35 Lactic Acid Level 2.3 mmol/L Urine Random Creatinine 44.2 MG/DL Urine Random Sodium 93 MEQ/L White Blood Count 12.6 TH/MM3 Red Blood Count 2.35 MIL/MM3 Hemoglobin 7.6 GM/DL Hematocrit 22.7 % Mean Corpuscular Volume 96.7 FL Mean Corpuscular Hemoglobin 32.3 PG Mean Corpuscular Hemoglobin 33.4 % Concent Red Cell Distribution Width 13.5 % Platelet Count 259 TH/MM3 Mean Platelet Volume 8.4 FL Neutrophils (%) (Auto) 89.4 % Lymphocytes (%) (Auto) 3.7 % Monocytes (%) (Auto) 6.8 % Eosinophils (%) (Auto) 0.0 % Basophils (%) (Auto) 0.1 % Neutrophils # (Auto) 11.3 TH/MM3 Lymphocytes # (Auto) 0.5 TH/MM3 Monocytes # (Auto) 0.9 TH/MM3 Eosinophils # (Auto) 0.0 TH/MM3 Basophils # (Auto) 0.0 TH/MM3 CBC Comment DIFF FINAL Differential Comment Sodium Level 141 MEQ/L Potassium Level 4.6 MEQ/L Chloride Level 109 MEQ/L Carbon Dioxide Level 19.0 MEQ/L Anion Gap 13 MEQ/L Blood Urea Nitrogen 93 MG/DL Creatinine 3.65 MG/DL Estimat Glomerular Filtration 16 ML/MIN Rate Random Glucose 150 MG/DL Calcium Level 8.2 MG/DL Total Bilirubin 0.5 MG/DL Direct Bilirubin 0.2 MG/DL Indirect Bilirubin 0.3 MG/DL Aspartate Amino Transf 562 U/L (AST/SGOT) Alanine Aminotransferase 639 U/L (ALT/SGPT) Alkaline Phosphatase 62 U/L Troponin I 24.00 NG/ML Total Protein 6.2 GM/DL Albumin 2.5 GM/DL Physical Exam General General Appearance: Comfortable Eyes Eye Exam: Pupils Equal, Pupils Reactive Ears & Nose Ears & Nose Exam: Nasal Mucosa [place] Neck Neck Exam: Neck Supple, Trachea Midline Pulmonary Resp Exam: No Distress, Rhonchi, Decreased Bases, Diminished Breath Sounds Cardiology CV Exam: Tachycardia, Murmur Gastrointestinal/Abdomen GI Exam: Soft, Non-Tender, Bowel Sounds Present, Non-Distended Musculoskeletal MS Exam: Normal Tone, Good Strength Integumentary Skin Exam: Warm, Dry Extremeties Extremities Exam: No Edema, Pedal Pulses Palpable VTE Prophylaxis VTE Prophylaxis Device: SCDs VTE Prophylaxis Meds: Lovenox Assessment/Plan Problem List: (1) Syncope (2) Hip fracture, right (3) Renal insufficiency (4) Aortic stenosis (5) Dementia (6) Status post intramedullary nail fixation of intertrochanteric hip fracture Assessment/Plan (1) Syncope (2) Hip fracture, right (3) Renal insufficiency (4) Aortic stenosis (5) Dementia (6) Status post intramedullary nail fixation of intertrochanteric hip fracture 7. pna, possible aspiration 8. acute kidney injury, possible chronic 9. Acute respiratory failure Plan Seen in ICU On BiPAP unable to pass dobhoff/ NG tube sec to agitation worsening renal function, minimal urine out put mirza inserted pulm /nephrology, palliative care input appreciated CT report reviewed no PE Status post intramedullary nail fixation of intertrochanteric hip fracture 05/29 Continue postop carepain management, physical therapy, Lovenox for DVT prophylaxis Status post surgical repair day 5 syncope, work up done Echocardiogram results noted, EF 55-60% with aortic stenosis (severe) cardiac telemetry appreciate cardiology input, pt. with multiple comorbidities, adv. age, not a candidate for surgery. Cont. with med management Increased troponin and ST elevation SC discussed with cardiology, medical management Aspirin Nitropaste Continue with Seroquel, Namenda, Aricept for dementia Blood pressure management Continue amlodipine valsartan held sec to worsened renal function Bowel regimen Dual nebs increased to every 4 [id number], and every 2 when necessary for shortness of breath wheezing. New onset pneumonia. IV antibiotics D/W RN in detail Condition critical prognosis guarded discussed with son in detail advanced age with dementia, s/p fall, hip surgery with NSTEMI, severe aortic stenosis, resp insufficiency, Pneumonia and now worsening renal function, prognosis appears extremely guarded and poor. d/w son in detail family agrees to proceed with comfort care, plan to go to hospice care center. Problem Qualifiers (1) Syncope: (2) Hip fracture, right: Qualified Code: S72.001A - Hip fracture, right, closed, initial encounter (3) Aortic stenosis: Qualified Code: I35.0 - Aortic valve stenosis, unspecified etiology (4) Dementia: Veronica rKause MD Jun 05, 2016 11:24
--- NOTE | 2016-06-06 19:38 | HHI.DS ---
Discharge Summary Admission Date May 28, 2016 at 14:56 Discharge Date: Jun 06, 2016 Admitting Diagnosis hip fracture, syncope (1) Hip fracture, right (2) Status post intramedullary nail fixation of intertrochanteric hip fracture (3) Tachycardia (4) PNA (pneumonia) (5) Acute renal failure (6) Debility (7) Acidosis, metabolic (8) CHF (congestive heart failure) (9) Dyspnea (10) Agitation (11) Pain (12) Syncope (13) Aortic stenosis (14) Dementia Procedures Date of Surgery: May 29, 2016 Preoperative Diagnosis: Right hip intertrochanteric fracture Postoperative Diagnosis: Procedure: Right hip reduction and intramedullary nail fixation CBC/BMP: 06/05/16 0635 06/05/16 0635 Significant Findings Laboratory Tests Test 06/04/16 06/04/16 06/05/16 04:16 11:25 06:35 White Blood Count 16.9 TH/MM3 12.6 TH/MM3 (4.0-11.0) (4.0-11.0) Red Blood Count 2.60 MIL/MM3 2.35 MIL/MM3 (4.50-5.90) (4.50-5.90) Hemoglobin 8.5 GM/DL 7.6 GM/DL (13.0-17.0) (13.0-17.0) Hematocrit 25.5 % 22.7 % (39.0-51.0) (39.0-51.0) Potassium Level 5.5 MEQ/L (3.5-5.1) Carbon Dioxide Level 15.5 MEQ/L 19.0 MEQ/L (21.0-32.0) (21.0-32.0) Anion Gap 16 MEQ/L (5-15) Blood Urea Nitrogen 60 MG/DL (7-18) 93 MG/DL (7-18) Creatinine 2.92 MG/DL 3.65 MG/DL (0.60-1.30) (0.60-1.30) Estimat Glomerular Filtration 20 ML/MIN (>89) 16 ML/MIN (>89) Rate Random Glucose 123 MG/DL 150 MG/DL (74-106) (74-106) Lactic Acid Level 2.3 mmol/L (0.4-2.0) Neutrophils (%) (Auto) 89.4 % (16.0-70.0) Lymphocytes (%) (Auto) 3.7 % (9.0-44.0) Neutrophils # (Auto) 11.3 TH/MM3 (1.8-7.7) Lymphocytes # (Auto) 0.5 TH/MM3 (1.0-4.8) Chloride Level 109 MEQ/L (98-107) Calcium Level 8.2 MG/DL (8.5-10.1) Aspartate Amino Transf 562 U/L (15-37) (AST/SGOT) Alanine Aminotransferase 639 U/L (12-78) (ALT/SGPT) Troponin I 24.00 NG/ML (0.02-0.05) Total Protein 6.2 GM/DL (6.4-8.2) Albumin 2.5 GM/DL (3.4-5.0) Imaging Last Impressions Renal Ultrasound 06/04/16 0000 Signed Impressions: Service Date/Time: Saturday, June 04, 2016 15:43 - CONCLUSION: No evidence of hydronephrosis or obstructive uropathy. Mild increased echogenicity of the renal cortex with well-maintained cortical medullary junction suggesting mild renal parenchymal disease Ramirez Gipson MD Chest X-Ray 06/03/16 0000 Signed Impressions: Service Date/Time: Friday, June 03, 2016 23:51 - CONCLUSION: Dobbhoff tube in the right lung. Arpit Chappell MD CT Angiography 06/03/16 0000 Signed Impressions: Service Date/Time: Friday, June 03, 2016 01:23 - CONCLUSION: 1. No pulmonary embolus. 2. Mild bilateral pleural effusions being greater on the left. 3. Bibasilar areas of consolidation or atelectasis. Arpit Chappell MD Carotid Artery Ultrasound 05/30/16 0000 Signed Impressions: Service Date/Time: Monday, May 30, 2016 14:04 - CONCLUSION: 1. There is calcified atherosclerotic plaquing at the carotid bifurcations. No hemodynamically significant stenosis is evident by velocity indices. Ashish Harrell MD Hip X-Ray 05/29/16 0000 Signed Impressions: Service Date/Time: May 10:24 - CONCLUSION: Limited images as detailed above. Ever Stephen Jr., MD Head CT 05/28/16 1221 Signed Impressions: Service Date/Time: Saturday, May 28, 2016 13:59 - CONCLUSION: No acute intracranial disease. Cerebral atrophy. Sander Galindo MD Hip and Pelvis X-Ray 05/28/16 0000 Signed Impressions: Service Date/Time: Saturday, May 28, 2016 13:10 - CONCLUSION: Mildly displaced intertrochanteric fracture of right hip. Sander Galindo MD Hospital Course Mr. Curran is an 89-year-old male with history of Alzheimer's dementia, a resident at [facility], who presented to the emergency room on 05/28/16 after a fall with complaints of hip pain. He had no recollection of the fall. Initial x-ray identified a mildly displaced intertrochanteric trochanteric fracture of the right hip. Initial labs identified some mild anemia with a hemoglobin of 11, as well as elevated creatinine with a GFR of 38. On 05/29/16 he underwent Right hip reduction and intramedullary nail fixation. He was placed on DVT prophylaxis with Lovenox 30 mg daily. An echocardiogram was completed pre-operatively which identified an ejection fraction of 55-60% with severe aortic stenosis with a valve area of 1.2 and a mean gradient of 46. Cardiology was consulted for evaluation In light of his advanced age and general debility further intervention was not considered. Patient's son agreed that his father is not a great candidate for AVR or TAVR, will continue with current management. Postoperatively, his pulmonary status declined, as evidenced by decreasing pulse oximetry and increase need for supplemental oxygen. On 05/31/16 Chest x- ray identified mild lori-perihilar infiltrates consistent with fluid overload and atypical pneumonia. He was started on antibiotics. On 06/02/16, He was advanced to a nonrebreather and on 06/03/16 he was placed on BiPAP with 100% FiO2 and a pulse ox of 92 . He also complained of chest pain at this time. EKG was completed. Serial troponins were elevated. Cardiology was reconsulted to evaluate and it was determined he had incurred a NSTEMI , probably demand ischemia in light of respiratory insufficiency, tachycardia. The recommendation was for medical management only. Was treated with aspirin and nitroglycerin. Pulmonary consultation was also obtained to assist with respiratory management. On 06/04/16. He was also noted to have declining renal function appearing to have an acute on chronic renal injury. Since admission, his GFR has been 38-40 and then it dropped to 20. He was also noted to be hyperkalemic with a potassium of 5.5, CO2 had dropped to 15.5 and lactic acid is now above normal limits. Nephrology was consulted. 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 A swallow eval was completed on 06/02/16. He was found to be able to manage chemical soft diet with thin liquids without overt symptoms of aspiration. Repeat study was done on 06/03 at which time he exhibited severe oral phase dysfunction due to cognition. He was unable to manage any consistency and was evaluated to be at high risk for aspiration. He was recommended for NPO. Staff was unable to pass a feeding tube due to agitation. Pt. required transfer to ICU where consultants continued to follow and manage patient. Palliative care was consulted to assist family with decision making. Patient continued to deteriorate, family decided to proceed with hospice. Pt Condition on Discharge: Deteriorating Discharge Disposition: Hospice/Med Facility Discharge Instructions DIET: Follow Instructions for: As Tolerated, No Restrictions Speech Therapy-Diet Recommends: Mechanical Soft, Chopped Meat w/Gravy Activities you can perform: Continue Bedrest Follow up Referrals: Orthopedics - 2 Weeks @ [facility] with Waqar Tilley MD New Medications: Hydrocodone-Acetaminophen ([employer]) 5-325 mg Tab 1 TAB PO Q4H PRN PAIN #60 Ref 0 TAB Rivaroxaban (Xarelto) 10 Mg Tab 10 MG PO DAILY Blood Clot Prevention #14 Ref 0 TAB Walker/Adult/Folding (Walker/Adult/Folding) 1 Mis Mis 1 EA .ROUTE DIRECTED #1 Ref 0 EA Continued Medications: Amlodipine (Amlodipine) 5 Mg Tab 5 MG PO DAILY Blood Pressure Management #30 Ref 0 TAB Atorvastatin (Atorvastatin) 20 Mg Tab 20 MG PO HS Cholesterol Management #30 Ref 0 TAB Donepezil (Aricept) 5 Mg Tab 5 MG PO HS Dementia #30 Ref 0 TAB Ketoconazole (Topical) (Ketodan) 2 % Aer Lorazepam (Lorazepam) 1 Mg Tab 1 MG PO Q8H PRN ANXIETY Ref 0 TAB Memantine (Namenda) 10 Mg Tab 10 MG PO BID Alzheimer Disease #30 Ref 0 TAB Quetiapine (Seroquel) 25 Mg Tab 25 MG PO TID #60 Ref 0 TAB Saccharomyces Boulardii (Florastor) 250 Mg Cap 250 MG PO BID Nutritional Supplement Ref 0 CAP Discontinued Medications: Lorazepam (Ativan) 0.5 Mg Tab 0.5 MG PO DAILY PRN ANXIETY AND/OR AGITATION Ref 0 TAB Valsartan (Valsartan) 320 Mg Tab 320 MG PO DAILY #30 Ref 0 TAB Savanah CarrilloP Jun 06, 2016 19:38 Lorazepam (Lorazepam) 1 Mg Tab 1 MG PO Q8H PRN ANXIETY Ref 0 TAB Memantine (Namenda) 10 Mg Tab 10 MG PO BID Alzheimer Disease #30 Ref 0 TAB Quetiapine (Seroquel) 25 Mg Tab 25 MG PO TID #60 Ref 0 TAB Saccharomyces Boulardii (Florastor) 250 Mg Cap 250 MG PO BID Nutritional Supplement Ref 0 CAP Discontinued Medications: Lorazepam (Ativan) 0.5 Mg Tab 0.5 MG PO DAILY PRN ANXIETY AND/OR AGITATION Ref 0 TAB Valsartan (Valsartan) 320 Mg Tab 320 MG PO DAILY #30 Ref 0 TAB Savanah Carrillo Jun 06, 2016 19:38
== END 2016-06-05 14:35 | disposition hospice, inpatient (51) | DRG 480 ==
LOC: PHED 12:19 → PHEDA 14:56 → PHEDH 18:56 → HPAC 05-29 06:59 → N06B 05-29 14:02 → HIMW 06-02 22:05
PROVIDERS: ADMIT Specialist; ATTEND Specialist
PROC: 0QS606Z Reposition Right Upper Femur with Intramedullary Internal Fixation Device, Open Approach (ICD-10-PCS; principal; 2016-05-29 09:47)
PROC: 5A09457 Assistance with Respiratory Ventilation, 24-96 Consecutive Hours, Continuous Positive Airway Pressure (ICD-10-PCS; 2016-06-02)
DX: S72.141A Displaced intertrochanteric fracture of right femur, initial encounter for closed fracture (principal); J96.01 Acute respiratory failure with hypoxia; N17.0 Acute kidney failure with tubular necrosis; J69.0 Pneumonitis due to inhalation of food and vomit; I21.4 Non-ST elevation (NSTEMI) myocardial infarction; Z51.5 Encounter for palliative care; I13.0 Hypertensive heart and chronic kidney disease with heart failure and stage 1 through stage 4 chronic kidney disease, or unspecified chronic kidney disease; I50.9 Heart failure, unspecified; J44.0 Chronic obstructive pulmonary disease with (acute) lower respiratory infection; E87.2 Acidosis; G30.9 Alzheimer's disease, unspecified; F02.80 Dementia in other diseases classified elsewhere, unspecified severity, without behavioral disturbance, psychotic disturbance, mood disturbance, and anxiety; E87.5 Hyperkalemia; E78.00 Pure hypercholesterolemia, unspecified; I35.0 Nonrheumatic aortic (valve) stenosis; N18.3 Chronic kidney disease, stage 3 (moderate); E78.5 Hyperlipidemia, unspecified; D63.8 Anemia in other chronic diseases classified elsewhere; M19.90 Unspecified osteoarthritis, unspecified site; F41.9 Anxiety disorder, unspecified; R55 Syncope and collapse; R45.1 Restlessness and agitation; R00.0 Tachycardia, unspecified; Y92.129 Unspecified place in nursing home as the place of occurrence of the external cause; W19.XXXA Unspecified fall, initial encounter; Z66 Do not resuscitate
CPT/HCPCS: 36600; 70450; 71010; 71275; 73502; 76000; 76775; 76937; 80048; 80053; 80076; 81001; 82306; 82550; 82552; 82570; 82805; 82948; 83605; 83735; 84300; 84484; 85014; 85018; 85025; 85027; 85379; 85610; 85730; 87641; 93005; 93306; 93880; 94002; 94003; 94640; 94664; C1713; J0131; J0456; J0690; J0692; J1580; J1630; J1650; J1815; J2060; J2270; J2405; J2920; J3010; J3370; J7030; J7050; J7120; L1830; Q9967